=== PATIENT | male | born 1955 | race Caucasian/White ===

== ENCOUNTER 2025-02-07 10:03 | Outpatient (CLI) | payer MEDICARE, SELFPAY ==
--- NOTE | ~2025-02-07 | XR_ITS ---
XR chest 2V 02/07/2025 14:35 Indication: Cough, weakness and congestion Procedure: 2 view chest Comparison: No prior studies for comparison. Findings: There is patchy bilateral airspace disease involving the right upper and left lower lung, c onsistent with pneumonia. The lungs are hyperinflated which is consistent with, but not diagnostic of chronic obstructive pulmonary disease. No pleural effusion or pneumothorax. No acute osseous abnorma lity. Impression: 1: Patchy bilateral airspace disease, compatible with pneumonia. Reviewed, dictated and finalized at location B. Impression: 1: Patchy bilateral airspace disease, compatible with pneumonia.
[2025-02-07 10:23] LABS: Basophils Absolute Auto 0.05 K/mm3 (0.00-0.10); Basophils Percent Auto 0.3 % (0.0-1.0); Eosinophils Absolute Auto 0.11 K/mm3 (0.02-0.50); Eosinophils Percent Auto 0.7 % (1.0-6.0); Hematocrit 35.3 % (37.0-46.0); Hemoglobin 11.5 g/dL (12.4-15.3); Immature Granulocyte Absolute 0.14 K/mm3 (0.00-0.00); Immature Granulocyte Percent A 0.8 % (0.0-0.0); Immature Platelet Fraction Pct 1.4 % (1.0-7.0); Lymphocytes Absolute Auto 0.88 K/mm3 (1.10-4.50); Lymphocytes Percent Auto 5.3 % (18.0-42.0); Mean Corpuscular HGB Conc 32.6 g/dL (32-36); Mean Corpuscular Hemoglobin 31.4 pg (27.0-31.0); Mean Corpuscular Volume 96.4 fL (78.0-102.0); Mean Platelet Volume 9.5 fl (8.7-11.0); Monocytes Absolute Auto 1.07 K/mm3 (0.10-0.90); Monocytes Percent Auto 6.4 % (2.0-11.0); Neutrophils Absolute Auto 14.35 K/mm3 (1.70-7.20); Neutrophils Percent Auto 86.5 % (50.0-70.0); Platelet Count Result 630 K/mm3 (150-420); Red Blood Count 3.66 M/mm3 (4.70-6.10); Red Cell Distribution Width 12.2 % (11.6-14.4); White Blood Count 16.6 K/mm3 (4.8-10.8)
[2025-02-07 11:11] LABS: Alanine Aminotransferase 55 U/L (16-63); Albumin Level 2.8 g/dL (3.4-5.0); Alkaline Phosphatase 91 U/L (46-116); Anion Gap 10 mmol/L (4-12); Aspartate Amino Transferase 38 U/L (15-37); Bilirubin,Total 0.9 mg/dL (0.00-1.00); Blood Urea Nitrogen 16 mg/dL (7-18); Calcium 8.8 mg/dL (8.5-10.1); Carbon Dioxide 28 mmol/L (21-32); Chloride 102 mmol/L (98-108); Cholesterol 161 mg/dL (0-200); Estimated Glomerular Filt Rate > 60; Glucose 114 mg/dL (70-99); HDL Direct 32 mg/dL (40-60); LDL Cholesterol Calculated 112 mg/dL (<130); Osmolality Calculated 292 mOsm/kg (285-295); Potassium 4.4 mmol/L (3.5-5.1); Sodium 140 mmol/L (136-145); Total Protein 7.3 g/dL (6.4-8.2); Triglycerides 83 mg/dL (0-150)
--- OUTSIDE RECORDS SUMMARY | 2025-02-07 11:17 | XMS_ITS | Encounter Summary ---
Author Organization [facility] Address [address] [place] [address] Care Team Providers Care Retail Security Professional Name Role Phone En Ibrahim MD Primary Care Provider [phone] Nick Barrientos MD Unavailable Encounter Details Date Type Department Care Team (Late st Contact Info) Description 04/27/2019 Abstract SFL CONVERSION [address] [place] [address] , Generic Conversion, Social History Tobacco Use Types Packs/Day Years Used Date Smoking Tobacco: Every Day Cigarettes 1 45 Smokeless Tobacco: Never Alcohol Use Standard Drinks/Week Comments Yes 0 (1 standard drink = 0.6 oz pur e alcohol) moderate Sex and Gender Information Value Date Recorded Sex Assigned at Male 01/13/2025 12:37 PM MEMS DEVICE SCIENTIST Legal Sex Male 9:41 AM CDT Gender Identity Not on file Sexual Orientation Not on file Occupation Industry Job Start Date Job End Date retired Not on file Not on file Not on file documented as of this encounter Plan of Treatment Not on file documented as of this encounter Visit Diagnoses Not on filedocumented in this encounter Care Teams Retail Security Professional Relationship Specialty Start Date End Date En Ibrahim MD [address] [place] [address] PCP - General FAMILY PRACTICE 04/03/18 Nick Barrientos MD [address] [place] [address] Vascular/Plant Production Manager INTERNAL MEDICINE 04/03/18 documented as of this encounter
--- OUTSIDE RECORDS SUMMARY | 2025-02-07 11:17 | XMS_ITS | Clinical Summary ---
Author Organization [facility] Address [address] [place] [address] Care Team Providers Care Urban Gardening Specialist Name Role Phone En Ibrahim MD Primary Care Provider [phone] Nick Barrientos MD Unavailable Allergies No known active allergies Medications tamsulosin 0.4 MG Cap Take 0.4 mg by mouth daily. 3 04/12/2018 Active aspirin EC (ASPIRIN) 81 MG EC tablet Take 81 mg by mouth daily. Active atorvastatin 20 MG tablet TAKE 1 TABLET BY MOUTH EVERYDAY AT BEDTIME 5 12/31/2018 Active HYDROCHLOROTHIA ZIDE 12.5 MG capsule TAKE 1 CAPSULE BY MOUTH EVERY DAY IN THE MORNING 90 capsule 11/30/2020 Active Active Problems Problem Noted Date Diagnosed Date Nasolacrimal duct obstruction, acquired, right 0 05/01/2018 Bilateral carotid artery disease 04/24/2018 Smoker 04/24/2018 Hyperlipidemia, unspecified hyperlipidemia type 04/24/2018 Bilateral carotid artery disease Encounters Date Type Department Care Team Description 01/13/2025 12:41 PM MATHEMATICIAN RESEARCH - 01/13/2025 11:59 PM [facility] Hospital Encounter [facility] [address] [facility] [place] [address] En Ibrahim MD Discharge Disposition: Home or Self Care (Routine Discharge) 01/13/2025 Travel from Last 3 Months Family History Medical History Relation Comments Depression Daughter Stroke Daughter COPD Father Diabetes Father Cancer Mother Diabetes Mother Heart Disease Mother Relation Status Comments Daughter Alive Father (Age 76) Maternal Grandfather Maternal Grandmother Mother Alive diabetes,heart d isease Paternal Grandfather Paternal Grandmother Sister 1 Alive CVA Sister 2 (Age 52) mental retarda tion Social History Tobacco Use Types Packs/Day Years Used Date Smoking Tobacco: Every Day Cigarettes 0.5 45 Smokeless Tobacco: Never Tobacco Cessation:Ready to Q uit: No; Counseling Given: No Alcohol Use Standard Drinks/Week Comments Yes 0 (1 standard drink = 0.6 oz pur e alcohol) moderate Sex and Gender Information Value Date Recorded Sex Assigned at Male 01/13/2025 12:37 PM MATHEMATICIAN RESEARCH Legal Sex Male 9:41 AM CDT Gender Identity Not on file Sexual Orientation Not on file Occupation Industry Job Start Date Job End Date retired Not on file Not on file Not on file Last Filed Vital Signs Vital Sign Reading Time Taken Comments Blood Pressure 108/61 05/27/2020 1:21 PM CDT Pulse 69 05/27/2020 1:21 PM CDT Temperature - - Respiratory Rate 18 05/26/2020 12:33 PM CDT Oxygen Saturation 98% 05/27/2020 1:21 PM CDT Inhaled Oxygen Concentration - - Weight 68.6 kg (151 lb 3.2 oz) 05/26/2020 12:33 PM CDT Height 182.9 cm (6') 05/26/2020 12:33 PM CDT Body Mass Index 20.51 05/26/2020 12:33 PM CDT Plan of Treatment Health Maintenance Due Date Last Done Comments Colorectal Cancer Screening Colonoscopy (10 Years) 1953 Pneumococcal Vaccine: 65+ Ye ars (1 of 2 - PCV) 1959 DTaP, Tdap and Td Vaccines ( 1 - Tdap) 1972 Zoster Vaccines (1 of 2) 2003 Annual Medicare Wellness Visit 2018 COVID-19 Vaccine ( - 2023-2 5 season) 2024 Influenza Adult (#1) 2024 RSV Immunization or 60+ Years (1 - 1-dose 75+ series) 2028 Hepatitis C Completed 04/15/2020 Meningococcal B Vaccine Aged Out No l onger eligible based on patient's age to complete this topic Meningococcal Vaccine Aged Out No yury carlos eligible based on patient's age to complete this topic RSV Immunizations Under 20 Months Aged Out No longer eligible based on patient's age to complete this topic Procedures Procedure Name Priority Date/Time Associated Diagnosis Comments CTA NECK Routine 01/13/2025 1:27 PM MATHEMATICIAN RESEARCH Carotid stenosis CT LUNG SCREENING Routine 01/13/2025 1:0 2 PM MATHEMATICIAN RESEARCH Screening for lung cancer Personal history of tobacco use, presenting hazards to health HEPATITIS C ANTIBODY Routine 04/15/2020 12:37 PM CDT Need for hepatitis C screening test from Last 3 Months or Most Recently Relevant to Health Maintenance Results * CTA NECK (01/13/2025 1:27 PM MATHEMATICIAN RESEARCH) Anatomical Region Laterality Modality Neck Computed Tomogra phy 01/14/2025 7:56 AM MATHEMATICIAN RESEARCH Addenda Addendum by Nick Shaffer MD on 01/14/2025 9:56 AM MATHEMATICIAN RESEARCH [address] [place] [address] Axial, sagittal and coronal MIPS were constructed. Referred By: EN IBRAHIM Interpreted By: Nick Shaffer MD, 01/14/2025 9:55 AM Impressions 01/14/2025 8:05 AM MATHEMATICIAN RESEARCH IMPRESSION: 1. 2.3 cm long segment of severe high-grade near occlusive stenosis at the origin the right internal carotid artery measuring greater than 90% due to calcified plaque, increased compared to the prior CTA of 2018. 2. 1 cm long severe focal high-grade near occlusive stenosis at the origin the left internal carotid artery measuring greater than 90% due to calcified plaque, not significantly changed compared to the prior CTA. 3. Moderate stenosis at the origin the right vertebral artery, increased compared to the prior CTA. No measurable left vertebral artery stenosis 4. Moderate to severe degenerative changes of the cervical spine. 5. Pulmonary emphysema and biapical pleural scarring. Referred By: EN IBRAHIM Interpreted By: Nick Shaffer MD, 01/14/2025 7:56 AM Narrative 01/14/2025 8:05 AM MATHEMATICIAN RESEARCH [address] [place] [address] EXAMINATION:CT angiogram of the neck with contrast 01/13/2025 INDICATION:Carotid stenosis TECHNIQUE: Axial CT images of the neck were acquired following the administration of 100 mL Isovue 370 contrast axial sagittal and coronal reformats were constructed. Radiation dose reduction techniques were used. COMPARISON: Carotid ultrasound 10/31/2023, neck CTA 05/02/2018 FINDINGS:Aortic arch and origins of great vessels are unremarkable. The innominate and proximal subclavian arteries are unremarkable. The right common carotid artery is unremarkable. There is a 2.3 cm long segment of severe high-grade near occlusive stenosis at the origin of the right internal carotid artery measuring greater than 90% due to calcified plaque, increased compared to the prior CTA. The left common carotid artery is unremarkable. There is a 1 cm long severe focal high-grade near occlusive the stenosis at the origin of the left internal carotid artery measuring greater than 90% due to calcified plaque, not significantly changed compared to the prior CTA. The vertebral arteries are opacified and codominant. There is moderate to focal stenosis the origin the right vertebral artery. No measurable left vertebral artery stenosis. No dissection flap or evidence of aneurysm within the neck. Moderate to severe multilevel degenerative changes are noted throughout the cervical spine. Thyroid gland is unremarkable. Mild centrilobular emphysema and biapical scarring within the lung apices. There is a submillimeter calcification within the anterior left upper lobe, unchanged. Partially visualized intracranial contents are unremarkable. The orbits and globes are unremarkable. Paranasal sinuses and mastoid air cells are clear. Procedure Note Nick Shaffer MD - 01/14/2025 [facility] [address] [facility] [address] [place] [address] EXAMINATION:CT angiogram of the neck with contrast 01/13/2025 INDICATION:Carotid stenosis TECHNIQUE: Axial CT images of the neck were acquired following theadministration of 100 mL Isovue 370 contrast axial sagittal and coronalreformats were constructed. Radiation dose reduction techniques wereused. COMPARISON: Carotid ultrasound 10/31/2023, neck CTA 05/02/2018 FINDINGS:Aortic arch and origins of great vessels are unremarkable. Theinnominate and proximal subclavian arteries are unremarkable. The right common carotid artery is unremarkable. There is a 2.3 cm longsegment of severe high-grade near occlusive stenosis at the origin of theright internal carotid artery measuring greater than 90% due to calcifiedplaque, increased compared to the prior CTA. The left common carotid artery is unremarkable. There is a 1 cm longsevere focal high-grade near occlusive the stenosis at the origin of theleft internal carotid artery measuring greater than 90% due to calcifiedplaque, not significantly changed compared to the prior CTA. The vertebral arteries are opacified and codominant. There is moderate tofocal stenosis the origin the right vertebral artery. No measurable leftvertebral artery stenosis. No dissection flap or evidence of aneurysmwithin the neck. Moderate to severe multilevel degenerative changes are noted throughoutthe cervical spine. Thyroid gland is unremarkable. Mild centrilobularemphysema and biapical scarring within the lung apices. There is asubmillimeter calcification within the anterior left upper lobe,unchanged. Partially visualized intracranial contents are unremarkable.The orbits and globes are unremarkable. Paranasal sinuses and mastoid aircells are clear. IMPRESSION: 1. 2.3 cm long segment of severe high-grade near occlusive stenosis atthe origin the right internal carotid artery measuring greater than 90%due to calcified plaque, increased compared to the prior CTA of 2018. 2. 1 cm long severe focal high-grade near occlusive stenosis at theorigin the left internal carotid artery measuring greater than 90% due tocalcified plaque, not significantly changed compared to the prior CTA. 3. Moderate stenosis at the origin the right vertebral artery, increasedcompared to the prior CTA. No measurable left vertebral artery stenosis 4. Moderate to severe degenerative changes of the cervical spine. 5. Pulmonary emphysema and biapical pleural scarring. Referred By: EN IBRAHIM Interpreted By: Nick Shaffer MD, 01/14/2025 7:56 AM us En Ibrahim MD CT Edited Result - Final * CT LUNG SCREENING (01/13/2025 1:02 PM MATHEMATICIAN RESEARCH) Anatomical Region Laterality Modality Chest Computed Tomogra phy 01/15/2025 2:28 PM MATHEMATICIAN RESEARCH Narrative 01/15/2025 3:20 PM MATHEMATICIAN RESEARCH [address] [place] [address] EXAM: LUNG SCREENING LOW-DOSE CT THORAX WITHOUT CONTRAST DATE: January 13, 2025 HISTORY: Asymptomatic patient with history of smoking meeting CMS high-risk criteria for lung screening. * 69 years * 30 pack years or greater * Current smoker or have quit smoking within the last 15 years COMPARISON: CT lung screening 10/31/2023 TECHNIQUE: Noncontrast, helical, low-dose CT (LDCT) chest per standard departmental protocol. A dose lowering technique was used for this procedure, which may include, but is not limited to, dose reduction technique, automated exposure control, the use of iterative reconstruction, and ALARA (As Low As Reasonably Achievable) / Image Gently techniques. FINDINGS: Lung Screening Specific (LUNG-RADS): Nodule 1: 3 mm, solid, smooth, parenchymal nodule right lung apex (01/30). Potentially Significant Incidentals (LUNG-RADS category S): None. Pulmonary Incidentals: Biapical scarring. Mild pulmonary emphysema. Calcified granulomas. Other Incidentals: Mild atheromatous calcifications of the thoracic aorta and great vessels. Multivessel coronary artery calcifications. Right lower paratracheal lymph node measuring 10 mm, unchanged from prior (). Calcified hilar lymph nodes. Right adrenal adenoma, measuring 1.5 cm. Left adrenal adenoma, measuring 2.5 cm. Spondylosis. IMPRESSION; 1. LUNG-RADS category 2: Negative. Lung nodule(s) with benign appearance or behavior. 2. LUNG-RADS category S: Negative, no new/unknown potentially significant incidental findings requiring urgent additional evaluation. 3. Other incidental findings as above. RECOMMENDATIONS: Continued routine annual LDCT lung screening. Suggest next exam on or around December 2025. Thank you for choosing the [facility] Lung Screening Program. The attending radiologist has reviewed the image(s) and agrees with the content of this report. Ordered By: EN IBRAHIM Interpreted By: Brooks Eagle MD, 01/15/2025 2:28 PM Procedure Note Lonnie Brady MD - 01/15/[address] [place] [address] EXAM: LUNG SCREENING LOW-DOSE CT THORAX WITHOUT CONTRAST DATE: January 13, 2025 HISTORY: Asymptomatic patient with history of smoking meeting CMShigh-risk criteria for lung screening. * 69 years * 30 pack years or greater * Current smoker or have quit smoking within the last 15 years COMPARISON: CT lung screening 10/31/2023 TECHNIQUE: Noncontrast, helical, low-dose CT (LDCT) chest per standarddepartmental protocol. A dose lowering technique was used for thisprocedure, which may include, but is not limited to, dose reductiontechnique, automated exposure control, the use of iterativereconstruction, and ALARA (As Low As Reasonably Achievable) / Image Gentlytechniques. FINDINGS: Lung Screening Specific (LUNG-RADS): Nodule 1: 3 mm, solid, smooth, parenchymal nodule right lung apex(01/30). Potentially Significant Incidentals (LUNG-RADS category S): None. Pulmonary Incidentals: Biapical scarring. Mild pulmonary emphysema.Calcified granulomas. Other Incidentals: Mild atheromatous calcifications of the thoracic aortaand great vessels. Multivessel coronary artery calcifications. Right lowerparatracheal lymph node measuring 10 mm, unchanged from prior ().Calcified hilar lymph nodes. Right adrenal adenoma, measuring 1.5 cm. Leftadrenal adenoma, measuring 2.5 cm. Spondylosis. IMPRESSION; 1. LUNG-RADS category 2: Negative. Lung nodule(s) with benign appearanceor behavior. 2. LUNG-RADS category S: Negative, no new/unknown potentially significantincidental findings requiring urgent additional evaluation. 3. Other incidental findings as above. RECOMMENDATIONS: Continued routine annual LDCT lung screening. Suggestnext exam on or around December 2025. Thank you for choosing the [facility] ScreeningProgram. The attending radiologist has reviewed the image(s) and agrees with thecontent of this report. Ordered By: EN IBRAHIM Interpreted By: Brooks Eagle MD, 01/15/2025 2:28 PM us En Ibrahim MD CT Final Result * HEPATITIS C ANTIBODY (04/15/2020 12:37 PM CDT) HEPATITIS C AB NON-REACTI VE NON-REACT TELMA 04/16/2020 7:04 PM CDT [facility] Comment: ANTIBODIES TO HCV NOT DETECTED. DOES NOT EXCLUDE THE POSSIBILITY OF EXPOSURE TO HCV. 04/15/2020 12:3 7 PM CDT us En Ibrahim MD LABORATORY Final Result [facility] [address] [place] [address], [place] [phone] [id number] from Last 3 Months or Most Recently Relevant to Health Maintenance Insurance [place] [address] [place] [phone] [facility] Care Teams Urban Gardening Specialist Relationship Specialty Start Date End Date En Ibrahim MD [address] [place] [phone] PCP - General FAMILY PRACTICE 04/03/18 Nick Barrientos MD [address] [place] [phone] Vascular/Lead Nurse INTERNAL MEDICINE 04/03/18
--- OUTSIDE RECORDS SUMMARY | 2025-02-07 11:17 | XMS_ITS | Clinical Summary ---
Author Organization [facility] Address [address] [place] [address] Phone Care Team Providers Care Practice Coordinator Name Role Phone nE Ibrahim MD Primary Care Provider [phone] Allergies No known active allergies Medications pravastatin (PRAVACHOL) 10 MG Tablet Take by mouth. 04/02/2018 Active Dextran 70-Hypromellose 0.1-0.3 % Solution Place in affected eye(s). Active aspirin EC 81 MG Tablet Delayed Response Take by mouth. Active tamsulosin (FLOMAX) 0.4 MG CapsuleIndicati ons:BPH with obstruction/low er urinary tract symptoms,Urinar y urgency TAKE 1 CAPSULE BY MOUTH EVERY DAY 90 Capsule 3 03/01/2021 Active Family History Medical History Relation Name Comments Kidney Stones Brother Kidney Stones Mother Kidney Stones Sister Relation Name Status Comments Brother Mother Sister Social History Tobacco Use Types Packs/Day Years Used Date Smoking Tobacco: Every Day Cigarettes 0.5 45 Smokeless Tobacco: Never Tobacco Cessation:Ready to Q uit: Yes; Counseling Given: Yes Alcohol Use Standard Drinks/Week Comments Yes 35 (1 standard drink = 0.6 oz pu re alcohol) Sexually Active Control Partners Comments Yes Female Sex and Gender Information Value Date Recorded Sex Assigned at Not on file Legal Sex Male 3:03 PM CDT Gender Identity Not on file Sexual Orientation Not on file Last Filed Vital Signs Vital Sign Reading Time Taken Comments Blood Pressure 120/78 12/11/2019 1:11 PM LEAD DENTAL ASSISTANT Pulse 81 12/11/2019 1:11 PM LEAD DENTAL ASSISTANT Temperature 36.5 C (97.7 F) 12/11/2019 1:11 PM LEAD DENTAL ASSISTANT Respiratory Rate 20 12/11/2019 1:11 PM LEAD DENTAL ASSISTANT Oxygen Saturation 97% 12/11/2019 1:11 PM LEAD DENTAL ASSISTANT Inhaled Oxygen Concentration - - Weight 72.4 kg (159 lb 9.6 oz) 12/11/2019 1:11 P M LEAD DENTAL ASSISTANT Height 182.9 cm (6') 12/11/2019 1:11 PM LEAD DENTAL ASSISTANT Body Mass Index 21.65 12/11/2019 1:11 PM LEAD DENTAL ASSISTANT Plan of Treatment Health Maintenance Due Date Last Done Comments Hepatitis C Virus (HCV) Screening 1955 TdaP Immunization 1955 Colonoscopy 1998 Colorectal Cancer Screening 1998 Cologuard 2003 Immunochemical Fecal Occult Blood 2003 Zoster Immunization (1 of 2) 2003 Pneumococcal Immunization (5 0+ years) (2 of 2 - PCV) 04/03/2020 04/03/2019 Influenza Immunization (#1) 2024 SARS-COV-2 Immunization (2023- season) 2024 Respiratory Syncytial Virus (RSV) Immunization (Adult) (1 - 1-dose 75+ series) 2028 Pneumococcal Immunization Combined Discontinued 04/03/2019 PSA Discussion Discontinued 12/11/2019, 05/02/2018 Hepatitis B Immunization Aged Out No longer eligible based on patient's age to complete this topic Meningococcal Immunization (ACWY) Aged Out No longer eligible based on patient's age to complete this topic Rotavirus Immunization Aged Out No lo nger eligible based on patient's age to complete this topic Procedures Procedure Name Priority Date/Time Associated Diagnosis Comments PSA DIAGNOSTIC,TOTAL Routine 12/11/2019 2:09 PM LEAD DENTAL ASSISTANT BPH with obstruction/lower urinary tract symptoms from Last 3 Months or Most Recently Relevant to Health Maintenance Results * PSA DIAGNOSTIC,TOTAL (12/11/2019 2:09 PM LEAD DENTAL ASSISTANT) PSA, TOTAL (PROSTATIC SPECIFIC ANTIGEN) 2.32 <=4.00 ng/mL 12/11/2019 4:42 PM LEAD DENTAL ASSISTANT [facility] Blood specimen (specimen) Venipuncture / Unknown 12/11/2019 2:09 PM LEAD DENTAL ASSISTANT 12/11/2019 3:46 PM LEAD DENTAL ASSISTANT Narrative [facility] - 12/11/2019 4:42 PM LEAD DENTAL ASSISTANT PSA NOTE: The PSA value should be used in conjunction with information available from clinical evaluation and other diagnostic procedures. us Teresa Aguilar MD CHEMISTRY ORDERABLES Final Result [facility] [address] [place] [address] from Last 3 Months or Most Recently Relevant to Health Maintenance Insurance MEDICARE Care Teams Practice Coordinator Relationship Specialty Start Date End Date En Ibrahim MD [address] [place] [address] PCP - General Family Medicine 03/22/18
--- OUTSIDE RECORDS SUMMARY | 2025-02-07 11:17 | XMS_ITS | Clinical Summary ---
Author Organization [facility] Address [address] [place] [address] Care Team Providers Care Materials And Processes Manager Name Role Phone En Ibrahim MD Primary Care Provider [phone] Source Comments [facility],non-owned Affiliates and Associated Physician Practices is amultiple site organization consisting of ambulatory clinics and hospital sitesin [place], [place], [place] and [place]. This disclosure is being madepursuant to the Care Everywhere program and may not contain all information available regarding this patient. Last updated 18.[facility] Allergies No known active allergies Medications * Be aware that medications may not be up to date on this document. Alwaysverify current medications with the patient. Medication Sig Dispensed Refills Start Date End Date Status pravastatin (PRAVACHOL) 10 MG tablet Take 1 tablet by mouth once daily 04/02/2018 Active tamsulosin (FLOMAX) 0.4 MG capsule Take 0.4 mg by mouth once daily 3 04/12/2018 Active Dextran 70-Hypromellose (ARTIFICIAL TEARS) 0.1-0.3 % SOLN 1 drop by Ophthalmic route as needed Active Active Problems Problem Noted Date Diagnosed Date Nasolacrimal duct obstruction, acquired, right 0 05/01/2018 Social History Tobacco Use Types Packs/Day Years Used Date Smoking Tobacco: Never Assessed Sex and Gender Information Value Date Recorded Sex Assigned at Not on file Gender Identity Not on file Sexual Orientation Not on file Plan of Treatment Health Maintenance Due Date Last Done Comments COLOGUARD (AGES 45-75) - COL ON CA SCREENING 1953 COLON MONITORING 1953 COLONOSCOPY - COLON CA SCREENING 1953 CT COLONOGRAPHY - COLON CA SCREENING 1953 Colorectal Cancer Screening 1953 FIT - COLON CA SCREENING 1953 FLEX SIG - COLON CA SCREENING 1955 MEDICARE AWV 12 MONTHS 1953 HEPATITIS C SCREENING 06/30/1971 DTAP/TDAP/TD VACCINES (1 - Tdap) 1972 PNEUMOCOCCAL VACCINE 50+ (1 of 1 - PCV) 2003 ZOSTER VACCINE (1 of 2) 2003 COVID-19 VACCINE (1 - 2023-2 5 season) 2024 INFLUENZA VACCINE (#1) 2024 DEPRESSION SCREENING 11/20/2024 Respiratory Syncytial Virus (RSV) Vaccine Pt: or over 60 yrs (1 - 1-dose 75+ series) 2028 HEPATITIS B VACCINE Aged Out No longe r eligible based on patient's age to complete this topic HIB VACCINE Aged Out No longer eligi ble based on patient's age to complete this topic HPV VACCINE Aged Out No longer eligi ble based on patient's age to complete this topic MENINGOCOCCAL (Group B) VACC INE SHARED DECISION-MAKING Aged Out No longer eligibl e based on patient's age to complete this topic MENINGOCOCCAL GROUPS A/C/Y/W VACCINE Aged Out No longer eligible b ased on patient's age to complete this topic Care Teams Materials And Processes Manager Relationship Specialty Start Date End Date En Ibrahim MD [address] [place] [phone] PCP - General 04/10/18
[2025-02-07 11:22] LABS: Thyroid Stimulating Hormone Reflex 0.65 u/IU/mL (0.36-3.74)
[2025-02-07 12:21] LABS: Iron 12 ug/dL (65-175); Percent Iron Saturation 8 % (12-57)
== END 2025-02-07 10:04 | disposition home or self-care (01) ==
PROVIDERS: PCP Family Medicine; Visit Provider Nurse Practitioner Family
DX: E78.5 Hyperlipidemia, unspecified (principal); R79.89 Other specified abnormal findings of blood chemistry; R91.8 Other nonspecific abnormal finding of lung field
CPT/HCPCS: 36415; 71046; 80053; 80061; 83540; 83550; 84443; 85025; 85055

== ENCOUNTER 2025-02-08 14:46 | Emergency (ER) | payer MEDICARE, SELFPAY ==
[2025-02-08] VITALS (18 sets, daily range): BP systolic 94–171; BP diastolic 59–94; PULSE 88–106; RESP 15–23; TEMP 36.3–36.9; O2SAT 91–100
--- NOTE | ~2025-02-08 | CT_ITS ---
EXAMINATION: CTA brain carotid DATE: 02/08/2025 15:30 INDICATION: Facial weakness. Cerebrovascular accident. TECHNIQUE: Computed tomographic angiography (CTA) of the head was performed with 100 mL Omnipaque-350 intravenous contrast. CTA of the neck was performed with intravenous contrast. Automated exposure co ntrol and iterative reconstruction technique were employed. The dose-length product was 1041.93 mGy-c m. Maximum intensity projection and volume rendered 3D-reconstructions were created by the [employer] on a separate workstation. COMPARISON: Head CT 02/08/2025 FINDINGS: HEAD CTA: There are scattered areas of low attenuation in the cerebral white matter, which is within normal limits for the patient's age. There is no intracranial hemorrhage, acute infarction, or abnorm al intracranial mass lesion. The ventricles are normal in size. The orbits are normal. There is mucos al thickening in the paranasal sinuses. There is fluid in left maxillary sinus. The mastoid air cells are normal. The vertebral arteries are codominant. There is no significant stenosis of basilar arter y or the posterior cerebral arteries. There is total occlusion of cervical right internal carotid art mera with reconstitution of flow in the cavernous segment. Right A1 anterior cerebral artery segment i s small with surrounding collateral arteries. There is no significant stenosis of the middle cerebral arteries. Anterior communicating artery is normal. The posterior communicating arteries are normal. There is no aneurysm. NECK CTA: There are patchy airspace and groundglass opacities in the visualized portions of the lung apices. There are no pathologically enlarged lymph nodes. There is no significant stenosis of the yonas tebral arteries. There is total occlusion of right cervical internal carotid artery. There is plaque in the proximal left internal carotid artery. There is 80% stenosis of the proximal left internal car otid artery relative to normal distal artery lumen diameter (NASCET criteria). There is severe cervic al spondylosis. IMPRESSION: 1. 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 2. 80% stenosis of the proximal left internal carotid artery relative to normal distal artery lumen d iameter (NASCET criteria). 3. Bilateral lung disease, consistent with pulmonary edema versus pneumonia. Reviewed, dictated and finalized at location A. IMPRESSION: 1. 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 2. 80% stenosis of the proximal left internal carotid artery relative to normal distal artery lumen diameter (NASCET criteria). 3. Bilateral lung disease, consistent with pulmonary edema versus pneumonia.
--- NOTE | ~2025-02-08 | CT_ITS ---
EXAMINATION: CT brain wo con DATE: 02/08/2025 15:00 INDICATION: Facial droop, cerebrovascular accident TECHNIQUE: Computed tomography (CT) of the head was performed without intravenous contrast. The mA wa s adjusted according to patient size. Iterative reconstruction technique was employed. Exam dose: 60 5.33 mGy-cm total exam DLP. COMPARISON: None FINDINGS: Mild bilateral vertebral artery and basilar artery and more prominent bilateral carotid sip hon internal carotid artery calcifications. There is nonspecific diminished attenuation of the cerebr al white matter, likely due to chronic small vessel ischemic changes. No intracranial mass lesion or hemorrhage or cerebrovascular accident is evident. CT is not sensitive for detection of hyperacute ischemic infarct. No subdural or epidural hematoma. There is mucoperiosteal thickening and prominent fluid collection within the left maxillary sinus. Th e remaining paranasal sinuses and the mastoid air cells are well-developed and aerated. Prominent rig htward deviation of the nasal septum is noted. No fracture or bone destruction of the cranial vault. IMPRESSION: No acute intracranial finding; no evidence of intracranial hemorrhage Left maxillary sinusitis Dr. oMnte telephoned the report on 02/08/2025 at 1535 hours to emergency room physician Dr. Sin Reviewed, dictated and finalized at Location [facility]. Reviewed, dictated and finalized at location A. IMPRESSION: No acute intracranial finding; no evidence of intracranial hemorrh age Left maxillary sinusitis Dr. Monte telephoned the report on 02/08/2025 at 1535 hours to emergency room eboni Sin
--- OUTSIDE RECORDS SUMMARY | 2025-02-08 14:48 | XMS_ITS | Clinical Summary ---
Author Organization [facility] Address [address] [place] [address] Phone Care Team Providers Care Aesthetician Name Role Phone En Ibrahim MD Primary Care Provider [phone] Allergies No known active allergies Medications pravastatin [...] Comments Blood Pressure 120/78 12/11/2019 1:11 PM INSTRUCTOR KINDERGARTEN Pulse 81 12/11/2019 1:11 PM INSTRUCTOR KINDERGART[employer] Temperature 36.5 C (97.7 F) 12/11/2019 1:11 PM INSTRUCTOR KINDERGARTEN Respiratory Rate 20 12/11/2019 1:11 PM INSTRUCTOR KINDERGARTEN Oxygen Saturation 97% 12/11/2019 1:11 PM INSTRUCTOR KINDERGARTEN Inhaled Oxygen Concentration - - Weight 72.4 kg (159 lb 9.6 oz) 12/11/2019 1:11 P M INSTRUCTOR KINDERGART[employer] Height 182.9 cm (6') 12/11/2019 1:11 PM INSTRUCTOR KINDERGARTEN Body Mass Index 21.65 12/11/2019 1:11 PM INSTRUCTOR KINDERGARTEN Plan of Treatment Health Maintenance Due Date [...] Comments PSA DIAGNOSTIC,TOTAL Routine 12/11/2019 2:09 PM INSTRUCTOR KINDERGARTEN BPH with obstruction/lower urinary tract symptoms from Last 3 Months or Most Recently Relevant to Health Maintenance Results * PSA DIAGNOSTIC,TOTAL (12/11/2019 2:09 PM INSTRUCTOR KINDERGARTEN) PSA, TOTAL (PROSTATIC SPECIFIC ANTIGEN) 2.32 <=4.00 ng/mL 12/11/2019 4:42 PM INSTRUCTOR KINDERGARTEN [facility] Blood specimen (specimen) Venipuncture / Unknown 12/11/2019 2:09 PM INSTRUCTOR KINDERGARTEN 12/11/2019 3:46 PM INSTRUCTOR KINDERGARTEN Narrative [facility] - 12/11/2019 4:42 PM INSTRUCTOR KINDERGARTEN PSA NOTE: The PSA value should be used in conjunction with information available from clinical evaluation and other diagnostic procedures. us Teresa Aguilar MD CHEMISTRY ORDERABLES Final Result [facility] [address] [place] [address] from Last 3 Months or Most Recently Relevant to Health Maintenance Insurance MEDICARE Care Teams Aesthetician Relationship Specialty Start Date End Date En Ibrahim MD [address] [place] [address] PCP - General Family Medicine 03/22/18
--- OUTSIDE RECORDS SUMMARY | 2025-02-08 14:48 | XMS_ITS | Clinical Summary ---
Author Organization [facility] Address [address] [place] [address] Care Team Providers Care Package Line Operator Name Role Phone En Ibrahim MD Primary Care Provider [phone] Source Comments [facility],non-owned Affiliates and Associated Physician Practices is amultiple site organization consisting of ambulatory clinics and hospital sitesin [place], [place], [place] and [place]. This disclosure is being madepursuant to the Care Everywhere program and may not contain all information available regarding this patient. Last updated 18.[facility] Allergies No known active allergies Medications * [...] age to complete this topic Care Teams Package Line Operator Relationship Specialty Start Date End Date En Ibrahim MD [address] [place] [phone] PCP - General 04/10/18
--- OUTSIDE RECORDS SUMMARY | 2025-02-08 14:48 | XMS_ITS | Clinical Summary ---
Author Organization [facility] Address [address] [place] [address] Care Team Providers Care Elementary [employer] Librarian Name Role Phone En Ibrahim MD Primary Care Provider [phone] Nick Barrientos MD Unavailable Allergies No known [...] Department Care Team Description 01/13/2025 12:41 PM MEAT PRESS OPERATOR - 01/13/2025 11:59 PM [facility] Hospital Encounter [facility] [address] [place] [address] En Ibrahim MD Discharge Disposition: Home or [...] Sex Assigned at Male 01/13/2025 12:37 PM MEAT PRESS OPERATOR Legal Sex Male 9:41 AM CDT Gender [...] Comments CTA NECK Routine 01/13/2025 1:27 PM MEAT PRESS OPERATOR Carotid stenosis CT LUNG SCREENING Routine 01/13/2025 1:0 2 PM MEAT PRESS OPERATOR Screening for lung cancer Personal history of tobacco use, presenting hazards to health HEPATITIS C ANTIBODY Routine 04/15/2020 12:37 PM CDT Need for hepatitis C screening test from Last 3 Months or Most Recently Relevant to Health Maintenance Results * CTA NECK (01/13/2025 1:27 PM MEAT PRESS OPERATOR) Anatomical Region Laterality Modality Neck Computed Tomogra phy 01/14/2025 7:56 AM MEAT PRESS OPERATOR Addenda Addendum by Nick Shaffer MD on 01/14/2025 9:56 AM MEAT PRESS OPERATOR [address] [place] [address] Axial, sagittal and coronal MIPS were constructed. Referred By: EN IBRAHIM Interpreted By: Nick Shaffer MD, 01/14/2025 9:55 AM Impressions 01/14/2025 8:05 AM MEAT PRESS OPERATOR IMPRESSION: 1. 2.3 cm long segment of [...] 01/14/2025 7:56 AM Narrative 01/14/2025 8:05 AM MEAT PRESS OPERATOR [address] [place] [address] EXAMINATION:CT angiogram of the neck with contrast [...] Procedure Note Nick Shaffer MD - 01/14/2025 [facility] [address] [facility] [place] [address] EXAMINATION:CT angiogram of the neck with contrast [...] * CT LUNG SCREENING (01/13/2025 1:02 PM MEAT PRESS OPERATOR) Anatomical Region Laterality Modality Chest Computed Tomogra phy 01/15/2025 2:28 PM MEAT PRESS OPERATOR Narrative 01/15/2025 3:20 PM MEAT PRESS OPERATOR [address] [place] [address] EXAM: LUNG SCREENING LOW-DOSE CT THORAX WITHOUT [...] December 2025. Thank you for choosing the [facility] Lung Screening Program. The attending radiologist has reviewed the image(s) and agrees with the content of this report. Ordered By: EN IBRAHIM Interpreted By: Brooks Eagle MD, 01/15/2025 2:28 PM Procedure Note Lonnie Brady MD - 01/15/[address] [place] [address] EXAM: LUNG SCREENING LOW-DOSE CT THORAX WITHOUT [...] December 2025. Thank you for choosing the [facility] Lung ScreeningProgram. The attending radiologist has reviewed the image(s) and agrees with thecontent of this report. Ordered By: EN IBRAHIM Interpreted By: Brooks Eagle MD, 01/15/2025 2:28 PM us En Ibrahim MD CT Final Result * HEPATITIS C ANTIBODY (04/15/2020 12:37 PM CDT) HEPATITIS C AB NON-REACTI VE NON-REACT TELMA 04/16/2020 7:04 PM CDT [facility] Comment: ANTIBODIES TO HCV NOT DETECTED. DOES NOT EXCLUDE THE POSSIBILITY OF EXPOSURE TO HCV. 04/15/2020 12:3 7 PM CDT us En Ibrahim MD LABORATORY Final Result [facility] [address] [place] [address], [place] [phone] from Last 3 Months or Most Recently Relevant to Health Maintenance Insurance MEDICARE [facility] Care Teams Elementary School Librarian Relationship Specialty Start Date End Date En Ibrahim MD [address] [place] [phone] PCP - General FAMILY PRACTICE 04/03/18 Nick Barrientos MD [address] [place] [phone] Vascular/Youth Accommodation Support Worker INTERNAL MEDICINE 04/03/18
--- OUTSIDE RECORDS SUMMARY | 2025-02-08 14:48 | XMS_ITS | Encounter Summary ---
Author Organization [facility] Address [address] [place] [address] Care Team Providers Care Clinical Nurse Specialist Name Role Phone En Ibrahim MD Primary Care Provider [phone] Nick Barrientos MD Unavailable Encounter Details Date Type Department Care Team (Late st Contact Info) Description 04/27/2019 Abstract [facility] CONVERSION [address] [place] [address] , Generic Conversion, Social History Tobacco Use Types Packs/Day Years Used Date Smoking Tobacco: Every Day Cigarettes 1 45 Smokeless Tobacco: Never Alcohol Use Standard Drinks/Week Comments Yes 0 (1 standard drink = 0.6 oz pur e alcohol) moderate Sex and Gender Information Value Date Recorded Sex Assigned at Male 01/13/2025 12:37 PM MANAGER PHP Legal Sex Male 9:41 AM CDT Gender Identity Not on file Sexual Orientation Not on file Occupation Industry Job Start Date Job End Date retired Not on file Not on file Not on file documented as of this encounter Plan of Treatment Not on file documented as of this encounter Visit Diagnoses Not on filedocumented in this encounter Care Teams Clinical Nurse Specialist Relationship Specialty Start Date End Date En Ibrahim MD [address] [place] [address] PCP - General FAMILY PRACTICE 04/03/18 Nick Barrientos MD [address] [place] [address] Vascular/Metal Finisher INTERNAL MEDICINE 04/03/18 documented as of this encounter
--- NOTE | 2025-02-08 14:53 | ECG_ITS ---
Test Date: 2025-02-08 15:10:26 Measurements Intervals [place]romas Rate: 101 P: 77 IN: 149 QRS: 67 QRSD: 93 T: 28 QT: 309 QTc: 402 Interpretive Statements SINUS TACHYCARDIA POSSIBLE LEFT ATRIAL ENLARGEMENT [-0.1mV P-WAVE IN V1/V2] NONSPECIFIC ST & T-WAVE ABNORMALITY ABNORMAL RHYTHM ECG No previous ECG available for comparison Electronically Signed On 02-10-2025 16:30:14 CDT by Robert Khan M.D.
[2025-02-08 15:09] LABS: Basophils Absolute Auto 0.04 K/mm3 (0.00-0.10); Basophils Percent Auto 0.2 % (0.0-1.0); Eosinophils Absolute Auto 0.01 K/mm3 (0.02-0.50); Eosinophils Percent Auto 0.1 % (1.0-6.0); Hematocrit 33.9 % (37.0-46.0); Immature Granulocyte Absolute 0.16 K/mm3 (0.00-0.00); Immature Granulocyte Percent A 0.9 % (0.0-0.0); Immature Platelet Fraction Pct 1.7 % (1.0-7.0); Lymphocytes Absolute Auto 0.54 K/mm3 (1.10-4.50); Lymphocytes Percent Auto 3.1 % (18.0-42.0); Mean Corpuscular HGB Conc 32.4 g/dL (32-36); Mean Corpuscular Hemoglobin 31.2 pg (27.0-31.0); Mean Platelet Volume 9.7 fl (8.7-11.0); Monocytes Absolute Auto 0.56 K/mm3 (0.10-0.90); Monocytes Percent Auto 3.2 % (2.0-11.0); Neutrophils Absolute Auto 16.01 K/mm3 (1.70-7.20); Neutrophils Percent Auto 92.5 % (50.0-70.0); Platelet Count Result 740 K/mm3 (150-420); Red Blood Count 3.53 M/mm3 (4.70-6.10); Red Cell Distribution Width 12.4 % (11.6-14.4); White Blood Count 17.3 K/mm3 (4.8-10.8)
[2025-02-08 15:14] LABS: Glucose Point of Care 177 mg/dl (65-105)
[2025-02-08 15:20] LABS: Partial Thromboplastin Time 26.6 Sec (23.9-30.70); Prothrombin Time 10.9 Seconds (9.50-12.1)
[2025-02-08 15:24] LABS: Alanine Aminotransferase 59 U/L (16-63); Albumin Level 2.9 g/dL (3.4-5.0); Alkaline Phosphatase 80 U/L (46-116); Anion Gap 11 mmol/L (4-12); Aspartate Amino Transferase 45 U/L (15-37); Bilirubin,Total 0.4 mg/dL (0.00-1.00); Blood Urea Nitrogen 21 mg/dL (7-18); Calcium 9.7 mg/dL (8.5-10.1); Carbon Dioxide 27 mmol/L (21-32); Chloride 102 mmol/L (98-108); Estimated CRCL calculation 52 ml/min; Estimated Glomerular Filt Rate > 60; Glucose 128 mg/dL (70-99); Osmolality Calculated 295 mOsm/kg (285-295); Potassium 4.1 mmol/L (3.5-5.1); Sodium 140 mmol/L (136-145); Total Protein 7.9 g/dL (6.4-8.2); Troponin I 12.3 ng/L (0.00-60.4)
--- NOTE | 2025-02-08 15:28 | ED.WEAKNESS ---
HPI - Weakness General Chief complaint: Suspected CVA Stated complaint: stroke symptoms Source: patient Mode of arrival: ambulatory Limitations: no limitations History of Present Illness HPI Narrative: this is a 68-year-old male with history of carotid artery disease and smoking history presents with some onset of facial droop with dysarthria that started approximately 2:30 p.m. arrived to our emergency department at 2:40 a.m. p.m., patient was assessed and his symptoms involved into a left arm drift and weakness with no leg weakness. The patient has a history of pneumonia that was diagnosed yesterday and was started on antibiotics. Patient has no fever chills his blood glucose level was 177 on finger stick. There is no fever chills no shortness of breath no chest pain. MD Complaint: focal weakness Onset (ago): minute(s) Duration: constant Location: left hand Severity: moderate Quality: numbness Related Data Home Medications ?Medication ?Instructions ?Recorded ?Confirmed ?Last Taken ?Type Oil of Oregano w/ black seed oil 6,000 mg .Route DAILY 02/07/25 02/08/25 02/08/25 History calcium 300 mg-D3 25 mcg-magnesium 1 tablet PO DAILY 02/07/25 02/08/25 02/08/25 History 66 mg-K2 37.5 mcg-herbal tablet (Alive Calcium-Vitamin D3-K2) eylvkgth-hy-kznub 300 mcg-K 60 1 tablet PO DAILY 02/07/25 02/08/25 02/08/25 History mcg-lycop 600 mcg-lutein 300 mcg tablet (Centrum Silver Ultra Men's) tamsulosin 0.4 mg capsule 0.4 mg PO DAILY 02/07/25 02/08/25 02/08/25 History Allergies Allergy/AdvReac Type Severity Reaction Status Date / Time No Known Allergies Allergy Verified 02/08/25 15:08 Review of Systems Review of Systems: All systems reviewed & are unremarkable except as noted in HPI and below [facility] Past Medical History Medical History Iron deficiency anemia Carotid artery narrowing Carotid doppler performed 12/2024 @ [facility] Surgical History Surgical History Mandibular fracture Family History Family History Father COPD (chronic obstructive pulmonary disease) Mother Cancer Social History Social History Smoking packs per day: 1 Smoking cigarettes per day: 20.0 Years smoked: 55 Smoking pack-years: 55.00 Smoking status: Current every day smoker Tobacco type: cigarettes Second hand tobacco smoke exposure: Yes Alcohol intake: current Drinks per week: 5 Substance use type: marijuana Do You Feel Safe in your Home?: Yes Lack of Transportation: No Lack of Food: Never True Current Housing: I Have Housing Concerned About Future Housing: No Difficulty Paying Gas/Electric Bills: No Difficulty Paying for Meds: No Currently Unemployed: No Education: Trade/Vocational Certificate Difficulty w/ Childcare or Family Care: No Living arrangements: alone Occupation/Education: retired Gender identity (if verbalized by the patient): Male Sexual Orientation (if Verbalized by the Patient): Straight or Heterosexual Spiritual care concerns: No Agree to blood products: Yes Exam Const: General: healthy appearing, no acute distress and ill appearing Nutritional Appearance: well nourished Orientation/consciousness: patient oriented x3 Limitations: physical limitations HENMT: Other: Left facial droop with dysarthria Eyes: Conjunctivae: conjunctivae normal Pupils: Equal, round and reactive pupils present EOM: EOMs intact bilaterally Neck: Neck: normal visual inspection, no lymphadenopathy and no meningeal signs Chest: Chest palpation & inspection: normal inspection of the chest Resp: Effort & Inspection: normal respiratory effort Auscultation: clear to auscultation bilaterally Cardio: Rate: tachycardic Rhythm: regular rhythm GI: GI Palp: Yes Soft to palpation Auscultation: normal bowel sounds : General: Yes bladder normal to palpation Back/Spine/Pelvis: Back: no CVA tenderness Skin: General skin exam: normal color Rashes: no rashes Neuro: Speech: Abnormal speech present Other: left arm drift with decreased motor strength in his left arm. Extrem: General: no pedal edema Course Course Emergency Course: NIH stroke scale assessment received 6 for a left facial droop, with dysarthria, and with left arm weakness with a drift and decreased sensation in the left arm. CT scan of the brain performed and reviewed CTA brain and cervical neck performed and reviewed. [place] [address] with an H&H of 11 and 33 with platelet count of 740 troponins were negative patient had EKG which shows sinus tachy at 1:[address] or T changes. Exclusion criteria reviewed and patient is able to take a tPA, tPA has been started. Spoke to neurologist at [facility] which accepted the patient for transfer. Vital Signs Vital signs: Vital Signs Respiratory Rate 18 02/08/25 14:46 Pulse Oximetry 95 02/08/25 14:46 Temperature 36.9 C 02/08/25 16:05 Pulse Rate 97 02/08/25 16:35 Respiratory Rate 18 02/08/25 16:35 Blood Pressure 141/65 H 02/08/25 16:35 Pulse Oximetry 100 02/08/25 16:35 Oxygen Delivery Nasal Cannula 02/08/25 16:35 Oxygen Flow Rate 2 02/08/25 16:35 MDM - Weakness Lab Data 02/08/25 15:03 02/08/25 15:03 Labs: Lab Results 02/08/25 02/08/25 02/08/25 Range/Units 15:03 15:04 15:10 WBC 17.3 H (4.8-10.8) K/mm3 RBC 3.53 L (4.70-6.10) M/mm3 Hgb 11.0 L (12.4-15.3) g/dL Hct 33.9 L (37.0-46.0) % MCV 96.0 (78.0-102.0) fL MCH 31.2 H (27.0-31.0) pg MCHC 32.4 (32-36) g/dL RDW 12.4 (11.6-14.4) % Plt Count 740 H (150-420) K/mm3 MPV 9.7 (8.7-11.0) fl Immature Gran % (Auto) 0.9 H (0.0-0.0) % Neut % (Auto) 92.5 H (50.0-70.0) % Lymph % (Auto) 3.1 L (18.0-42.0) % Rawlins % (Auto) 3.2 (2.0-11.0) % Eos % (Auto) 0.1 L (1.0-6.0) % Baso % (Auto) 0.2 (0.0-1.0) % Lymph # (Auto) 0.54 L (1.10-4.50) K/mm3 Rawlins # (Auto) 0.56 (0.10-0.90) K/mm3 Eos # (Auto) 0.01 L (0.02-0.50) K/mm3 Baso # (Auto) 0.04 (0.00-0.10) K/mm3 Abs Immat Gran (auto) 0.16 H (0.00-0.00) K/mm3 Absolute Neuts (auto) 16.01 H (1.70-7.20) K/mm3 Absolute Nucleated RBC 0.00 (0.00-0.00) K/mm3 Nucleated RBC % 0.0 (0-0.0) % % Immature Plt Fraction 1.7 (1.0-7.0) % PT 10.9 (9.50-12.1) Seconds INR 1.0 APTT 26.6 (23.9-30.70) Sec Sodium 140 (136-145) mmol/L Potassium 4.1 (3.5-5.1) mmol/L Chloride 102 (98-108) mmol/L Carbon Dioxide 27 (21-32) mmol/L Anion Gap 11 (4-12) mmol/L BUN 21 H (7-18) mg/dL Creatinine 1.04 (0.70-1.30) mg/dL Estim Creat Clear Calc 52 ml/min Estimated GFR > 60 (59 - ) Glucose 128 H (70-99) mg/dL POC Capillary Glucose (65-105) mg/dl Calculated Osmolality 295 (285-295) mOsm/kg Calcium 9.7 (8.5-10.1) mg/dL Total Bilirubin 0.4 (0.00-1.00) mg/dL AST 45 H (15-37) U/L ALT 59 (16-63) U/L Alkaline Phosphatase 80 (46-116) U/L Troponin I 12.3 (0.00-60.4) ng/L Total Protein 7.9 (6.4-8.2) g/dL Albumin 2.9 L (3.4-5.0) g/dL Urine Color Yellow (Yellow) Urine Appearance Clear (Clear) Urine pH 6.0 (5.0-8.0) Ur Specific Gracey 1.015 (1.010-1.020) Urine Protein Trace H (Negative) Urine Glucose (UA) Negative (Negative) Urine Ketones Trace H (Negative) Ur Blood (Man) Negative (Negative) Urine Nitrate Negative (Negative) Urine Bilirubin Negative (Negative) Urine Urobilinogen 0.2 (0.2-1.0) mg/dL Leukocyte Esterase Rfl Negative (Negative) EVAN/UL Urine RBC 6-10 H (0-2) /hpf Calcium Oxalate Crystal Present H (None) /hpf Amorphous Sediment Moderate H (None) Urine Mucus Heavy H /lpf Urine Opiates Screen Negative (Negative) Urine Methadone Screen Negative (Negative) Ur Barbiturates Screen Negative (Negative) Ur Phencyclidine Scrn Negative (Negative) Ur Amphetamine Screen Negative (Negative) U Benzodiazepines Scrn Negative (Negative) Urine Cocaine Screen Positive A (Negative) U Cannabinoids Screen Positive A (Negative) 02/08/25 Range/Units 15:11 WBC (4.8-10.8) K/mm3 RBC (4.70-6.10) M/mm3 Hgb (12.4-15.3) g/dL Hct (37.0-46.0) % MCV (78.0-102.0) fL MCH (27.0-31.0) pg MCHC (32-36) g/dL RDW (11.6-14.4) % Plt Count (150-420) K/mm3 MPV (8.7-11.0) fl Immature Gran % (Auto) (0.0-0.0) % Neut % (Auto) (50.0-70.0) % Lymph % (Auto) (18.0-42.0) % Rawlins % (Auto) (2.0-11.0) % Eos % (Auto) (1.0-6.0) % Baso % (Auto) (0.0-1.0) % Lymph # (Auto) (1.10-4.50) K/mm3 Rawlins # (Auto) (0.10-0.90) K/mm3 Eos # (Auto) (0.02-0.50) K/mm3 Baso # (Auto) (0.00-0.10) K/mm3 Abs Immat Gran (auto) (0.00-0.00) K/mm3 Absolute Neuts (auto) (1.70-7.20) K/mm3 Absolute Nucleated RBC (0.00-0.00) K/mm3 Nucleated RBC % (0-0.0) % % Immature Plt Fraction (1.0-7.0) % PT (9.50-12.1) Seconds INR APTT (23.9-30.70) Sec Sodium (136-145) mmol/L Potassium (3.5-5.1) mmol/L Chloride (98-108) mmol/L Carbon Dioxide (21-32) mmol/L Anion Gap (4-12) mmol/L BUN (7-18) mg/dL Creatinine (0.70-1.30) mg/dL Estim Creat Clear Calc ml/min Estimated GFR (59 - ) Glucose (70-99) mg/dL POC Capillary Glucose 177 H (65-105) mg/dl Calculated Osmolality (285-295) mOsm/kg Calcium (8.5-10.1) mg/dL Total Bilirubin (0.00-1.00) mg/dL AST (15-37) U/L ALT (16-63) U/L Alkaline Phosphatase (46-116) U/L Troponin I (0.00-60.4) ng/L Total Protein (6.4-8.2) g/dL Albumin (3.4-5.0) g/dL Urine Color (Yellow) Urine Appearance (Clear) Urine pH (5.0-8.0) Ur Specific Gracey (1.010-1.020) Urine Protein (Negative) Urine Glucose (UA) (Negative) Urine Ketones (Negative) Ur Blood (Man) (Negative) Urine Nitrate (Negative) Urine Bilirubin (Negative) Urine Urobilinogen (0.2-1.0) mg/dL Leukocyte Esterase Rfl (Negative) EVAN/UL Urine RBC (0-2) /hpf Calcium Oxalate Crystal (None) /hpf Amorphous Sediment (None) Urine Mucus /lpf Urine Opiates Screen (Negative) Urine Methadone Screen (Negative) Ur Barbiturates Screen (Negative) Ur Phencyclidine Scrn (Negative) Ur Amphetamine Screen (Negative) U Benzodiazepines Scrn (Negative) Urine Cocaine Screen (Negative) U Cannabinoids Screen (Negative) Critical Care Time Critical Care Time Critical Care Time: No Discharge Plan Discharge Clinical Impression: Stroke Qualifiers: CVA mechanism: unspecified Qualified Code(s): I63.9 - Cerebral infarction, unspecified Patient Disposition: Acute Care Hospital Condition: Stable Patient Language: Kinyarwanda Prescriptions: No Action tamsulosin 0.4 mg capsule 0.4 mg PO DAILY Centrum Silver Ultra Men's [id number] mcg tablet 1 tablet PO DAILY Oil of Oregano w/ black seed oil capsule 6,000 mg .Route DAILY Rx Instructions: Patient takes 2 caps, PO daily Alive Calcium-Vitamin D3-K2 300 mg-25 mcg- 66 mg-37.5 mcg tablet 1 tablet PO DAILY Patient Comments: 10,000IU D3 + 200mg K2 azithromycin 250 mg tablet See Rx Instructions PO DAILY Qty: 6 0RF Rx Instructions: take 500 mg today by mouth - two tablets (day 1), then 250 mg (one tablet) by mouth for 4 days (days 2-5) orally daily; prednisone 20 mg tablet 40 mg PO DAILY 5 Days Qty: 10 0RF ferrous sulfate 325 mg (65 mg iron) tablet 325 mg PO DAILY 90 Days Qty: 90 1RF aspirin [Adult Low Dose Aspirin] 81 mg tablet,delayed release (DR/EC) 81 mg PO DAILY Qty: 30 0RF amoxicillin-pot clavulanate 875-125 mg tablet 1 tablet PO Q12H 5 Days Qty: 10 0RF Follow-up/Referrals: Bernabe Allen DO [Primary Care Provider] - Time of Disposition: 16:07
[2025-02-08] MEDS: SODIUM CHLORIDE 0.9% IV 1,000 ML 999 ML IV CONT (15:31)
[2025-02-08 15:33] LABS: Add Urine Microscopic? YES; Appearance Urine Clear (Clear); Bilirubin Urine Negative (Negative); Blood Urine Negative (Negative); Color Urine Yellow (Yellow); Glucose Urine UA Negative (Negative); Ketones Urine Trace (Negative); Leukocyte Esterase Ur Negative LEU/UL (Negative); Nitrate Urine Negative (Negative); Protein Urine Trace (Negative); Specific Grav Ur 1.015 (1.010-1.020); Urobilinogen Urine 0.2 mg/dL (0.2-1.0)
--- OUTSIDE RECORDS SUMMARY | 2025-02-08 15:34 | XMS_ITS | Clinical Summary ---
Author Organization [facility] Address [address] [place] [address] Care Team Providers Care System Technologist Name Role Phone En Ibrahim MD Primary Care Provider [phone] Source Comments [facility],non-owned Affiliates and Associated Physician Practices is amultiple site organization consisting of ambulatory clinics and hospital sitesin [place], [place], [place] and [place]. This disclosure is being madepursuant to the Care Everywhere program and may not contain all information available regarding this patient. Last updated 18.[facility] Allergies No known active allergies Medications * [...] age to complete this topic Care Teams System Technologist Relationship Specialty Start Date End Date En Ibrahim MD [address] [place] [phone] PCP - General 04/10/18
--- OUTSIDE RECORDS SUMMARY | 2025-02-08 15:34 | XMS_ITS | Encounter Summary ---
Author Organization [facility] Address [address] [place] [address] Care Team Providers Care Printer Small Print Shop Name Role Phone En Ibrahim MD Primary Care Provider [phone] Nick Barrientos MD Unavailable Encounter Details Date Type Department Care Team (Late st Contact Info) Description 04/27/2019 Abstract SFL CONVERSION [address] [place] [address] , Generic Conversion, Social History Tobacco Use Types Packs/Day Years Used Date Smoking Tobacco: Every Day Cigarettes 1 45 Smokeless Tobacco: Never Alcohol Use Standard Drinks/Week Comments Yes 0 (1 standard drink = 0.6 oz pur e alcohol) moderate Sex and Gender Information Value Date Recorded Sex Assigned at Male 01/13/2025 12:37 PM GLYCERIN OPERATOR Legal Sex Male 9:41 AM CDT Gender Identity Not on file Sexual Orientation Not on file Occupation Industry Job Start Date Job End Date retired Not on file Not on file Not on file documented as of this encounter Plan of Treatment Not on file documented as of this encounter Visit Diagnoses Not on filedocumented in this encounter Care Teams Printer Small Print Shop Relationship Specialty Start Date End Date En Ibrahim MD [address] [place] [address] PCP - General FAMILY PRACTICE 04/03/18 Nick Barrientos MD [address] [place] [address] Vascular/Marketing Technology Specialist INTERNAL MEDICINE 04/03/18 documented as of this encounter
--- OUTSIDE RECORDS SUMMARY | 2025-02-08 15:34 | XMS_ITS | Clinical Summary ---
Author Organization [facility] Address [address] [place] [address] Care Team Providers Care Platform Stapler Name Role Phone En Ibrahim MD Primary Care Provider [phone] Nick Barrientos MD Unavailable Allergies No known [...] Department Care Team Description 01/13/2025 12:41 PM SPECIAL EDUCATION PARAPROFESSIONAL - 01/13/2025 11:59 PM [facility] Hospital Encounter [facility] [address] [place] [address] En Ibrahim MD Discharge Disposition: Home or [...] Sex Assigned at Male 01/13/2025 12:37 PM SPECIAL EDUCATION PARAPROFESSIONAL Legal Sex Male 9:41 AM CDT Gender [...] Comments CTA NECK Routine 01/13/2025 1:27 PM SPECIAL EDUCATION PARAPROFESSIONAL Carotid stenosis CT LUNG SCREENING Routine 01/13/2025 1:0 2 PM SPECIAL EDUCATION PARAPROFESSIONAL Screening for lung cancer Personal history of tobacco use, presenting hazards to health HEPATITIS C ANTIBODY Routine 04/15/2020 12:37 PM CDT Need for hepatitis C screening test from Last 3 Months or Most Recently Relevant to Health Maintenance Results * CTA NECK (01/13/2025 1:27 PM SPECIAL EDUCATION PARAPROFESSIONAL) Anatomical Region Laterality Modality Neck Computed Tomogra phy 01/14/2025 7:56 AM SPECIAL EDUCATION PARAPROFESSIONAL Addenda Addendum by Nick Shaffer MD on 01/14/2025 9:56 AM SPECIAL EDUCATION PARAPROFESSIONAL [address] [place] [address] Axial, sagittal and coronal MIPS were constructed. Referred By: EN IBRAHIM Interpreted By: Nick Shaffer MD, 01/14/2025 9:55 AM Impressions 01/14/2025 8:05 AM SPECIAL EDUCATION PARAPROFESSIONAL IMPRESSION: 1. 2.3 cm long segment of [...] 01/14/2025 7:56 AM Narrative 01/14/2025 8:05 AM SPECIAL EDUCATION PARAPROFESSIONAL [address] [place] [address] EXAMINATION:CT angiogram of the neck with contrast [...] Procedure Note Nick Shaffer MD - 01/14/2025 [facility] [address] [facility] [place] [address] EXAMINATION:CT angiogram of the neck with contrast [...] * CT LUNG SCREENING (01/13/2025 1:02 PM SPECIAL EDUCATION PARAPROFESSIONAL) Anatomical Region Laterality Modality Chest Computed Tomogra phy 01/15/2025 2:28 PM SPECIAL EDUCATION PARAPROFESSIONAL Narrative 01/15/2025 3:20 PM SPECIAL EDUCATION PARAPROFESSIONAL [address] [place] [address] EXAM: LUNG SCREENING LOW-DOSE CT THORAX WITHOUT [...] December 2025. Thank you for choosing the [facility] Lung Screening Program. The attending radiologist has reviewed the image(s) and agrees with the content of this report. Ordered By: EN IBRAHIM Interpreted By: Brooks Eagle MD, 01/15/2025 2:28 PM Procedure Note Lonnie Brady MD - 01/15/[address] [place] [address] EXAM: LUNG SCREENING LOW-DOSE CT THORAX WITHOUT [...] December 2025. Thank you for choosing the [facility]. The attending radiologist has reviewed the image(s) and agrees with thecontent of this report. Ordered By: EN IBRAHIM Interpreted By: Brooks Eagle MD, 01/15/2025 2:28 PM us En Ibrahim MD CT Final Result * HEPATITIS C ANTIBODY (04/15/2020 12:37 PM CDT) HEPATITIS C AB NON-REACTI VE NON-REACT TELMA 04/16/2020 7:04 PM CDT [facility] Comment: ANTIBODIES TO HCV NOT DETECTED. DOES NOT EXCLUDE THE POSSIBILITY OF EXPOSURE TO HCV. 04/15/2020 12:3 7 PM CDT us En Ibrahim MD LABORATORY Final Result [facility] [address] [place] [address], [place] [phone] [id number] from Last 3 Months or Most Recently Relevant to Health Maintenance Insurance MEDICARE [facility] Care Teams Platform Stapler Relationship Specialty Start Date End Date En Ibrahim MD [address] [place] [phone] PCP - General FAMILY PRACTICE 04/03/18 Nick Barrientos MD [address] [place] [address] [phone] Vascular/Qc Chemist INTERNAL MEDICINE 04/03/18
--- OUTSIDE RECORDS SUMMARY | 2025-02-08 15:34 | XMS_ITS | Clinical Summary ---
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 Pulse 81 12/11/2019 1:11 PM PRINTED CIRCUIT BOARD ASSEMBLY REPAIRER Temperature 36.5 C (97.7 F) 12/11/2019 1:11 PM PRINTED CIRCUIT BOARD ASSEMBLY REPAIRER Respiratory Rate 20 12/11/2019 1:11 PM PRINTED CIRCUIT BOARD ASSEMBLY REPAIRER Oxygen Saturation 97% 12/11/2019 1:11 PM PRINTED CIRCUIT BOARD ASSEMBLY REPAIRER Inhaled Oxygen Concentration - - Weight 72.4 kg (159 lb 9.6 oz) 12/11/2019 1:11 P M PR[employer]ED [employer] BOARD ASSEMBLY REPAIRER Height 182.9 cm (6') 12/11/2019 1:11 PM PRINTED [employer] BOARD ASSEMBLY REPAIRER Body Mass Index 21.65 12/11/2019 1:11 PM PRINTED [employer] BOARD ASSEMBLY REPAIRER Plan of Treatment Health Maintenance Due Date [...] Comments PSA DIAGNOSTIC,TOTAL Routine 12/11/2019 2:09 PM PRINTED [employer] BOARD ASSEMBLY REPAIRER BPH with obstruction/lower urinary tract symptoms from Last 3 Months or Most Recently Relevant to Health Maintenance Results * PSA DIAGNOSTIC,TOTAL (12/11/2019 2:09 PM PRINTED CIRCUIT BOARD ASSEMBLY REPAIRER) PSA, TOTAL (PROSTATIC SPECIFIC ANTIGEN) 2.32 <=4.00 ng/mL 12/11/2019 4:42 PM PRINTED CIRCUIT BOARD ASSEMBLY REPAIRER [facility] Blood specimen (specimen) Venipuncture / Unknown 12/11/2019 2:09 PM PRINTED CIRCUIT BOARD ASSEMBLY REPAIRER 12/11/2019 3:46 PM PRINTED CIRCUIT BOARD ASSEMBLY REPAIRER Narrative [facility] - 12/11/2019 4:42 PM PRINTED [employer] BOARD ASSEMBLY REPAIRER PSA NOTE: The PSA value should be used in conjunction with information available from clinical evaluation and other diagnostic procedures. us Teresa Aguilar MD CHEMISTRY ORDERABLES Final Result [facility] [address] [place] [address] from Last 3 Months or Most Recently Relevant to Health Maintenance Insurance MEDICARE Care Teams Um Rn Relationship Specialty Start Date End Date En Ibrahim MD [address] [address] PCP - General Family Medicine 03/22/18
[2025-02-08 15:38] LABS: Amphetamine Screen Urine Negative (Negative); Barbiturate Screen Urine Negative (Negative); Benzodiazepines Screen Urine Negative (Negative); Cannabinoid Screen Urine Positive (Negative); Cocaine Screen Urine Positive (Negative); Methadone Screen Urine Negative (Negative); Opiate Screen Urine Negative (Negative); Phencyclidine Screen Urine Negative (Negative)
[2025-02-08 15:39] LABS: Calcium Oxalate Crystals Urine Present /hpf
[2025-02-08 15:40] LABS: Amorphous Sediment Urine Moderate; Mucus Urine Heavy /lpf
[2025-02-08] MEDS: TENECTEPLASE 50 MG/10 ML VIAL 15.9 MG IV PUSH (16:03)
--- NOTE | 2025-02-08 16:15 | PC.NURSE ---
nasal cannula applied 2 liters
== END 2025-02-08 16:35 | disposition short-term general hospital (02) ==
PROVIDERS: Emergency Provider Emergency Medicine; PCP Family Medicine
DX: I63.9 Cerebral infarction, unspecified (principal); I25.10 Atherosclerotic heart disease of native coronary artery without angina pectoris; F17.210 Nicotine dependence, cigarettes, uncomplicated; Z79.899 Other long term (current) drug therapy
CPT/HCPCS: 36415; 70450; 70496; 70498; 80053; 80307; 81001; 82948; 84484; 85025; 85055; 85610; 85730; 93005; 96361; 96374; 99285; J3101; J7030; Q9967

== ENCOUNTER 2025-02-28 10:11 | Outpatient (CLI) | payer MEDICARE, SELFPAY ==
[2025-02-28 10:24] LABS: Basophils Absolute Auto 0.06 K/mm3 (0.00-0.10); Basophils Percent Auto 0.9 % (0.0-1.0); Eosinophils Absolute Auto 0.57 K/mm3 (0.02-0.50); Eosinophils Percent Auto 8.8 % (1.0-6.0); Hemoglobin 12.5 g/dL (12.4-15.3); Immature Granulocyte Absolute 0.01 K/mm3 (0.00-0.00); Immature Granulocyte Percent A 0.2 % (0.0-0.0); Lymphocytes Absolute Auto 1.84 K/mm3 (1.10-4.50); Lymphocytes Percent Auto 28.4 % (18.0-42.0); Mean Corpuscular HGB Conc 32.1 g/dL (32-36); Mean Corpuscular Hemoglobin 30.9 pg (27.0-31.0); Mean Corpuscular Volume 96.5 fL (78.0-102.0); Mean Platelet Volume 8.6 fl (8.7-11.0); Monocytes Absolute Auto 0.64 K/mm3 (0.10-0.90); Monocytes Percent Auto 9.9 % (2.0-11.0); Neutrophils Absolute Auto 3.37 K/mm3 (1.70-7.20); Neutrophils Percent Auto 51.8 % (50.0-70.0); Platelet Count Result 297 K/mm3 (150-420); Red Blood Count 4.04 M/mm3 (4.70-6.10); Red Cell Distribution Width 12.7 % (11.6-14.4); White Blood Count 6.5 K/mm3 (4.8-10.8)
--- OUTSIDE RECORDS SUMMARY | 2025-02-28 10:46 | XMS_ITS | Clinical Summary ---
Author Organization [facility] Address [address] [place] [address] Care Team Providers Care Ride Attendant Name Role Phone AdamshaneJaclyn katehans McgrawAngel Primary Care Provider Allergies No known active allergies Medications aspirin 325 mg tablet Take 1 tablet (325 mg total) by mouth daily 5 02/13/20 26 Active atorvastatin (LIPITOR) 80 mg tabletIndicatio ns:Secondary Stroke Prevention Take 1 tablet (80 mg total) by mouth daily 5 02/13/20 26 Active nicotine (NICODERM CQ) 7 mgIndications:N icotine Dependence Place 1 patch on the skin daily for 24 hours 5 03/14/20 25 Active Additional Information Patient not taking.Reported on 02/27/2025 tamsulosin (FLOMAX) 0.4 mg extended release capsule Take 1 capsule (0.4 mg total) by mouth daily with dinner 5 Active amoxicillin-cla vulanate (AUGMENTIN) 875-125 mg per tablet TAKE 1 TABLET BY MOUTH EVERY 12 HOURS FOR 5 DAYS 5 Active azithromycin (ZITHROMAX) 250 mg tablet TAKE 2 TABLETS BY MOUTH TODAY, THEN TAKE 1 TABLET DAILY FOR 4 DAYS DIRECTED 5 Active dexAMETHasone (DECADRON) 1 mg tablet 1 (ONE) TABLET BY MOUTH ONE TIME DOSE, TAKE AT 11:00PM 5 Active ferrous sulfate 325 mg (65 mg of elemental iron) tablet TAKE 1 TABLET BY MOUTH EVERY DAY FOR 90 DAYS 5 Active hydroCHLOROthia zide (MICROZIDE) 12.5 mg capsule Take 1 capsule (12.5 mg total) by mouth every morning 1 Active pravastatin (PRAVACHOL) 10 mg tablet Take by mouth 8 Active predniSONE (DELTASONE) 20 mg tablet TAKE 2 TABLETS BY MOUTH DAILY FOR 5 DAYS 5 Active Active Problems Problem Noted Date Diagnosed Date Acute ischemic right MCA stroke 02/08/2025 Nasolacrimal duct obstruction, acquired, right 0 05/01/2018 Bilateral carotid artery disease 04/24/2018 Hyperlipidemia 04/24/2018 Smoker 04/24/2018 Encounters Date Type Department Care Team Description 02/27/2025 12:30 PM CDT Office Visit [facility] Neurosurgery [address] [place] [address] [place] [id number] Dylon Lowery MD Internal carotid artery stenosis, left 02/27/2025 Telephone [facility] Neurosurgery [address] [facility] [address]th [place] [address] [place] [id number] Dylon Lowery MD 02/12/2025 Telephone [facility] Scheduling [address] [place] [address] Megha Dela Cruz 02/10/2025 1:20 PM CDT - 02/10/2025 11:59 PM CDT Hospital Encounter [facility] Radiology [address] [place] [address] Discharge Disposition: Discharge to home or self care 02/10/2025 8:25 AM CDT Ancillary Procedure [facility] Vascular Lab IP [address] [facility] [address] [place] [address] 02/08/2025 5:17 PM CDT - 02/11/2025 5:58 PM CDT Hospital Encounter [facility] [address] [place] [address] Jagdeep Roque MD Internal carotid artery stenosis, left (Primary Dx); Acute ischemic right MCA stroke (HCC) Discharge Disposition: Discharge to an IP Rehab facility from Last 3 Months Immunizations Immunization Administration Dates Next Due Pneumococcal Polysaccharide PPV23 04/03/2019 Tdap 10/14/2020 ZOSTER Recombinant 10/14/2020 Social History Tobacco Use Types Packs/Day Years Used Date Smoking Tobacco: Every Day Cigarettes Tobacco Cessation:Ready to Q uit: Not Asked; Counseling Given: Not Answered PHQ-2 Answer Date Recorded PHQ-2 Total Score (If total score is 3 or more points, staff should administer the PHQ-9) 0 02/11/2025 Personal Safety Answer Date Recorded Have you ever been in or are you currently in a harmful physical or emotional relationship or is someone making you feel afraid or unsafe? Denies 02/08/2025 Sex and Gender Information Value Date Recorded Sex Assigned at Not on file Legal Sex Male 3:21 PM CDT Gender Identity Not on file Sexual Orientation Not on file Obstetrics History Last Filed Vital Signs Vital Sign Reading Time Taken Comments Blood Pressure 112/62 02/27/2025 12:25 PM CDT Pulse 76 02/27/2025 12:25 PM CDT Temperature 36.6 C (97.9 F) 02/11/2025 5:45 PM CDT Respiratory Rate 20 02/11/2025 10:00 AM CDT Oxygen Saturation 97% 02/11/2025 5:45 PM CDT Inhaled Oxygen Concentration - - Weight 63 kg (138 lb 12.8 oz) 02/27/2025 12:25 P M CDT Height 170.2 cm (5' 7 ) 02/27/2025 12:25 PM CDT Body Mass Index 21.74 02/27/2025 12:25 PM CDT Plan of Treatment Health Maintenance Due Date Last Done Comments Colon Cancer Screening-Colonoscopy 1955 Hepatitis C Screening 1955 Hepatitis B Screening 1971 Well Visit 65+ 2018 Pneumococcal vaccine 65+ (2 of 2 - PCV) 04/03/2020 0 04/03/2019 Zoster Vaccine (2 of 2) 12/09/2020 10/14/2020 Influenza Vaccine (Season Ended) 2025 Depression Screening 02/08/2026 02/08/2025 Fall Risk Assessment 02/11/2026 02/11/2025 DTaP/Tdap/Td Vaccine (2 - Td or Tdap) 10/14/2030 Abdominal Aortic Aneurysm (AAA) Screen Completed Procedures Procedure Name Priority Date/Time Associated Diagnosis Comments NEURO CT OUTSIDE REFERENCE Routine 02/11/2025 11:[address] OUTSIDE REFERENCE Routine 02/11/2025 10:59 AM CDT EGFR Routine 02/10/2025 7:32 PM CDT BASIC METABOLIC PANEL Routine 02/10/2025 7:32 PM CDT CBC WITHOUT DIFFERENTIAL Routine 02/10/2025 7:32 PM CDT TRANSTHORACIC ECHO (TTE) COMPLETE W DOPPLER/CF W CONTRAST W BUBBLE ED Urgent/IP Urgent 02/10/2025 5:32 PM CDT FL MODIFIED BARIUM SWALLOW W VIDEO IP Routine 02/10/2025 1:29 PM CDT US CAROTIDS DUPLEX BILATERAL Pending Discharge 02/10/2025 12:17 PM CDT EGFR Routine 02/09/2025 7:38 PM CDT BASIC METABOLIC PANEL Routine 02/09/2025 7:38 PM CDT CBC WITHOUT DIFFERENTIAL Routine 02/09/2025 7:[address] HEAD WO CONTRAST Timed 02/09/2025 5 :16 PM CDT TROPONIN I HIGH-SENSITIVITY SERIES (BASELINE, 2HR, 4HR, 6HR) Routine 02/08/2025 11:23 PM CDT URINALYSIS AND REFLEX TO MICROSCOPIC AND CULTURE STAT 02/08/2025 10:19 PM CDT COCAINE METABOLITE, URINE, CONFIRMATION Routine 02/08/2025 10:15 PM CDT DRUGS OF ABUSE SCREEN, URINE WITH REFLEX CONFIRMATION Routine 02/08/2025 10:15 PM CDT XR CHEST 1 VIEW ED Urgent/IP Urgent 02/08/2025 7:29 PM CDT EGFR Routine 02/08/2025 6:34 PM CDT BASIC METABOLIC PANEL Routine 02/08/2025 6:34 PM CDT CBC WITHOUT DIFFERENTIAL Routine 02/08/2025 6:34 PM CDT LIPID PANEL Routine 02/08/2025 6:34 PM CDT HEMOGLOBIN A1C Routine 02/08/2025 6:34 PM CDT TROPONIN I HIGH-SENSITIVITY STAT 02/08/2025 6:34 PM CDT from Last 3 Months Results * Neuro CT Outside Reference (02/11/2025 11:00 AM CDT) Impressions [facility] - 02/11/2025 11:00 AM CDT These images are for Reference purposes only and have not been reviewed by [facility] Radiology. There will be no report generated by a [facility] Radiologist. Narrative [facility] - 02/11/2025 11:00 AM CDT EXAMINATION: Images For Reference Purposes Only us Sp Rendon MD IMG CT PROCEDURES Final R esult [facility] * Neuro CT Outside Reference (02/11/2025 10:59 AM CDT) Impressions [facility] - 02/11/2025 10:59 AM CDT These images are for Reference purposes only and have not been reviewed by [facility]. There will be no report generated by a [facility] Radiologist. Narrative [facility] - 02/11/2025 10:59 AM CDT EXAMINATION: Images For Reference Purposes Only us Sp Rendon MD IMG CT PROCEDURES Final R esult Performing Organization Address City/[facility]/ZIP Co de Phone Number [facility] * eGFR (02/10/2025 7:32 PM CDT) eGFR >90 >=60 mL/min/1. 73 m2 Comment: Interpretive Data Reference Interval Normal >/= 90 mL/min/1.73m2 Mildly decreased* 60 - 89 mL/min/1.73m2 Mildly to moderately decreased 45 - 59 mL/min/1.73m2 Moderately to severely decreased 30 - 44 mL/min/1.73m2 Severely decreased 15 - 29 mL/min/1.73m2 Kidney Failure < 15 mL/min/1.73m2 *Relative to young adult level Estimated glomerular filtration rate is determined by the 2020 CKD-EPI equation recommended by the National Kidney [employer] (A Unifying Approach to GFR Estimation: Recommendations of the NKF-ASK Task Force on Reassessing the Inclusion of Race in Diagnosing Kidney Disease, JASN 2020). The CKD-EPI equation should not be used for patients with unstable renal function and has not been validated in children and those over 70. Current interpretive data was last reviewed 2021. Blood 02/10/2025 7:32 PM CDT 02/10/2025 8:33 PM CDT us Jagdeep Roque MD LAB BLOOD ORDERABLES Final Result Performing Organization Address City/[facility]/ZIP Co de Phone Number [facility] [address] [facility] Department [place] [address] * (ABNORMAL) CBC without differential (02/10/2025 7:32 PM CDT) WBC 10.9(H) 3.8 - 9.9 K/cumm Hgb 11.5(L) 13.0 - 17.5 g/dL [facility] Hct 34.7(L) 38.9 - 50.3 % [facility] Plt 235 150 - 400 K/cumm [facility] MPV 11.3 9.1 - 12.3 fL [facility] RBC 3.71(L) 4.30 - 5.80 M/cumm [facility] MCV 93.5 81.3 - 96.4 fL [facility] MCH 31.0 27.1 - 33.3 pg [facility] MCHC 33.1 32.3 - 35.7 g/dL [facility] RDW CV 12.3 11.1 - 14.9 % [facility] RDW SD 42.5 35.7 - 48.1 fL [facility] NRBC abs 0.00 0.00 - 0.01 K/cumm [facility] Blood 02/10/2025 7:32 PM CDT 02/10/2025 8:33 PM CDT us Jagdeep Roque MD LAB BLOOD ORDERABLES Final Result [facility] [address] [facility] Department [place] [address] * (ABNORMAL) Basic metabolic panel (02/10/2025 7:32 PM CDT) Sodium 142 135 - 145 mmol/L Potassium, pl 3.5 3.3 - 4.9 mmol/L [facility] Chloride 106 97 - 110 mmol/L [facility] CO2 27 22 - 32 mmol/L [facility] Anion gap 9 2 - 15 mmol/L [facility] BUN 7 6 - 25 mg/dL [facility] Creatinine 0.71(L) 0.80 - 1.30 mg/dL [facility] Glucose 219(H) 70 - 199 mg/dL [facility] Comment: Interpretive Data Fasting glucose >/= 126 mg/dl is diagnostic for diabetes. Fasting is defined as no caloric intake for at least 8 hours. Fasting glucose between 100 mg/dl to 125 mg/dl is diagnostic of prediabetes. In a patient with classic symptoms of hyperglycemia or hyperglycemic crisis, a random glucose >/= 200 mg/dl is diagnostic for diabetes. In the absence of unequivocal hyperglycemia, results should be confirmed by repeat testing. The classification and Diagnosis of Diabetes Diabetes Care 2021; 46: S19-S40. Current interpretive data was last revised 2022. Calcium 8.4(L) 8.5 - 10.3 mg/dL [facility] Blood 02/10/2025 7:32 PM CDT 02/10/2025 8:33 PM CDT us Jagdeep Roque MD LAB BLOOD ORDERABLES Final Result [facility] [address] [facility] Department [place] [address] * TRANSTHORACIC ECHO (TTE) COMPLETE W DOPPLER/CF W CONTRAST W BUBBLE (02/10/2025 5:32 PM CDT) Anatomical Region Laterality Modality Ultrasound 02/10/2025 4:39 PM CDT Narrative 02/10/2025 5:54 PM CDT [facility] [place] [place] [address] Transthoracic Echocardiographic Report Patient Name: CHARLES FERRIS : 1955 (69y 7m) Gender: M Study Date: 02/10/2025 04:39:30 PM Ht(Inch): 67 Wt(Lb): 151.9 BSA: 1.8 Receiving Tank Operator: Bob Morin RDCS Location: [id number] Order Provider: JAGDEEP ROQUE Heart Rate: 72 BMI: 23.79 BP: 139 / 83 Ref Provider: JAGDEEP ROQUE PROCEDURES: Echocardiographic Report: Transthoracic complete echo with strain imaging and contrast, 2D, spectral and tissue Doppler, color flow Doppler, M-mode. Additional Procedures: Agitated saline bubble study. Contrast: Contrast Enhancement was Employed: After initial imaging due to sub- optimal quality related to co-morbidity defined by patient's body habitus and due to suboptimal image quality with inadequate visualization of at least 2 of 16 LV wall segments in any view after initial imaging. Perflutren contrast was administered using the volume necessary to obtain adequate images. 1.1 ml Optison Administered, (1.9 ml wasted) & NS Bubble Study. INDICATIONS: stroke follow-up - CONCLUSIONS: 1. Normal left ventricular size with mild concentric LV remodeling. Normal left ventricular systolic function, LVEF 68 %. Normal diastolic function. Normal global longitudinal strain. 2. Normal right ventricular size and systolic function. Normal RV strain. 3. The Estimated RVSP is : 25.0 mmHg. 4. Normal aorta, LA, RA and IVC. 5. Mild TR and FL. Trace MR. Est. PASP ~ 25 mm Hg. 6. No pericardial effusion. 7. No thrombus or vegetations seen. No PFO detected by color Doppler. Bubble study negative for intracardiac shunt without and with Valsalva. COMPARISONS: No previous study available for comparison. ATTESTATION: I have personally reviewed and interpreted this study without fellow or resident. DISCLAIMER: The study images and the final report will be retained in the patient chart by the Echo Laboratory for the legally required time period. This chart constitutes the legal record of any testing performed. FINDINGS: Left Ventricle: Normal left ventricular size based on volume index. Concentric LV remodeling. Normal left ventricular systolic function. The Ejection Fraction (Escobar's) is measured at 68 %. Normal diastolic function. The average global longitudinal strain is normal. The LV global strain is: -21.1 %. Right Ventricle: Normal right ventricular size. Normal right ventricular systolic function. The right ventricular strain is more negative than -17%. Left Atrium: The left atrium is normal in size. Right Atrium: The right atrium is normal in size. Atrial Septum: Agitated saline bubble study is negative for intracardiac shunt at rest and post-Valsalva. Mitral Valve: Normal mitral valve structure. Trace mitral regurgitation. No stenosis present. Aortic Valve: Normal trileaflet aortic valve. No aortic regurgitation. No aortic valve stenosis. The mean transaortic gradient is 3 mmHg. The aortic valve area by the continuity equation (using VTI) is 3.68 cm2. Aortic valve dimensionless index is 1.14. Tricuspid Valve: Normal tricuspid valve structure. Mild tricuspid regurgitation. The Estimated RVSP is : 25.0 mmHg. No tricuspid valve stenosis. Pulmonic Valve: Normal pulmonic valve structure. Mild pulmonic regurgitation. No pulmonic valve stenosis present. Pericardium: Normal pericardium without pericardial effusion. Aorta: Normal aortic root size. IVC: IVC is normal in size. The IVC was <2.1 cm and collapsibility >50%. (est. RA pressure 0-5 mmHg). Rhythm: Normal Sinus rhythm was seen during the study. MEASUREMENTS: 2D/MM Value Range Doppler Value Range LVIDd 2D 4.01 cm [ 4.20 - 5.80 ] AV Peak Jewel 1.1 m/s [ 1.0 - 1.7 ] LVIDs 2D 2.31 cm [ 2.50 - 4.00 ] AV Peak PG 4.84 mmHg IVSd 2D 1.29 cm [ 0.60 - 1.00 ] AV Mean PG 3 mmHg LVPWd 2D 1.08 cm [ 0.60 - 1.00 ] AV VTI 24.1 cm LV Thickness Ratio 1.2 LVOT Peak Jewel 1.1 m/s [ 0.7 - 1.1 ] LV FS 2D 42.51 % [ 25.00 - 43.00 ] LVOT Peak PG 4.84 mmHg LV Mass 2D 165.08 g LVOT Mean PG 3 mmHg LV Mass Index 2D 91.71 g/m2 LVOT VTI 27.4 cm RWT 0.54 LVOT Diam 2.03 cm EDV Mod BP 102.52 ml [ 62.00 - 150.00 ] SARA VTI 3.68 cm2 LV EDV Index 56.96 ml/m2 LVOT/AV VTI 1.14 - Dimensionless index (DVI) ESV Mod BP 33.06 ml [ 21.00 - 61.00 ] MV E Peak Jewel 0.9 m/s [ 0.6 - 1.3 ] EF Mod BP 68 % [ 52 - 72 ] MV A Peak Jewel 0.4 m/s [ 1.0 - 1.2 ] LV GLS -21.1 % [ -25.0 - -18.0 ] MV E/A 2.3 ratio [ 0.8 - 1.5 ] LA Length 4C 4.23 cm MV Decel Time 219.54 msec [ 104.00 - 258.00 ] LA Length 2C 5.40 cm Med E` Jewel 8.4 cm/sec [ 8.0 - 25.0 ] LA Volume BP 30.95 ml Lat E` Jewel 10.5 cm/sec [ 10.0 - 25.0 ] LA Volume Index 17.19 ml/m2 [ 16.00 - 34.00 ] Average E/E` 9.52 RV Base Dimen 2D 3.5 cm [ 2.5 - 4.2 ] RV S` 15.85 cm/sec TAPSE 1.94 cm [ 1.71 - 5.00 ] TR Peak Jewel 2.3 m/s [ 1.0 - 2.8 ] RA Volume 22.32 ml TR Peak PG 21.2 mmHg RA Volume Index 12.40 ml/m2 PV Peak Jewel 0.9 m/s [ 0.4 - 0.8 ] AoR Diam 2D 3.18 cm [ 3.10 - 3.70 ] PV Peak PG 3.24 mmHg Ao Root Index 1.77 cm/m2 [ 1.00 - 2.00 ] Asc Ao Diam 2D 3.10 cm Asc Ao Index 1.72 cm/m2 Electronically Signed By: Adam Sanchez MD 02/10/2025 5:53:44 PM CDT Procedure Note Adam Sanchez MD - 02/10/2025 [facility] [place] [address] Transthoracic Echocardiographic Report Patient Name: CHARLES FERRIS : 1955 (69y 7m) Gender: M Study Date: 02/10/2025 04:39:30 PM Ht(Inch): 67 Wt(Lb): 151.9 BSA: 1.8 Receiving Tank Operator: Bob Morin [facility] Location: [id number] Order Provider:JAGDEEP ROQUE Heart Rate: 72 BMI: 23.79 BP: 139 / 83 Ref Provider: JAGDEEP ROQUE PROCEDURES: Echocardiographic Report: Transthoracic complete echo with strain imagingand contrast, 2D, spectral and tissue Doppler, color flow Doppler, M-mode. Additional Procedures: Agitated saline bubble study. Contrast: Contrast Enhancement was Employed: After initial imaging due tosub- optimal quality related to co-morbidity defined by patient's body habitus and dueto suboptimal image quality with inadequate visualization of at least 2 of 16 LV wallsegments in any view after initial imaging. Perflutren contrast was administered using thevolume necessary to obtain adequate images. 1.1 ml Optison Administered, (1.9 mlwasted) & NS Bubble Study. INDICATIONS: stroke follow-up - CONCLUSIONS: 1. Normal left ventricular size with mild concentric LV remodeling. Normalleft ventricular systolic function, LVEF 68 %. Normal diastolic function.Normal global longitudinal strain. 2. Normal right ventricular size and systolic function. Normal RVstrain. 3. The Estimated RVSP is : 25.0 mmHg. 4. Normal aorta, LA, RA and IVC. 5. Mild TR and FL. Trace MR. Est. PASP ~ 25 mm Hg. 6. No pericardial effusion. 7. No thrombus or vegetations seen. No PFO detected by color Doppler.Bubble study negative for intracardiac shunt without and with Valsalva. COMPARISONS: No previous study available for comparison. ATTESTATION: I have personally reviewed and interpreted this study without fellow orresident. DISCLAIMER: The study images and the final report will be retained in the patientchart by the Echo Laboratory for the legally required time period. This chart constitutesthe legal record of any testing performed. FINDINGS: Left Ventricle: Normal left ventricular size based on volume index.Concentric LV remodeling. Normal left ventricular systolic function. The EjectionFraction (Escobar's) is measured at 68 %. Normal diastolic function. The average globallongitudinal strain is normal. The LV global strain is: -21.1 %. Right Ventricle: Normal right ventricular size. Normal right ventricularsystolic function. The right ventricular strain is more negative than -17%. Left Atrium: The left atrium is normal in size. Right Atrium: The right atrium is normal in size. Atrial Septum: Agitated saline bubble study is negative for intracardiacshunt at rest and post-Valsalva. Mitral Valve: Normal mitral valve structure. Trace mitral regurgitation.No stenosis present. Aortic Valve: Normal trileaflet aortic valve. No aortic regurgitation. Noaortic valve stenosis. The mean transaortic gradient is 3 mmHg. The aortic valve areaby the continuity equation (using VTI) is 3.68 cm2. Aortic valve dimensionlessindex is 1.14. Tricuspid Valve: Normal tricuspid valve structure. Mild tricuspidregurgitation. The Estimated RVSP is : 25.0 mmHg. No tricuspid valve stenosis. Pulmonic Valve: Normal pulmonic valve structure. Mild pulmonicregurgitation. No pulmonic valve stenosis present. Pericardium: Normal pericardium without pericardial effusion. Aorta: Normal aortic root size. IVC: IVC is normal in size. The IVC was <2.1 cm and collapsibility >50%.(est. RA pressure 0-5 mmHg). Rhythm: Normal Sinus rhythm was seen during the study. MEASUREMENTS: 2D/MM Value Range DopplerValue Range LVIDd 2D 4.01 cm [ 4.20 - 5.80 ] AV Peak Vel1.1 m/s [ 1.0 - 1.7 ] LVIDs 2D 2.31 cm [ 2.50 - 4.00 ] AV Peak PG4.84 mmHg IVSd 2D 1.29 cm [ 0.60 - 1.00 ] AV Mean PG3 mmHg LVPWd 2D 1.08 cm [ 0.60 - 1.00 ] AV VTI24.1 cm LV Thickness Ratio 1.2 LVOT Peak Vel1.1 m/s [ 0.7 - 1.1 ] LV FS 2D 42.51 % [ 25.00 - 43.00 ] LVOT Peak PG4.84 mmHg LV Mass 2D 165.08 g LVOT Mean PG3 mmHg LV Mass Index 2D 91.71 g/m2 LVOT VTI27.4 cm RWT 0.54 LVOT Diam2.03 cm EDV Mod BP 102.52 ml [ 62.00 - 150.00 ] SARA VTI3.68 cm2 LV EDV Index 56.96 ml/m2 LVOT/AV VTI1.14 - Dimensionless index (DVI) ESV Mod BP 33.06 ml [ 21.00 - 61.00 ] MV E Peak Vel0.9 m/s [ 0.6 - 1.3 ] EF Mod BP 68 % [ 52 - 72 ] MV A Peak Vel0.4 m/s [ 1.0 - 1.2 ] LV GLS -21.1 % [ -25.0 - -18.0 ] MV E/A2.3 ratio [ 0.8 - 1.5 ] LA Length 4C 4.23 cm MV Decel Nwss668.54 msec [ 104.00 - 258.00 ] LA Length 2C 5.40 cm Med E` Vel8.4 cm/sec [ 8.0 - 25.0 ] LA Volume BP 30.95 ml Lat E` Vel10.5 cm/sec [ 10.0 - 25.0 ] LA Volume Index 17.19 ml/m2 [ 16.00 - 34.00 ] Average E/E`9.52 RV Base Dimen 2D 3.5 cm [ 2.5 - 4.2 ] RV S`15.85 cm/sec TAPSE 1.94 cm [ 1.71 - 5.00 ] TR Peak Vel2.3 m/s [ 1.0 - 2.8 ] RA Volume 22.32 ml TR Peak PG21.2 mmHg RA Volume Index 12.40 ml/m2 PV Peak Vel0.9 m/s [ 0.4 - 0.8 ] AoR Diam 2D 3.18 cm [ 3.10 - 3.70 ] PV Peak PG3.24 mmHg Ao Root Index 1.77 cm/m2 [ 1.00 - 2.00 ] Asc Ao Diam 2D3.10 cm Asc Ao Index1.72 cm/m2 Electronically Signed By: Adam Sanchez MD 02/10/2025 5:53:44 PM CDT us Jagdeep Roque MD CV ECHO PROCEDURES Final R esult * FL Modified Barium Swallow W Video (02/10/2025 1:29 PM CDT) Anatomical Region Laterality Modality Head and Neck N/A Computed Radiogr aphy 02/10/2025 2:27 PM CDT Impressions 02/10/2025 2:30 PM CDT The swallowing mechanism is abnormal; see above comments. Please refer to the Speech Pathology procedure note for safe swallow recommendations as well as additional information regarding the oral-pharyngeal swallow function, plan of care, and recommended follow up. Dictated by: Camilo Frey M.D. The radiology attending physician has personally reviewed this study, and had reviewed and/or edited this written report and agrees with it. Electronically signed by: Taryn Thompson M.D. Narrative 02/10/2025 2:30 PM CDT EXAMINATION: MODIFIED BARIUM SWALLOW HISTORY: Dysphagia. TECHNIQUE: This procedure was completed in conjunction with a Speech Language Pathologist. The patient was given barium of multiple different consistencies to swallow. Video fluoroscopy was employed during the exam. FINDINGS: Oral-pharyngeal swallow function is mildly impaired. Penetration: Yes There is penetration of thin liquids, nectar thick liquids. Penetration is not sensed. The penetrated material is cleared. Aspiration: Yes There is aspiration of thin liquid. Aspiration is not sensed. The aspirated material is not cleared. Residue:Yes There is oral-pharyngeal residue of thin liquids, purees, solids. Residue is not sensed. The residual material is cleared. Other comments: None Procedure Note Taryn Thompson MD - 02/10/2025 EXAMINATION: MODIFIED BARIUM SWALLOW HISTORY: Dysphagia. TECHNIQUE: This procedure was completed in conjunction with a Speech Language Pathologist. The patient was given barium of multiple different consistencies to swallow. Video fluoroscopy was employed during the exam. FINDINGS: Oral-pharyngeal swallow function is mildly impaired. Penetration: Yes There is penetration of thin liquids, nectar thick liquids. Penetration is not sensed. The penetrated material is cleared. Aspiration: Yes There is aspiration of thin liquid. Aspiration is not sensed. The aspirated material is not cleared. Residue:Yes There is oral-pharyngeal residue of thin liquids, purees, solids. Residue is not sensed. The residual material is cleared. Other comments: None IMPRESSION: The swallowing mechanism is abnormal; see above comments. Please refer to the Speech Pathology procedure note for safe swallow recommendations as well as additional information regarding the oral-pharyngeal swallow function, plan of care, and recommended follow up. Dictated by: Camilo Frey M.D. The radiology attending physician has personally reviewed this study, and had reviewed and/or edited this written report and agrees with it. Electronically signed by: Taryn Thompson M.D. Jagdeep Roque MD IMG FLUOROSCOPY PROCEDURES Final Result * US Carotids Duplex Bilateral (02/10/2025 12:17 PM CDT) Anatomical Region Laterality Modality Vascular Bilateral Ultrasound 02/10/2025 10:2 5 AM CDT Narrative 02/11/2025 1:15 PM CDT [facility] - Department of Vascular Surgery, Vascular Laboratory [address] [place] [address] Carotid Duplex Ultrasound Report Patient Name: CHARLES FERRIS : 1955 (69y 7m) Study Date: 02/10/2025 10:25:17 AM Gender: M Tech: Location: [id number] Ref Provider: JAGDEEP ROQUE Quality: Adequate Order Provider: JAGDEEP ROQUE PROCEDURES: Carotid Report: Carotid duplex examination of the extracranial arteries was performed using 2D, color and spectral Doppler. INDICATIONS: stroke; assessment for symptomatic carotid stenosis - MEASUREMENTS: Right Value Units Left Value Units RT Prox CCA PSV 46 cm/sec LT Prox CCA PSV 68 cm/sec RT Prox CCA EDV 7 cm/sec LT Prox CCA EDV 17 cm/sec RT Distal CCA PSV 44 cm/sec LT Distal CCA PSV 65 cm/sec RT Distal CCA EDV 7 cm/sec LT Distal CCA EDV 20 cm/sec RT Prox ICA PSV 0 cm/sec LT Prox ICA PSV 747 cm/sec RT Prox ICA EDV 0 cm/sec LT Prox ICA EDV 342 cm/sec RT Mid ICA PSV 0 cm/sec LT Mid ICA PSV 111 cm/sec RT Mid ICA EDV 0 cm/sec LT Mid ICA EDV 45 cm/sec RT Distal ICA PSV 0 cm/sec LT Distal ICA PSV 66 cm/sec RT Distal ICA EDV 0 cm/sec LT Distal ICA EDV 33 cm/sec RT ECA Prx PSV 221 cm/sec LT ECA Prx PSV 94 cm/sec RT VERT PSV 122 cm/sec LT ICA/CCA 11.50 ratio LT VERT PSV 94 cm/sec FINDINGS: Performing Receiving Tank Operator: Latia Mehta RVT, RDMS. Rt Common Carotid Artery: The plaque in the right CCA appears to be heterogeneous and smooth. Rt Internal Carotid Artery: No evidence of color filling and absent Doppler signals within the right internal carotid artery. Significant atherosclerotic disease present on 2D imaging. Rt External Carotid Artery: Patent right external carotid artery with evidence of atherosclerotic disease present. Elevated velocities noted. Rt Vertebral Artery: The right vertebral artery is patent with antegrade flow. Lt Common Carotid Artery: The plaque in the left CCA appears to be heterogeneous and smooth. Lt Internal Carotid Artery: The plaque in the left internal carotid artery appears to be heterogeneous, calcified and irregular (at the proximal ICA). Significant atherosclerotic changes of the left internal carotid artery with elevated peak systolic velocity and end diastolic velocity, as above. >70% stenosis. Lt External Carotid Artery: Patent left external carotid artery with evidence of atherosclerotic disease present. Lt Vertebral Artery: The left vertebral artery is patent with antegrade flow. Provider Notification: Results called on the above date to Shazia Lyons MD @12:08pm. CONCLUSIONS: 1. The right internal carotid artery disease is consistent with a severe obstruction or complete occlusion. 2. The left internal carotid artery disease is consistent with a more than 70% stenosis. 3. No evidence of hemodynamically significant stenosis in the common carotid artery bilaterally. 4. Normal, antegrade flow is noted in bilateral vertebral arteries. HISTORY: Acute ischemic right MCA stroke. PREVIOUS STUDIES: No previous studies for comparison. 01-13-2025 CTA, bilateral ICA >90%. DISCLAIMER: The study images and the final report will be retained in the patient chart by the Vascular Laboratory for the legally required time period. This chart constitutes the legal record of any testing performed. ATTESTATION: I have reviewed and interpreted the pertinent images and measurements of this study. I attest to the conclusions in the final report that is provided above. Electronically Signed By: Jimenez Ramsey MD [facility] [phone] 02/11/2025 12:05:46 PM CDT Procedure Note Jimenez Ramsey MD - 02/11/2025 [facility] - Department of Vascular Surgery,Vascular Laboratory [address] [place] [address] Carotid Duplex Ultrasound Report Patient Name: CHARLES FERRIS : 1955 (69y 7m) Study Date: 02/10/2025 10:25:17 AM Gender: M Tech: Location: [id number] Ref Provider: JAGDEEP ROQUE Quality: Adequate Order Provider: JAGDEEP ROQUE PROCEDURES: Carotid Report: Carotid duplex examination of the extracranial arterieswas performed using 2D, color and spectral Doppler. INDICATIONS: stroke; assessment for symptomatic carotid stenosis - MEASUREMENTS: Right Value Units Left Value Units RT Prox CCA PSV 46 cm/sec LT Prox CCA PSV 68 cm/sec RT Prox CCA EDV 7 cm/sec LT Prox CCA EDV 17 cm/sec RT Distal CCA PSV 44 cm/sec LT Distal CCA PSV 65 cm/sec RT Distal CCA EDV 7 cm/sec LT Distal CCA EDV 20 cm/sec RT Prox ICA PSV 0 cm/sec LT Prox ICA PSV 747 cm/sec RT Prox ICA EDV 0 cm/sec LT Prox ICA EDV 342 cm/sec RT Mid ICA PSV 0 cm/sec LT Mid ICA PSV 111 cm/sec RT Mid ICA EDV 0 cm/sec LT Mid ICA EDV 45 cm/sec RT Distal ICA PSV 0 cm/sec LT Distal ICA PSV 66 cm/sec RT Distal ICA EDV 0 cm/sec LT Distal ICA EDV 33 cm/sec RT ECA Prx PSV 221 cm/sec LT ECA Prx PSV 94 cm/sec RT VERT PSV 122 cm/sec LT ICA/CCA 11.50 ratio LT VERT PSV 94 cm/sec FINDINGS: Performing Receiving Tank Operator: Latia Mehta RVT, AUBREY. Rt Common Carotid Artery: The plaque in the right CCA appears to beheterogeneous and smooth. Rt Internal Carotid Artery: No evidence of color filling and absentDoppler signals within the right internal carotid artery. Significant atheroscleroticdisease present on 2D imaging. Rt External Carotid Artery: Patent right external carotid artery withevidence of atherosclerotic disease present. Elevated velocities noted. Rt Vertebral Artery: The right vertebral artery is patent with antegradeflow. Lt Common Carotid Artery: The plaque in the left CCA appears to beheterogeneous and smooth. Lt Internal Carotid Artery: The plaque in the left internal carotid arteryappears to be heterogeneous, calcified and irregular (at the proximal ICA). Significantatherosclerotic changes of the left internal carotid artery with elevated peak systolicvelocity and end diastolic velocity, as above. >70% stenosis. Lt External Carotid Artery: Patent left external carotid artery withevidence of atherosclerotic disease present. Lt Vertebral Artery: The left vertebral artery is patent with antegradeflow. Provider Notification: Results called on the above date to Shazia Lyons MD@12:08pm. CONCLUSIONS: 1. The right internal carotid artery disease is consistent with a severeobstruction or complete occlusion. 2. The left internal carotid artery disease is consistent with a more than70% stenosis. 3. No evidence of hemodynamically significant stenosis in the commoncarotid artery bilaterally. 4. Normal, antegrade flow is noted in bilateral vertebral arteries. HISTORY: Acute ischemic right MCA stroke. PREVIOUS STUDIES: No previous studies for comparison. 01-13-2025 CTA, bilateral ICA >90%. DISCLAIMER: The study images and the final report will be retained in the patientchart by the Vascular Laboratory for the legally required time period. This chartconstitutes the legal record of any testing performed. ATTESTATION: I have reviewed and interpreted the pertinent images and measurements ofthis study. I attest to the conclusions in the final report that is provided above. Electronically Signed By: Jimenez Ramsey MD [facility] [phone] 02/11/2025 12:05:46 PM CDT us Jagdeep Roque MD IM US PROCEDURES Final Re sult * eGFR (02/09/2025 7:38 PM CDT) eGFR >90 >=60 mL/min/1. 73 m2 Comment: Interpretive Data Reference Interval Normal >/= 90 mL/min/1.73m2 Mildly decreased* 60 - 89 mL/min/1.73m2 Mildly to moderately decreased 45 - 59 mL/min/1.73m2 Moderately to severely decreased 30 - 44 mL/min/1.73m2 Severely decreased 15 - 29 mL/min/1.73m2 Kidney Failure < 15 mL/min/1.73m2 *Relative to young adult level Estimated glomerular filtration rate is determined by the 2020 CKD-EPI equation recommended by the National Kidney Foundation (A Unifying Approach to GFR Estimation: Recommendations of the NKF-ASK Task Force on Reassessing the Inclusion of Race in Diagnosing Kidney Disease, JASN 2020). The CKD-EPI equation should not be used for patients with unstable renal function and has not been validated in children and those over 70. Current interpretive data was last reviewed 2021. Blood 02/09/2025 7:38 PM CDT 02/09/2025 8:04 PM CDT us Jagdeep Roque MD LAB BLOOD ORDERABLES Final Result [facility] Department [place] [address] * (ABNORMAL) CBC without differential (02/09/2025 7:38 PM CDT) WBC 8.8 3.8 - 9.9 K/cumm Hgb 9.0(L) 13.0 - 17.5 g/dL [facility] Hct 27.7(L) 38.9 - 50.3 % [facility] Plt 121(L) 150 - 400 K/cumm [facility] MPV 12.0 9.1 - 12.3 fL [facility] RBC 2.94(L) 4.30 - 5.80 M/cumm [facility] MCV 94.2 81.3 - 96.4 fL [facility] MCH 30.6 27.1 - 33.3 pg [facility] MCHC 32.5 32.3 - 35.7 g/dL [facility] RDW CV 12.4 11.1 - 14.9 % [facility] RDW SD 42.5 35.7 - 48.1 fL [facility] NRBC abs 0.00 0.00 - 0.01 K/cumm [facility] Blood 02/09/2025 7:38 PM CDT 02/09/2025 8:05 PM CDT Jagdeep Roque MD LAB BLOOD ORDERABLES Final Result Performing Organization Address City/[facility]/ZIP Co de Phone Number [facility] Department [place] [address] * (ABNORMAL) Basic metabolic panel (02/09/2025 7:38 PM CDT) [facility] Sodium 143 135 - 145 mmol/L Potassium, pl 3.8 3.3 - 4.9 mmol/L [facility] Chloride 108 97 - 110 mmol/L [facility] CO2 25 22 - 32 mmol/L [facility] Anion gap 10 2 - 15 mmol/L [facility] BUN 10 6 - 25 mg/dL [facility] Creatinine 0.67(L) 0.80 - 1.30 mg/dL [facility] Glucose 203(H) 70 - 199 mg/dL [facility] Comment: Interpretive Data Fasting glucose >/= 126 mg/dl is diagnostic for diabetes. Fasting is defined as no caloric intake for at least 8 hours. Fasting glucose between 100 mg/dl to 125 mg/dl is diagnostic of prediabetes. In a patient with classic symptoms of hyperglycemia or hyperglycemic crisis, a random glucose >/= 200 mg/dl is diagnostic for diabetes. In the absence of unequivocal hyperglycemia, results should be confirmed by repeat testing. The classification and Diagnosis of Diabetes Diabetes Care 2021; 46: S19-S40. Current interpretive data was last revised 2022. Calcium 8.2(L) 8.5 - 10.3 mg/dL [facility] Blood 02/09/2025 7:38 PM CDT 02/09/2025 8:04 PM CDT Jagdeep Roque MD LAB BLOOD ORDERABLES Final Result Performing Organization Address City/[facility]/ZIP Co de Phone Number [facility] Department [place] [address] * CT Head WO Contrast (02/09/2025 5:16 PM CDT) Anatomical Region Laterality Modality Head and Neck N/A Computed Tomogra phy 02/09/2025 6:34 PM CDT Impressions 02/09/2025 6:37 PM CDT 1. Areas of hypoattenuation the right MCA territory may reflect evolving sequela of recent right MCA infarct, correlate with recent outside imaging if available to assess interval change. No acute intracranial hemorrhage. 2. Mucosal thickening with layering fluid and mottled gas in the left maxillary sinus can be seen in the setting of acute sinusitis. Dictated by: Grace Bridges MD The radiology attending physician has personally reviewed this study, and had reviewed and/or edited this written report and agrees with it. Electronically signed by: Sue Pacheco MD Narrative 02/09/2025 6:37 PM CDT EXAMINATION: CT head without contrast HISTORY: Right MCA occlusion status post TNK on 02/08/25 TECHNIQUE: CT of the head was performed with images acquired from skull base to vertex without intravenous contrast. COMPARISON: None Available. FINDINGS: There is no acute intracranial hemorrhage. Areas of subtle asymmetric hypoattenuation in the right frontal and parietal lobes likely reflect evolving sequela of recent right MCA infarct (series 4 images 30-35). Ventricles are of normal size and morphology. No mass effect or midline shift is present. The visualized portions of the orbits are normal. The visualized portions of the mastoids are normal. Moderate mucosal thickening with layering fluid and mottled gas in the left maxillary sinus be seen in the setting of acute sinusitis. No acute fractures are identified. Procedure Note Sue Pacheco MD PhD - 02/09/2025 EXAMINATION: CT head without contrast HISTORY: Right MCA occlusion status post TNK on 02/08/25 TECHNIQUE: CT of the head was performed with images acquired from skull base to vertex without intravenous contrast. COMPARISON: None Available. FINDINGS: There is no acute intracranial hemorrhage. Areas of subtle asymmetric hypoattenuation in the right frontal and parietal lobes likely reflect evolving sequela of recent right MCA infarct (series 4 images 30-35). Ventricles are of normal size and morphology. No mass effect or midline shift is present. The visualized portions of the orbits are normal. The visualized portions of the mastoids are normal. Moderate mucosal thickening with layering fluid and mottled gas in the left maxillary sinus be seen in the setting of acute sinusitis. No acute fractures are identified. IMPRESSION: 1. Areas of hypoattenuation the right MCA territory may reflect evolving sequela of recent right MCA infarct, correlate with recent outside imaging if available to assess interval change. No acute intracranial hemorrhage. 2. Mucosal thickening with layering fluid and mottled gas in the left maxillary sinus can be seen in the setting of acute sinusitis. Dictated by: Grace Bridges MD The radiology attending physician has personally reviewed this study, and had reviewed and/or edited this written report and agrees with it. Electronically signed by: Sue Pacheco MD Jagdeep Roque MD IMG CT PROCEDURES Final Re sult * Troponin I high-sensitivity series (baseline, 2hr, 4hr, 6hr) (02/08/2025 11:23 PM CDT) Trop I hs 8 <=35 ng/L Comment: Interpretive Data For further hscTnI resources including the diagnostic algorithm and an aid in interpretation, copy and paste this link: [email or web address]://bjhlab.testcatalog.org/show/[email or web address] Current Interpretive Data last revised 2020. Blood 02/08/2025 11:2 3 PM CDT 02/09/2025 12:45 AM CDT Jagdeep Roque MD LAB BLOOD ORDERABLES Final Result [facility] Department [place] [address] * (ABNORMAL) Urinalysis reflex to microscopic and culture Urine (02/08/2025 10:19 PM CDT) Color, ur Straw Yellow Clarity, ur Clear Clear [facility] Specific gravity, ur 1.037(H) 1.003 - 1.030 [facility] pH, urine 7.0 [facility] Comment: Interpretive Data U rine pH is affected by diet, medications, systemic acid-base disturbances, and renal tubular function. pH may affect urinary stone formation. For example, urine pH below 6.0 may help reduce the tendency for calcium phosphate stones and pH greater than 6.0 may reduce the tendency for uric acid stone formation. Source: [facility] Current Interpretive Data was last revised on 2017 Protein, ur ql Negative Negative [facility] Glucose, ur ql Negative Negative [facility] Ketones, ur Negative Negative [facility] Bilirubin, ur Negative Negative [facility] Blood, ur Negative Negative [facility] Urobilinogen, ur <2.0 <2.0 mg/dL [facility] Nitrite, ur Negative Negative [facility] Leukocyte esterase, ur Negative Negative [facility] UA reflex comment Reflex conditions for microscopic UA and culture not met. [facility] Urine 02/08/2025 10:1 9 PM CDT 02/08/2025 10:50 PM CDT us Jagdeep Roque MD LAB MICROBIOLOGY - GENERAL ORDERABLES Final Result [facility] Department [place] [address] * (ABNORMAL) Drugs of Abuse Screen, Urine with Reflex Confirmation (02/08/2025 10:15 PM CDT) Amphetamine, ur Not Detected CutOff 500ng/mL Comment: Interpretive Data - Amphetamines: Samples containing greater than 500 ng/mL d-methamphetamine or other cross-reacting amphetamine compounds are reported as positive. Amphetamine immunoassays are subject to significant false positive rates due to cross-reactivity of non-amphetamine drugs. Confirmatory testing required for definitive results. Current Interpretive Data was last reviewed 2023. Barbiturates, ur Not Detected CutOff 200ng/mL [facility] Comment: Interpretive Data - Barbiturates: Samples containing greater than 200 ng/mL secobarbital or other cross-reacting barbiturate compounds are reported as positive. False positive and false negative results are possible. Confirmatory testing required for definitive results. Current Interpretive Data was last reviewed 2023. Benzodiazepines, ur Not Detected CutOff 100ng/mL [facility] Comment: Interpretive Data - Benzodiazepines: Samples containing greater than 100 ng/mL nordiazepam or other cross-reacting compounds are reported as positive. False positive and false negative results are possible. Confirmatory testing required for definitive results. Current Interpretive Data was last reviewed 2023. Cannabinoids, ur Screen Positive, presumptive (A) CutOff 50 ng/mL [facility] Comment: Interpretive Data - Cannabinoids: Samples containing greater than 50 ng/mL delta-9 THC -COOH or other cross- reacting compounds are reported as positive. False positive and false negative results are possible. Confirmatory testing required for definitive results. Current Interpretive Data was last reviewed 2023. Cocaine, ur Screen Positive, presumptive (A) CutOff 150ng/mL [facility] Comment: Interpretive Data - Cocaine: Samples containing greater than 150 ng/mL benzoylecgonine or other cross- reacting compounds are reported as positive. False positive and false negative results are possible. Confirmatory testing required for definitive results. Current Interpretive Data was last reviewed 2023. Fentanyl, Ur Not Detected CutOff 5 ng/mL [facility] Comment: Interpretive Data - Fentanyl: Samples containing greater than 5 ng/mL norfentanyl, fentanyl, or other cross-reacting fentanyl compounds are reported as positive. False positive and false negative results are possible. Confirmatory testing required for definitive results. Current Interpretive Data was last reviewed 2024. Methadone, ur Not Detected CutOff 300ng/mL [facility] Comment: Interpretive Data - Methadone: Samples containing greater than 300 ng/mL d,l-methadone or other cross-reacting compounds are reported as positive. False positive and false negative results are possible. Confirmatory testing required for definitive results. Current Interpretive Data was last reviewed 2023. Opiates, ur Not Detected CutOff 300ng/mL [facility] Comment: Interpretive Data - Opiates: Samples containing greater than 300 ng/mL morphine or other cross-reacting compounds are reported as positive. False positive and false negative results are possible. Confirmatory testing required for definitive results. Current Interpretive Data was last reviewed 2023. Oxycodone, ur Not Detected CutOff 100ng/mL [facility] Comment: Interpretive Data - Oxycodone: Samples containing greater than 100 ng/mL oxycodone or other cross-reacting compounds are reported as positive. False positive and false negative results are possible. Confirmatory testing required for definitive results. Current Interpretive Data was last reviewed 2023. Phencyclidine, ur Not Detected CutOff 25 ng/mL [facility] Comment: Interpretive Data - Phencyclidine: Samples containing greater than 25 ng/mL phencyclidine or other cross-reacting compounds are reported as positive. False positive and false negative results are possible. Confirmatory testing required for definitive results. Current Interpretive Data was last reviewed 2023. Urine Creatinine 67 mg/dL [facility] Comment: Interpretive Data Urine Creatinine: < 10 mg/dL is extremely dilute = or > 10 but < 20 mg/dL is dilute = or > 20 mg/dL is normal Current Interpretive Data was last revised on 2018. Urine 02/08/2025 10:1 5 PM CDT 02/08/2025 11:31 PM CDT Narrative [facility] - 02/09/2025 12:03 AM CDT Drug of Abuse screening is performed by immunoassay for medical purposes only. This is not to be used for Pain Management purposes. If Detected, confirmation testing will be performed for Amphetamines, Cocaine, Fentanyl, Methadone, Opiates, Oxycodone or Phencyclidine. Jagdeep Roque MD LAB URINE ORDERABLES Final Result [facility] Department [place] [address] * (ABNORMAL) Cocaine Confirmation, Urine (02/08/2025 10:15 PM CDT) Cocaine Metabolite (BEG) Conf, Ur Confirmed Positive(A) CutOff 100ng/mL Comment: Interpretive Data This test detects the presence or absence of drug compounds using LC Tandem mass spectrometry. While this test is highly specific, false positive and false negative results may occur in very rare circumstances. Contact the laboratory for consultation, if needed. Performance characteristics were determined by the [facility] in a manner consistent with CLIA requirement and has not been cleared or approved by the U.S. Food and Drug Administration. Current interpretive data was last revised on 2021. Urine 02/08/2025 10:1 5 PM CDT 02/08/2025 11:35 PM CDT us Jagdeep Roque MD LAB URINE ORDERABLES Final Result [facility] Department [place] [address] * XR Chest 1 View (02/08/2025 7:29 PM CDT) Anatomical Region Laterality Modality Body, Chest N/A Computed Radiogr aphy 02/09/2025 7:01 AM CDT Impressions 02/09/2025 7:01 AM CDT There are no prior radiographs or chest CT exams available for comparison. A linear lucency in the periphery of the right upper lung has appearance favorable for a skinfold. Superimposed on this are patchy airspace opacities in bilateral upper lobes, right greater than left, which are worrisome for pneumonia. Another focal opacity in the left lower lobe is also concerning for another focus of pneumonia or aspiration. There is no pleural effusion or pneumothorax. The heart size is normal. Electronically signed by: Elaina Hopkins M.D. Narrative 02/09/2025 7:01 AM CDT EXAMINATION: 1 view chest radiograph Procedure Note Elaina Hopkins MD - 02/09/2025 EXAMINATION: 1 view chest radiograph IMPRESSION: There are no prior radiographs or chest CT exams available for comparison. A linear lucency in the periphery of the right upper lung has appearance favorable for a skinfold. Superimposed on this are patchy airspace opacities in bilateral upper lobes, right greater than left, which are worrisome for pneumonia. Another focal opacity in the left lower lobe is also concerning for another focus of pneumonia or aspiration. There is no pleural effusion or pneumothorax. The heart size is normal. Electronically signed by: Elaina Hopkins M.D. us Jagdeep Roque MD IMG XR PROCEDURES Final Re sult * Troponin I high-sensitivity (02/08/2025 6:34 PM CDT) Trop I hs 5 <=35 ng/L Comment: Interpretive Data For further hscTnI resources including the diagnostic algorithm and an aid in interpretation, copy and paste this link: [email or web address].[email or web address]/[email or web address] Current Interpretive Data last revised 2020. Blood 02/08/2025 6:34 PM CDT 02/08/2025 7:37 PM CDT us Jagdeep Roque MD LAB BLOOD ORDERABLES Final Result [facility] Department [place] [address] * eGFR (02/08/2025 6:34 PM CDT) eGFR >90 >=60 mL/min/1. 73 m2 Comment: Interpretive Data Reference Interval Normal >/= 90 mL/min/1.73m2 Mildly decreased* 60 - 89 mL/min/1.73m2 Mildly to moderately decreased 45 - 59 mL/min/1.73m2 Moderately to severely decreased 30 - 44 mL/min/1.73m2 Severely decreased 15 - 29 mL/min/1.73m2 Kidney Failure < 15 mL/min/1.73m2 *Relative to young adult level Estimated glomerular filtration rate is determined by the 2020 CKD-EPI equation recommended by the National Kidney Foundation (A Unifying Approach to GFR Estimation: Recommendations of the NKF-ASK Task Force on Reassessing the Inclusion of Race in Diagnosing Kidney Disease, JASN 2020). The CKD-EPI equation should not be used for patients with unstable renal function and has not been validated in children and those over 70. Current interpretive data was last reviewed 2021. Blood 02/08/2025 6:34 PM CDT 02/08/2025 7:37 PM CDT Jagdeep Roque MD LAB BLOOD ORDERABLES Final Result [facility] Department [place] [address] * (ABNORMAL) CBC without differential (02/08/2025 6:34 PM CDT) [facility] WBC 11.1(H) 3.8 - 9.9 K/cumm Hgb 11.8(L) 13.0 - 17.5 g/dL [facility] Hct 35.2(L) 38.9 - 50.3 % [facility] Plt 180 150 - 400 K/cumm [facility] MPV 11.2 9.1 - 12.3 fL [facility] RBC 3.78(L) 4.30 - 5.80 M/cumm [facility] MCV 93.1 81.3 - 96.4 fL [facility] MCH 31.2 27.1 - 33.3 pg [facility] MCHC 33.5 32.3 - 35.7 g/dL [facility] RDW CV 12.3 11.1 - 14.9 % [facility] RDW SD 42.7 35.7 - 48.1 fL [facility] NRBC abs 0.00 0.00 - 0.01 K/cumm [facility] Blood 02/08/2025 6:34 PM CDT 02/08/2025 7:37 PM CDT us Jagdeep Roque MD LAB BLOOD ORDERABLES Final Result [facility] Department [place] [address] * Hemoglobin A1c (02/08/2025 6:34 PM CDT) Pathologist [facility] Hgb A1C 5.5 4.0 - 5.6 % Estimated Average Glucose 111 mg/dL [facility] Comment: The ADA recommends reporting an estimated Average Glucose (eAG) with all Hemoglobin A1c results using the equation derived from a study of 507 normal and diabetic adults. Minority populations were underrepresented and children were not included. (Diabetes Care 2020; 43(S1): S66-S76). The eAG is not equivalent to a fasting glucose. Blood 02/08/2025 6:34 PM CDT 02/08/2025 7:37 PM CDT us Jagdeep Roque MD LAB BLOOD ORDERABLES Final Result [facility] Department [place] [address] * (ABNORMAL) Lipid panel (02/08/2025 6:34 PM CDT) Cholesterol 147 30 - 199 mg/dL Comment: Interpretive Data Ages < or = 19 years Acceptable: <170 mg/dL Borderline high: 170-199 mg/dL High: >or= 200 mg/dL Ages > or = 20 years Desirable: <200 mg/dL Borderline high: 200-239 mg/dL High: >or= 240 mg/dL Literature References: 1. Expert Panel on Integrated Guidelines for Cardiovascular Health and Risk Reduction in Children and Adolescents. Pediatrics 2011;128:S213 2. NCEP Expert Panel. Circulation 2004;110:227 Current Interpretive Data was last revised on 2018. Triglycerides 89 <=149 mg/dL [facility] Comment: Interpretive Data Ages < or = 9 years Acceptable: <75 mg/dL Borderline high: 75-99 mg/dL High: >or= 100 mg/dL Ages 10 to 20 years Acceptable: <90 mg/dL Borderline high: 90-129 mg/dL High: >or= 130 mg/dL Ages > or = 20 years Desirable: <150 mg/dL Borderline high: 150-199 mg/dL High: 200-499 mg/dL Very high: >or= 499 mg/dL Literature References: 1. Expert Panel on Integrated Guidelines for Cardiovascular Health and Risk Reduction in Children and Adolescents. Pediatrics 2011;128:S213 2. NCEP Expert Panel. Circulation 2004;110:227 Current Interpretive Data was last revised on 2018. HDL 28(L) >=40 mg/dL [facility] Comment: Interpretive Data Ages < or = 19 years Acceptable: >45 mg/dL Borderline low: 40-45 mg/dL Low: <40 mg/dL Ages > or = 20 years Desirable: >or= 60 mg/dL Low: <40 mg/dL Literature References: 1. Expert Panel on Integrated Guidelines for Cardiovascular Health and Risk Reduction in Children and Adolescents. Pediatrics 2011;128:S213 2. NCEP Expert Panel. Circulation 2004;110:227 Current Interpretive Data was last revised on 2018. LDL, calculated 102 <=129 mg/dL [facility] Comment: Interpretive Data Ages < or = 19 years Acceptable: <110 mg/dL Borderline high: 110-129 mg/dL High: >or= 130 mg/dL Ages > or = 20 years Optimal: <100 mg/dL Near optimal: 100-129 mg/dL Borderline high: 130-159 mg/dL High: >160 mg/dL Calculated using the Claus LDL-C estimating equation. This equation was implemented on 2024. Prior to this date LDL-C was estimated using the Friedewald equation. Literature References: 1. Expert Panel on Integrated Guidelines for Cardiovascular Health and Risk Reduction in Children and Adolescents. Pediatrics 2011;128:S213 2. NCEP Expert Panel. Circulation 2004;110:227 3. Claus Cervantes et al. SHIRA Cardiol. 2020 March 20;5(5):540-548. doi: 10.1001/jamacardio.2020.0013 Current Interpretive Data was last revised on 2024. Non-HDL Cholesterol 119 mg/dL [facility] Comment: Interpretive Data Ages < or = 19 years Acceptable: <120 mg/dL Borderline high: 120-144 mg/dL High: >145 mg/dL Ages > or = 20 years When triglycerides are >200 mg/dL, Non-HDL cholesterol is a secondary target of therapy with treatment goals that are 30 mg/dL greater than the LDL cholesterol target. Literature References: 1. Expert Panel on Integrated Guidelines for Cardiovascular Health and Risk Reduction in Children and Adolescents. Pediatrics 2011;128:S213 2. NCEP Expert Panel. Circulation 2004;110:227 Current Interpretive Data was last revised on 2018. Chol/HDL ratio 5 [facility] Blood 02/08/2025 6:34 PM CDT 02/08/2025 7:37 PM CDT Jagdeep Roque MD LAB BLOOD ORDERABLES Final Result [facility] Department [place] [address] * (ABNORMAL) Basic metabolic panel (02/08/2025 6:34 PM CDT) [facility] Sodium 139 135 - 145 mmol/L Potassium, pl 4.2 3.3 - 4.9 mmol/L [facility] Chloride 104 97 - 110 mmol/L [facility] CO2 23 22 - 32 mmol/L [facility] Anion gap 12 2 - 15 mmol/L [facility] BUN 17 6 - 25 mg/dL [facility] Creatinine 0.69(L) 0.80 - 1.30 mg/dL [facility] Glucose 132 70 - 199 mg/dL [facility] Comment: Interpretive Data Fasting glucose >/= 126 mg/dl is diagnostic for diabetes. Fasting is defined as no caloric intake for at least 8 hours. Fasting glucose between 100 mg/dl to 125 mg/dl is diagnostic of prediabetes. In a patient with classic symptoms of hyperglycemia or hyperglycemic crisis, a random glucose >/= 200 mg/dl is diagnostic for diabetes. In the absence of unequivocal hyperglycemia, results should be confirmed by repeat testing. The classification and Diagnosis of Diabetes Diabetes Care 202; 46: S19-S40. Current interpretive data was last revised 2022. Calcium 9.0 8.5 - 10.3 mg/dL [facility] Blood 02/08/2025 6:34 PM CDT 02/08/2025 7:37 PM CDT Jagdeep Roque MD LAB BLOOD ORDERABLES Final Result Performing Organization Address [facility]/ZIP Co de Phone Number [facility] Department [place] [address] from Last 3 Months Insurance MEDICARE MEDICARE Advance Directives For more information, please contact: [phone] * Full Code (Latest Code Status on File) Date Activated Date Inactivated Comments 02/08/2025 5:35 PM 02/11/2025 10:04 PM Care Teams Ride Attendant Relationship Specialty Start Date End Date Bernabe Allen DO [address] [place] [address] PCP - General Family Medicine 02/07/25
--- OUTSIDE RECORDS SUMMARY | 2025-02-28 10:46 | XMS_ITS | Clinical Summary ---
Author Organization [facility] Address [address] [place] [address] Phone Care Team Providers Care Pattern Attendant Name Role Phone En Ibrahim MD Primary Care Provider [phone] Allergies No known active allergies Medications pravastatin [...] Comments Blood Pressure 120/78 12/11/2019 1:11 PM CUSTOMER SOLUTIONS SPECIALIST Pulse 81 12/11/2019 1:11 PM CUSTOMER SOLUTIONS SPECIALIST Temperature 36.5 C (97.7 F) 12/11/2019 1:11 PM CUSTOMER SOLUTIONS SPECIALIST Respiratory Rate 20 12/11/2019 1:11 PM CUSTOMER SOLUTIONS SPECIALIST Oxygen Saturation 97% 12/11/2019 1:11 PM CUSTOMER SOLUTIONS SPECIALIST Inhaled Oxygen Concentration - - Weight 72.4 kg (159 lb 9.6 oz) 12/11/2019 1:11 P M CUSTOMER SOLUTIONS SPECIALIST Height 182.9 cm (6') 12/11/2019 1:11 PM CUSTOMER SOLUTIONS SPECIALIST Body Mass Index 21.65 12/11/2019 1:11 PM CUSTOMER SOLUTIONS SPECIALIST Plan of Treatment Health Maintenance Due Date [...] Comments PSA DIAGNOSTIC,TOTAL Routine 12/11/2019 2:09 PM CUSTOMER SOLUTIONS SPECIALIST BPH with obstruction/lower urinary tract symptoms from Last 3 Months or Most Recently Relevant to Health Maintenance Results * PSA DIAGNOSTIC,TOTAL (12/11/2019 2:09 PM CUSTOMER SOLUTIONS SPECIALIST) PSA, TOTAL (PROSTATIC SPECIFIC ANTIGEN) 2.32 <=4.00 ng/mL 12/11/2019 4:42 PM CUSTOMER SOLUTIONS SPECIALIST [facility] Blood specimen (specimen) Venipuncture / Unknown 12/11/2019 2:09 PM CUSTOMER SOLUTIONS SPECIALIST 12/11/2019 3:46 PM CUSTOMER SOLUTIONS SPECIALIST Narrative [facility] - 12/11/2019 4:42 PM CUSTOMER SOLUTIONS SPECIALIST PSA NOTE: The PSA value should be used in conjunction with information available from clinical evaluation and other diagnostic procedures. us Teresa Aguilar MD CHEMISTRY ORDERABLES Final Result [facility] [address] [place] [address] from Last 3 Months or Most Recently Relevant to Health Maintenance Insurance MEDICARE Care Teams Pattern Attendant Relationship Specialty Start Date End Date En Ibrahim MD [address] [place] [address] PCP - General Family Medicine 03/22/18
--- OUTSIDE RECORDS SUMMARY | 2025-02-28 10:46 | XMS_ITS | Clinical Summary ---
Author Organization [facility] Address [address] [place] [address] Care Team Providers Care Gold Reclaimer Name Role Phone En Ibrahim MD Primary Care Provider [phone] Source Comments [facility],non-owned Affiliates and Associated Physician Practices is amultiple site organization consisting of ambulatory clinics and hospital sitesin [place], [place], [place] and [place]. This disclosure is being madepursuant to the Care Everywhere program and may not contain all information available regarding this patient. Last updated 18.[facility] Allergies No known active allergies Medications * [...] VACCINE (1 - 2023-2 5 season) 2024 DEPRESSION SCREENING 11/20/2024 INFLUENZA VACCINE (Season Ended) 2025 Respiratory Syncytial Virus (RSV) Vaccine Pt: or [...] age to complete this topic Care Teams Gold Reclaimer Relationship Specialty Start Date End Date En Ibrahim MD [address] [place] [id number] PCP - General 04/10/18
--- OUTSIDE RECORDS SUMMARY | 2025-02-28 10:46 | XMS_ITS | Encounter Summary ---
Author Organization [facility] Address [address] [place] [id number] Care Team Providers Care Excavating Contractor Name Role Phone En Ibrahim MD Primary Care Provider [phone] Nick Barrientos MD Unavailable Encounter Details Date Type Department Care Team (Late st Contact Info) Description 04/27/2019 Abstract [facility] CONVERSION [address] [place] [address] , Generic Conversion, Social History Tobacco Use Types Packs/Day Years Used Date Smoking Tobacco: Every Day Cigarettes 1 45 Smokeless Tobacco: Never Alcohol Use Standard Drinks/Week Comments Yes 0 (1 standard drink = 0.6 oz pur e alcohol) moderate Sex and Gender Information Value Date Recorded Sex Assigned at Male 01/13/2025 12:37 PM TRAFFIC RATE COMPUTER Legal Sex Male 9:41 AM CDT Gender Identity Not on file Sexual Orientation Not on file Occupation Industry Job Start Date Job End Date retired Not on file Not on file Not on file documented as of this encounter Plan of Treatment Not on file documented as of this encounter Visit Diagnoses Not on filedocumented in this encounter Care Teams Excavating Contractor Relationship Specialty Start Date End Date En Ibrahim MD [address] [place] [address] PCP - General FAMILY PRACTICE 04/03/18 Nick Barrientos MD [address] [place] [address] Vascular/Golf Course Patroller INTERNAL MEDICINE 04/03/18 documented as of this encounter
--- OUTSIDE RECORDS SUMMARY | 2025-02-28 10:46 | XMS_ITS | Encounter Summary ---
Author Organization [facility] Address [address] [place] [address] Phone Care Team Providers Care Vacuum Metalizing Supervisor Name Role Phone Bernabe Allen Primary Care Provider Encounter Details Date Type Department Care Team (Late st Contact Info) Description 02/27/2025 Telephone [facility] Neurosurgery [address] [place] [address] [place] [address] Dylon Lowery MD [address] [place] [address] Social History Tobacco Use Types Packs/Day Years Used Date Smoking Tobacco: Every Day Cigarettes PHQ-2 Answer Date Recorded PHQ-2 Total Score [...] on file Sexual Orientation Not on file documented as of this encounter Miscellaneous Notes * Telephone Encounter - Sin Briceño BS - 02/27/2025 1:10 PM CDT Per OV with AV patient to decide between surgery vs stent, patient will contact office once he decides. documented in this encounter Plan of Treatment Not on file documented as of this encounter Visit Diagnoses Not on filedocumented in this encounter Care Teams Vacuum Metalizing Supervisor Relationship Specialty Start Date End Date Bernabe Allen DO [address] [place] [address] PCP - General Family Medicine 02/07/25 documented as of this encounter
--- OUTSIDE RECORDS SUMMARY | 2025-02-28 10:46 | XMS_ITS | Referral Summary ---
Author Organization [facility] Address [address] [place] [address] Care Team Providers Care Tower Helper Name Role Phone Bernabe Allen Primary Care Provider Encounters Date Type Department Care Team Description 02/27/2025 Telephone [facility] Neurosurgery [address] [facility] Advanced Medicine 6th [place] [address] [place] [address] Dylon Lowery MD 02/27/2025 12:30 PM CDT Office Visit [facility] Neurosurgery [address] [facility] 6[address] [place] [address] [place] [address] Dylon Lowery MD Internal carotid artery stenosis, left 02/12/2025 Telephone [facility] Scheduling [address] [place] [address] Megha Dela Cruz 02/08/2025 5:17 PM CDT - 02/11/2025 5:58 PM CDT Hospital Encounter [facility] [address] [place] [address] Jagdeep Roque MD Internal carotid artery stenosis, left (Primary Dx); Acute ischemic right MCA stroke (HCC) Discharge Disposition: Discharge to an IP Rehab facility 02/10/2025 8:25 AM CDT Ancillary Procedure [facility] Vascular Lab IP [address] [facility] [address] [place] [address] 02/10/2025 1:20 PM CDT - 02/10/2025 11:59 PM CDT Hospital Encounter [facility] Radiology 1 [facility] [place] [address] Discharge Disposition: Discharge to home or self care from Last 3 Months Allergies No known active allergies Medications aspirin 325 mg tablet Take 1 tablet (325 mg total) by mouth daily 5 02/13/20 Active atorvastatin (LIPITOR) 80 mg tabletIndicatio ns:Secondary Stroke Prevention Take 1 tablet (80 mg total) by mouth daily 5 02/13/20 Active nicotine (NICODERM CQ) 7 mgIndications:N icotine Dependence Place 1 patch on the skin daily for 24 hours 5 03/14/20 Active Additional Information Patient not taking.Reported on [...] artery disease 04/24/2018 Hyperlipidemia 04/24/2018 Smoker 04/24/2018 Immunizations Immunization Administration Dates Next Due Pneumococcal [...] 02/27/2025 12:25 PM CDT Plan of Treatment Not on file Procedures Procedure Name Priority Date/Time Associated Diagnosis [...] only and have not been reviewed by [facility] Radiology. There will be no report generated by a [facility] Radiologist. Narrative RAD_PACS_[facility] - 02/11/2025 11:00 AM CDT EXAMINATION: Images For Reference Purposes Only Sp Rendon MD IM CT PROCEDURES [facility] Performing Organization Address [facility] Co de Phone Number RAD_PACS_[facility] * Neuro CT Outside Reference (02/11/2025 10:59 AM CDT) Impressions RAD_PACS_[facility] - 02/11/2025 10:59 AM CDT These images are for Reference purposes only and have not been reviewed by [facility] Radiology. There will be no report generated by a [facility] Radiologist. Narrative RAD_PACS_[facility] - 02/11/2025 10:59 AM CDT EXAMINATION: Images For Reference Purposes Only Sp Rendon MD IMG CT PROCEDURES Final R esult RAD_PACS_[facility] * eGFR (02/10/2025 7:32 PM CDT) [...] of Race in Diagnosing Kidney Disease, JASN 202). The CKD-EPI equation should not be used for patients with unstable renal function and has not been validated in children and those over 70. Current interpretive data was last reviewed 2021. Blood 02/10/2025 7:32 PM CDT 02/10/2025 8:33 PM CDT us Jagdeep Roque MD LAB BLOOD ORDERABLES Final Result Performing Organization Address City/State/[facility] Co de Phone Number [facility] Department [place] [address] * (ABNORMAL) CBC without differential (02/10/2025 7:32 PM CDT) WBC 10.9(H) 3.8 - 9.9 K/cumm Hgb 11.5(L) 13.0 - 17.5 g/dL [facility] Hct 34.7(L) 38.9 - 50.3 % [facility] Plt 235 150 - 400 K/cumm [facility] MPV 11.3 9.1 - 12.3 fL [facility] RBC 3.71(L) 4.30 - 5.80 M/cumm [facility] MCV 93.5 81.3 - 96.4 fL [facility] MCH 31.0 27.1 - 33.3 pg [facility] MCHC 33.1 32.3 - 35.7 g/dL [facility] RDW CV 12.3 11.1 - 14.9 % [facility] RDW SD 42.5 35.7 - 48.1 fL [facility] NRBC abs 0.00 0.00 - 0.01 K/cumm [facility] Blood 02/10/2025 7:32 PM CDT 02/10/2025 8:33 PM CDT Jagdeep Roque MD LAB BLOOD ORDERABLES Final Result Performing Organization Address City/[facility]/ZIP Co de Phone Number [facility] Department [place] [address] * (ABNORMAL) Basic metabolic panel (02/10/2025 7:32 PM CDT) [facility] Sodium 142 135 - 145 mmol/L Potassium, pl 3.5 3.3 - 4.9 mmol/L [facility] Chloride 106 97 - 110 mmol/L [facility] CO2 27 22 - 32 mmol/L [facility] Anion gap 9 2 - 15 mmol/L [facility] BUN 7 6 - 25 mg/dL [facility] Creatinine 0.71(L) 0.80 - 1.30 mg/dL [facility] Glucose 219(H) 70 - 199 mg/dL [facility] Comment: Interpretive Data Fasting glucose >/= 126 [...] 2022. Calcium 8.4(L) 8.5 - 10.3 mg/dL [facility] Blood 02/10/2025 7:32 PM CDT 02/10/2025 8:33 PM CDT Jagdeep Roque MD LAB BLOOD ORDERABLES Final Result Performing Organization Address [facility]/ZIP Co de Phone Number [facility] Department [place] [address] * TRANSTHORACIC ECHO (TTE) COMPLETE W DOPPLER/CF W CONTRAST W BUBBLE (02/10/2025 5:32 PM CDT) Anatomical Region Laterality Modality Ultrasound 02/10/2025 4:39 PM CDT Narrative 02/10/2025 5:54 PM CDT [facility] [place] [address] Transthoracic Echocardiographic Report Patient Name: CHARLES FERRIS : 1955 (69y 7m) Gender: M Study Date: 02/10/2025 04:39:30 PM Ht(Inch): 67 Wt(Lb): 151.9 BSA: 1.8 Loom Stop Checker: Bob Morin RDCS Location: [id number] Order Provider: JAGDEEP ROQUE Heart Rate: 72 [...] RA and IVC. 5. Mild TR and MA. Trace MR. Est. PASP ~ 25 mm [...] Procedure Note Adam Sanchez MD - 02/10/2025 [facility] [address] [place] [address] Transthoracic Echocardiographic Report Patient Name: CHARLES FERRIS : 1955 (69y 7m) Gender: M Study Date: 02/10/2025 04:39:30 PM Ht(Inch): 67 Wt(Lb): 151.9 BSA: 1.8 Loom Stop Checker: Bob Morin RDCS Location: [id number] Order Provider:JAGDEEP ROQUE Heart Rate: 72 BMI: [...] RA and IVC. 5. Mild TR and MA. Trace MR. Est. PASP ~ 25 mm [...] LA Length 4C 4.23 cm MV Decel Vnse005.54 msec [ 104.00 - 258.00 ] LA [...] it. Electronically signed by: Taryn Thompson M.D. us Jagdeep Roque MD IMG FLUOROSCOPY PROCEDURES Final Result * US Carotids Duplex Bilateral (02/10/2025 12:17 PM CDT) Anatomical Region Laterality Modality Vascular Bilateral Ultrasound 02/10/2025 10:2 5 AM CDT Narrative 02/11/2025 1:15 PM CDT [facility] - Department of Vascular Surgery, Vascular Laboratory [address] [place] [address] Carotid Duplex Ultrasound Report Patient Name: CHARLES FERRIS : 1955 (69y 7m) Study Date: 02/10/2025 10:25:17 AM Gender: M Tech: Location: [id number] Ref Provider: JAGDEEP ROQUE Quality: Adequate Order [...] LT VERT PSV 94 cm/sec FINDINGS: Performing Loom Stop Checker: Latia Mehta RVT, AUBREY. Rt Common Carotid [...] PREVIOUS STUDIES: No previous studies for comparison. 2-24-2025 CTA, bilateral ICA >90%. DISCLAIMER: The study [...] above. Electronically Signed By: Jimenez Ramsey MD [facility] [phone] 02/11/2025 12:05:46 PM CDT Procedure Note Jimenez Ramsey MD - 02/11/2025 [facility] - Department of Vascular Surgery,Vascular Laboratory [address] [place] [address] Carotid Duplex Ultrasound Report Patient Name: CHARLES FERRIS : 1955 (69y 7m) Study Date: 02/10/2025 10:25:17 AM Gender: M Tech: Location: [id number] Ref Provider: JAGDEEP ROQUE Quality: Adequate Order [...] LT VERT PSV 94 cm/sec FINDINGS: Performing Loom Stop Checker: Latia Mehta RVT, AUBREY. Rt Common Carotid [...] above. Electronically Signed By: Jimenez Ramsey MD [facility] [phone] 02/11/2025 12:05:46 PM CDT us Jagdeep Roque MD IMG US PROCEDURES Final Re sult * eGFR [...] BLOOD ORDERABLES Final Result Performing Organization Address City/[facility]/ZIP Co de Phone Number [facility] Department [place] [employer] [place] [address] * (ABNORMAL) CBC without differential (02/09/2025 7:38 PM CDT) Pathologist [facility] WBC 8.8 3.8 - 9.9 K/cumm Hgb 9.0(L) 13.0 - 17.5 g/dL [facility] Hct 27.7(L) 38.9 - 50.3 % [facility] Plt 121(L) 150 - 400 K/cumm [facility] MPV 12.0 9.1 - 12.3 fL [facility] RBC 2.94(L) 4.30 - 5.80 M/cumm [facility] MCV 94.2 81.3 - 96.4 fL [facility] MCH 30.6 27.1 - 33.3 pg [facility] MCHC 32.5 32.3 - 35.7 g/dL [facility] RDW CV 12.4 11.1 - 14.9 % [facility] RDW SD 42.5 35.7 - 48.1 fL [facility] NRBC abs 0.00 0.00 - 0.01 K/cumm [facility] Blood 02/09/2025 7:38 PM CDT 02/09/2025 8:05 PM CDT Jagdeep Roque MD LAB BLOOD ORDERABLES Final Result Performing Organization Address City/[facility]/ZIP Co de Phone Number [facility] Department [place] [address] * (ABNORMAL) Basic metabolic panel (02/09/2025 7:38 PM CDT) Sodium 143 135 - 145 mmol/L Potassium, pl 3.8 3.3 - 4.9 mmol/L [facility] Chloride 108 97 - 110 mmol/L [facility] CO2 25 22 - 32 mmol/L [facility] Anion gap 10 2 - 15 mmol/L [facility] BUN 10 6 - 25 mg/dL [facility] Creatinine 0.67(L) 0.80 - 1.30 mg/dL [facility] Glucose 203(H) 70 - 199 mg/dL [facility] Comment: Interpretive Data Fasting glucose >/= 126 [...] 2022. Calcium 8.2(L) 8.5 - 10.3 mg/dL [facility] Blood 02/09/2025 7:38 PM CDT 02/09/2025 8:04 PM CDT us Jagdeep Roque MD LAB BLOOD ORDERABLES Final Result [facility] Department [place] [address] * CT Head WO Contrast (02/09/2025 5:16 [...] it. Electronically signed by: Sue Pacheco MD us Jagdeep Roque MD IMG CT PROCEDURES Final [...] 3 PM CDT 02/09/2025 12:45 AM CDT us Jagdeep Roque MD LAB BLOOD ORDERABLES Final Result [facility] Department [place] [address] * (ABNORMAL) Urinalysis reflex to microscopic and culture Urine (02/08/2025 10:19 PM CDT) Pathologist [facility] Color, ur Straw Yellow Clarity, ur Clear Clear [facility] Specific gravity, ur 1.037(H) 1.003 - 1.030 [facility] pH, urine 7.0 [facility] Comment: Interpretive Data U rine pH is affected by diet, medications, systemic acid-base disturbances, and renal tubular function. pH may affect urinary stone formation. For example, urine pH below 6.0 may help reduce the tendency for calcium phosphate stones and pH greater than 6.0 may reduce the tendency for uric acid stone formation. Source: [employer] Current Interpretive Data was last revised on 2017 Protein, ur ql Negative Negative [facility] Glucose, ur ql Negative Negative [facility] Ketones, ur Negative Negative [facility] Bilirubin, ur Negative Negative [facility] Blood, ur Negative Negative [facility] Urobilinogen, ur <2.0 <2.0 mg/dL [facility] Nitrite, ur Negative Negative [facility] Leukocyte esterase, ur Negative Negative [facility] UA reflex comment Reflex conditions for microscopic UA and culture not met. [facility] Urine 02/08/2025 10:1 9 PM CDT 02/08/2025 10:50 PM CDT us Jagdeep Roque MD LAB MICROBIOLOGY - GENERAL ORDERABLES Final Result [facility] Department [place] [address] * (ABNORMAL) Drugs of Abuse Screen, Urine [...] 2023. Barbiturates, ur Not Detected CutOff 200ng/mL [facility] Comment: Interpretive Data - Barbiturates: Samples containing greater than 200 ng/mL secobarbital or other cross-reacting barbiturate compounds are reported as positive. False positive and false negative results are possible. Confirmatory testing required for definitive results. Current Interpretive Data was last reviewed 2023. Benzodiazepines, ur Not Detected CutOff 100ng/mL [facility] Comment: Interpretive Data - Benzodiazepines: Samples containing greater than 100 ng/mL nordiazepam or other cross-reacting compounds are reported as positive. False positive and false negative results are possible. Confirmatory testing required for definitive results. Current Interpretive Data was last reviewed 2023. Cannabinoids, ur Screen Positive, presumptive (A) CutOff 50 ng/mL [facility] Comment: Interpretive Data - Cannabinoids: Samples containing greater than 50 ng/mL delta-9 THC -COOH or other cross- reacting compounds are reported as positive. False positive and false negative results are possible. Confirmatory testing required for definitive results. Current Interpretive Data was last reviewed 2023. Cocaine, ur Screen Positive, presumptive (A) CutOff 150ng/mL [facility] Comment: Interpretive Data - Cocaine: Samples containing greater than 150 ng/mL benzoylecgonine or other cross- reacting compounds are reported as positive. False positive and false negative results are possible. Confirmatory testing required for definitive results. Current Interpretive Data was last reviewed 2023. Fentanyl, Ur Not Detected CutOff 5 ng/mL [facility] Comment: Interpretive Data - Fentanyl: Samples containing greater than 5 ng/mL norfentanyl, fentanyl, or other cross-reacting fentanyl compounds are reported as positive. False positive and false negative results are possible. Confirmatory testing required for definitive results. Current Interpretive Data was last reviewed 2024. Methadone, ur Not Detected CutOff 300ng/mL [facility] Comment: Interpretive Data - Methadone: Samples containing greater than 300 ng/mL d,l-methadone or other cross-reacting compounds are reported as positive. False positive and false negative results are possible. Confirmatory testing required for definitive results. Current Interpretive Data was last reviewed 2023. Opiates, ur Not Detected CutOff 300ng/mL [facility] Comment: Interpretive Data - Opiates: Samples containing greater than 300 ng/mL morphine or other cross-reacting compounds are reported as positive. False positive and false negative results are possible. Confirmatory testing required for definitive results. Current Interpretive Data was last reviewed 2023. Oxycodone, ur Not Detected CutOff 100ng/mL [facility] Comment: Interpretive Data - Oxycodone: Samples containing greater than 100 ng/mL oxycodone or other cross-reacting compounds are reported as positive. False positive and false negative results are possible. Confirmatory testing required for definitive results. Current Interpretive Data was last reviewed 2023. Phencyclidine, ur Not Detected CutOff 25 ng/mL [facility] Comment: Interpretive Data - Phencyclidine: Samples containing greater than 25 ng/mL phencyclidine or other cross-reacting compounds are reported as positive. False positive and false negative results are possible. Confirmatory testing required for definitive results. Current Interpretive Data was last reviewed 2023. Urine Creatinine 67 mg/dL [facility] Comment: Interpretive Data Urine Creatinine: < 10 mg/dL is extremely dilute = or > 10 but < 20 mg/dL is dilute = or > 20 mg/dL is normal Current Interpretive Data was last revised on 2018. Urine 02/08/2025 10:1 5 PM CDT 02/08/2025 11:31 PM CDT Narrative [facility] - 02/09/2025 12:03 AM CDT Drug of Abuse screening is performed by immunoassay for medical purposes only. This is not to be used for Pain Management purposes. If Detected, confirmation testing will be performed for Amphetamines, Cocaine, Fentanyl, Methadone, Opiates, Oxycodone or Phencyclidine. us Jagdeep Roque MD LAB URINE ORDERABLES Final Result Performing Organization Address [facility] Co de Phone Number [facility] Department [place] [address] * (ABNORMAL) Cocaine Confirmation, Urine (02/08/2025 10:15 [...] needed. Performance characteristics were determined by the [facility] in a manner consistent with CLIA requirement and has not been cleared or approved by the U.S. Food and Drug Administration. Current interpretive data was last revised on 2021. Urine 02/08/2025 10:1 5 PM CDT 02/08/2025 11:35 PM CDT us Jagdeep Roqeu MD LAB URINE ORDERABLES Final Result Performing Organization Address [facility] Co de Phone Number [facility] Department [place] [address] * XR Chest 1 View (02/08/2025 7:29 [...] BLOOD ORDERABLES Final Result Performing Organization Address City/[facility]/ZIP Co de Phone Number [facility] Department [place] [address] * eGFR (02/08/2025 6:34 PM CDT) Pathologist [facility] eGFR >90 >=60 mL/min/1. 73 m2 Comment: [...] BLOOD ORDERABLES Final Result Performing Organization Address City/[facility]/ZIP Co de Phone Number [facility] Department [place] [address] * (ABNORMAL) CBC without differential (02/08/2025 6:34 PM CDT) [facility] WBC 11.1(H) 3.8 - 9.9 K/cumm Hgb 11.8(L) 13.0 - 17.5 g/dL [facility] Hct 35.2(L) 38.9 - 50.3 % [facility] Plt 180 150 - 400 K/cumm [facility] MPV 11.2 9.1 - 12.3 fL [facility] RBC 3.78(L) 4.30 - 5.80 M/cumm [facility] MCV 93.1 81.3 - 96.4 fL [facility] MCH 31.2 27.1 - 33.3 pg [facility] MCHC 33.5 32.3 - 35.7 g/dL [facility] RDW CV 12.3 11.1 - 14.9 % [facility] RDW SD 42.7 35.7 - 48.1 fL [facility] NRBC abs 0.00 0.00 - 0.01 K/cumm [facility] Blood 02/08/2025 6:34 PM CDT 02/08/2025 7:37 PM CDT Jagdeep Roque MD LAB BLOOD ORDERABLES Final Result Performing Organization Address City/[facility] Co de Phone Number [facility] [place] [address] * Hemoglobin A1c (02/08/2025 6:34 PM CDT) [facility] Hgb A1C 5.5 4.0 - 5.6 % Estimated Average Glucose 111 mg/dL [facility] Comment: The ADA recommends reporting an estimated [...] BLOOD ORDERABLES Final Result Performing Organization Address City/[facility]/ZIP Co de Phone Number [facility] Department [place] [address] * (ABNORMAL) Lipid panel (02/08/2025 6:34 PM [...] revised on 2018. Triglycerides 89 <=149 mg/dL [facility] Comment: Interpretive Data Ages < or [...] revised on 2018. HDL 28(L) >=40 mg/dL [facility] Comment: Interpretive Data Ages < or [...] on 2018. LDL, calculated 102 <=129 mg/dL [facility] Comment: Interpretive Data Ages < or [...] NCEP Expert Panel. Circulation 2004;110:227 3. Claus M et al. SHIRA Cardiol. 2020 March 20;5(5):540-548. doi: 10.1001/jamacardio.2020.0013 Current Interpretive Data was last revised on 2024. Non-HDL Cholesterol 119 mg/dL [facility] [place] Comment: Interpretive Data Ages < or = [...] last revised on 2018. Chol/HDL ratio 5 [facility] [place] Blood 02/08/2025 6:34 PM CDT 02/08/2025 7:37 PM CDT us Jagdeep Roque MD LAB BLOOD ORDERABLES Final Result [facility] [place] [facility] Department [place] [address] * (ABNORMAL) Basic metabolic panel (02/08/2025 6:34 PM CDT) Sodium 139 135 - 145 mmol/L Potassium, pl 4.2 3.3 - 4.9 mmol/L [facility] Chloride 104 97 - 110 mmol/L [facility] CO2 23 22 - 32 mmol/L [facility] Anion gap 12 2 - 15 mmol/L [facility] BUN 17 6 - 25 mg/dL [facility] Creatinine 0.69(L) 0.80 - 1.30 mg/dL [facility] Glucose 132 70 - 199 mg/dL [facility] Comment: Interpretive Data Fasting glucose >/= 126 [...] 2022. Calcium 9.0 8.5 - 10.3 mg/dL [facility] Blood 02/08/2025 6:34 PM CDT 02/08/2025 7:37 PM CDT us Jagdeep Roque MD LAB BLOOD ORDERABLES Final Result [facility] [place] [address] from Last 3 Months Insurance MEDICARE MEDICARE Advance Directives For more information, please contact: [phone] * Full Code (Latest Code Status on File) Date Activated Date Inactivated Comments 02/08/2025 5:35 PM 02/11/2025 10:04 PM Care Teams Tower Helper Relationship Specialty Start Date End Date Bernabe Allen DO [address] [place], [place] [id number] PCP - General Family Medicine 02/07/25
--- OUTSIDE RECORDS SUMMARY | 2025-02-28 10:46 | XMS_ITS | Clinical Summary ---
Author Organization [facility] Address [address] [place] [address] Care Team Providers Care Coin Dealer Name Role Phone nE Ibrahim MD Primary Care Provider [phone] Nick Barrientos MD Unavailable Allergies No known [...] Department Care Team Description 01/13/2025 12:41 PM CRIME INVESTIGATOR SPECIAL AGENT - 01/13/2025 11:59 PM [facility] Hospital Encounter [facility] [address] [place] [address] En Ibrahim MD Discharge Disposition: Home or [...] Sex Assigned at Male 01/13/2025 12:37 PM CRIME INVESTIGATOR SPECIAL AGENT Legal Sex Male 9:41 AM CDT Gender [...] Vaccine ( - 2023-2 5 season) 2024 RSV Immunization or 60+ Years (1 [...] Comments CTA NECK Routine 01/13/2025 1:27 PM CRIME INVESTIGATOR SPECIAL AGENT Carotid stenosis CT LUNG SCREENING Routine 01/13/2025 1:0 2 PM CRIME INVESTIGATOR SPECIAL AGENT Screening for lung cancer Personal history of tobacco use, presenting hazards to health HEPATITIS C ANTIBODY Routine 04/15/2020 12:37 PM CDT Need for hepatitis C screening test from Last 3 Months or Most Recently Relevant to Health Maintenance Results * CTA NECK (01/13/2025 1:27 PM CRIME INVESTIGATOR SPECIAL AGENT) Anatomical Region Laterality Modality Neck Computed Tomogra phy 01/14/2025 7:56 AM CRIME INVESTIGATOR SPECIAL AGENT Addenda Addendum by Nick Shaffer MD on 01/14/2025 9:56 AM CRIME INVESTIGATOR SPECIAL AGENT [address] [place] [facility] Axial, sagittal and coronal MIPS were constructed. Referred By: EN IBRAHIM Interpreted By: Nick Shaffer MD, 01/14/2025 9:55 AM Impressions 01/14/2025 8:05 AM CRIME INVESTIGATOR SPECIAL AGENT IMPRESSION: 1. 2.3 cm long segment of [...] 01/14/2025 7:56 AM Narrative 01/14/2025 8:05 AM CRIME INVESTIGATOR SPECIAL AGENT [address] [place] [address] EXAMINATION:CT angiogram of the neck with contrast [...] Procedure Note Nick Shaffer MD - 01/14/[address] [place] [address] EXAMINATION:CT angiogram of the neck with contrast [...] * CT LUNG SCREENING (01/13/2025 1:02 PM CRIME INVESTIGATOR SPECIAL AGENT) Anatomical Region Laterality Modality Chest Computed Tomogra phy 01/15/2025 2:28 PM CRIME INVESTIGATOR SPECIAL AGENT Narrative 01/15/2025 3:20 PM CRIME INVESTIGATOR SPECIAL AGENT [place] [id number] [facility] [place] [address] EXAM: LUNG SCREENING LOW-DOSE CT THORAX WITHOUT [...] December 2025. Thank you for choosing the [facility] Lung Screening Program. The attending radiologist has reviewed the image(s) and agrees with the content of this report. Ordered By: EN IBRAHIM Interpreted By: Brooks Eagle MD, 01/15/2025 2:28 PM Procedure Note Lonnie Brady MD - 01/15/[address] [place] [address] [facility] [place] [address] EXAM: LUNG SCREENING LOW-DOSE CT THORAX WITHOUT [...] December 2025. Thank you for choosing the [facility] ScreeningProgram. The attending radiologist has reviewed the image(s) and agrees with thecontent of this report. Ordered By: EN IBRAHIM Interpreted By: Brooks Eagle MD, 01/15/2025 2:28 PM us En Ibrahim MD CT Final Result * HEPATITIS C ANTIBODY (04/15/2020 12:37 PM CDT) HEPATITIS C AB NON-REACTI VE NON-REACT TELMA 04/16/2020 7:[address] [facility] Comment: ANTIBODIES TO HCV NOT DETECTED. DOES NOT EXCLUDE THE POSSIBILITY OF EXPOSURE TO HCV. 04/15/2020 12:3 7 PM CDT En Ibrahim MD LABORATORY Final Result [facility] [address] [place] [address], [id number] from Last 3 Months or Most Recently Relevant to Health Maintenance Insurance MEDICARE [facility] Care Teams Coin Dealer Relationship Specialty Start Date End Date En Ibrahim MD [address] [place] [phone] PCP - General FAMILY PRACTICE 04/03/18 Nick Barrientos MD [address] [place] [phone] Vascular/Attorney Lawyer INTERNAL MEDICINE 04/03/18
--- OUTSIDE RECORDS SUMMARY | 2025-02-28 10:46 | XMS_ITS | Encounter Summary ---
Author Organization [facility] Address [address] [place] [address] Phone Care Team Providers Care Dumper Bailer Operator Name Role Phone ShiloBernabe kate Angel Primary Care Provider Reason for Visit * Consultation (Routine) - Closed Specialty Diagnoses / Procedures Referred By Clint t Referred To Contact Neurosurgery Diagnoses Internal carotid artery stenosis, left Stephen, Bobby Llamas MD [address] [place] [address] Phone: tel: fax: [facility] (All Locations) Referral ID Status Reason Start Date Expiration Date V isits Requested Visits Authorized [id number] Closed Specialty Services Required 02/11/2025 03/13/2026 1 1 Encounter Details Date Type Department Care Team (Late st Contact Info) Description 02/27/2025 12:30 PM CDT Office Visit [facility] Neurosurgery [address] 6th [place] [address] [place] [address] Dylon Lowery MD [address] [place] [address] Internal carotid artery stenosis, left Social History Tobacco Use Types Packs/Day Years [...] on file documented as of this encounter Last Filed Vital Signs Vital Sign Reading Time Taken Comments Blood Pressure 112/62 02/27/2025 12:25 PM CDT Pulse 76 02/27/2025 12:25 PM CDT Temperature - - Respiratory Rate - - Oxygen Saturation - - Inhaled Oxygen Concentration - - Weight 63 kg (138 lb 12.8 oz) 02/27/2025 12:25 P M CDT Height 170.2 cm (5' 7 ) 02/27/2025 12:25 PM CDT Body Mass Index 21.74 02/27/2025 12:25 PM CDT documented in this encounter Progress Notes * Dylon Lowery MD - 02/27/2025 12:30 PM CDT Images from the original note were not included. Department of Neurological Surgery Dylon Loweyr M.D., F.A.A.N.S. [facility] Department of Neurological Surgery [address] [place] [address] NEW CLINIC VISIT Patient Name: CHARLES FERRIS Medical Record Number (MRN): [id number] Date of (): 1955 Encounter Date: 02/27/2025 PRIMARY CARE PROVIDER: Bernabe Allen DO REFERRING PROVIDER: Bobby Stephen MD CHIEF COMPLAINT Carotid stenosis HISTORY OF THE PRESENT ILLNESS Charles Ferris is a 69 y.o. male who is referred to me for evaluation of carotid stenosis. He was recently admitted to [facility] after presenting with a right MCA stroke. Workup demonstrated complete occlusion of the right internal carotid artery on CT angiogram and Doppler ultrasound. It also demonstrated severe stenosis of the left proximal cervical ICA. After a workup, he was discharged home. He was referred to us for evaluation and management of his left carotid stenosis. He states that his left-sided weakness has nearly resolved. He continues to have numbness in his left arm, forearm and hand. He feels that it is quite insensate. He also has significant left-sided lower facial weakness and dysarthria. He is on aspirin 325 mg and atorvastatin 80 mg. Patient Active Problem List Diagnosis Acute ischemic right MCA stroke (HCC) Bilateral carotid artery disease Hyperlipidemia Nasolacrimal duct obstruction, acquired, right Smoker No past medical history on file. History reviewed. No pertinent surgical history. Current Outpatient Medications on File Prior to Visit Medication Sig Dispense Refill amoxicillin-clavulanate (AUGMENTIN) 875-125 mg per tablet TAKE 1 TABLET BY MOUTH EVERY 12 HOURS FOR5 DAYS aspirin 325 mg tablet Take 1 tablet (325 mg total) by mouth daily atorvastatin (LIPITOR) 80 mg tablet Take 1 tablet (80 mg total) by mouth daily azithromycin (ZITHROMAX) 250 mg tablet TAKE 2 TABLETS BY MOUTH TODAY, THEN TAKE 1 TABLET DAILY FOR 4 DAYS DIRECTED dexAMETHasone (DECADRON) 1 mg tablet 1 (ONE) TABLET BY MOUTH ONE TIME DOSE, TAKE AT 11:00PM ferrous sulfate 325 mg (65 mg of elemental iron) tablet TAKE 1 TABLET BY MOUTH EVERY DAY FOR 90 DAYS hydroCHLOROthiazide (MICROZIDE) 12.5 mg capsule Take 1 capsule (12.5 mg total) by mouth every morning pravastatin (PRAVACHOL) 10 mg tablet Take by mouth predniSONE (DELTASONE) 20 mg tablet TAKE 2 TABLETS BY MOUTH DAILY FOR 5 DAYS tamsulosin (FLOMAX) 0.4 mg extended release capsule Take 1 capsule (0.4 mg total) by mouth daily with dinner nicotine (NICODERM CQ) [address] 1 patch on the skin daily for 24 hours (Patient not taking: Reported on 02/27/2025) No current facility-administered medications on file prior to visit. No Known Allergies Social History Tobacco Use Smoking status: Every Day Types: Cigarettes Smokeless tobacco: None Substance and Sexual Activity Drug use: None Sexual activity: None Alcohol Use: Not on file No family history on file. REVIEW OF SYSTEMS Please see scanned intake questionnaire. PHYSICAL EXAM: VITAL SIGNS Vitals: 02/27/25 1225 BP: 112/62 Pulse: 76 Weight: 63 kg (138 lb 12.8 oz) Height: 170.2 cm (5' 7 ) NEUROLOGICAL EXAM: The patient is awake, alert, oriented to person, place and time. Speech is clear and fluent. Pupils equal, round, reactive to light. Extraocular movements are intact. Left lower facial weakness. Tongue is midline. Motor: 5/5 RUE, RLE, LLE, trace giveaway weakness of LUE, Mild L drift. Endorses decreased sensation to LT throughout LUE. Gait steady REVIEW OF IMAGING: I have reviewed myself the following studies: Head CT 02/09/25. This shows hypodensity in the right MCA territory, prior primarily in the frontal and parietal lobes, indicative of recent infarct. CT angiogram of the neck and head performed on 02/08/2025. Occluded CHANTELLE beyond bifurcation. Severeproximal left ICA stenosis, low bifurcation. Bilateral Pcomm's present, likely small Acomm present as well. Calcified plaque at origin of right VA with mild stenosis. ASSESSMENT AND PLAN: Charles Ferris is a 69 y.o. male with recent right MCA infarct, occluded right cervical ICA and severe stenosis of the left cervical ICA. I had a detailed discussion with the patient and his son about his carotid stenosis. We discussed that for completely occluded carotid arteries, we typically do not attempt revascularization of the risk of periprocedural stroke is quite high. We typically manage this with antiplatelet agent such asaspirin and optimization of stroke risk factors. In his situation, he has severe stenosis of the proximal left cervical ICA. This likely contributesto some degree of hypoperfusion of the right side as it appears to be dependent on collaterals thatcurrently likely fills primarily from the posterior circulation via posterior communicating artery.Given the severity of the stenosis, he is at a risk for hypoperfusion of his left and right hemispheres over time and also has risk of progression an embolic strokes on the left side. Due to all these factors, I think left-sided carotid revascularization is reasonable. We discussed that in general CEA is associated with less periprocedural stroke risk, but higher risk of MD. MARNI typically has a higher risk of perioperative stroke risk but lesser risk of cardiac complications. In patient's situation, this risk of periprocedural stroke is likely equal since the right carotid artery is occluded and collateral flow to left hemispheric during cross clamping may not be strong and may need a shunt. We discussed that with MARNI, there is a need for dual antiplatelet therapy for at least 3 months, ideally for 6 months after a carotid stent, and the high-risk of longer-term in stent stenosis. There is also risk of access site complications and renal dysfunction. With regard to CEA, we also discussed the other surgical risks which include but are not limited toneck hematoma, infection nerve injuries in the neck including CN X, XI, XII, marginal mandibular among others. The patient and his son expressed understanding of the discussion, and the risks of each procedure and the potential benefits. They will discuss further and let us know how they wish to proceed Dylon Lowery MD, FAANS Cerebrovascular/Endovascular & Skull Base Tumor Sealer SanderTrim Attacher of Neurological Surgery, Radiology and Neurology [facility], [facility] Office: [phone] documented in this encounter Plan of Treatment Not on file documented as of this encounter Visit Diagnoses Diagnosis Internal carotid artery stenosis, left documented in this encounter Historical Medications * This list may reflect changes made after this encounter. predniSONE (DELTASONE) 20 mg tablet TAKE 2 TABLETS BY MOUTH DAILY FOR 5 DAYS 02/07/2025 pravastatin (PRAVACHOL) 10 mg tablet Take by mouth 04/02/2018 hydroCHLOROthiazi de (MICROZIDE) 12.5 mg capsule Take 1 capsule (12.5 mg total) by mouth every morning 11/30/2020 ferrous sulfate 325 mg (65 mg of elemental iron) tablet TAKE 1 TABLET BY MOUTH EVERY DAY FOR 90 DAYS 02/07/2025 dexAMETHasone (DECADRON) 1 mg tablet 1 (ONE) TABLET BY MOUTH ONE TIME DOSE, TAKE AT 11:00PM 01/16/2025 azithromycin (ZITHROMAX) 250 mg tablet TAKE 2 TABLETS BY MOUTH TODAY, THEN TAKE 1 TABLET DAILY FOR 4 DAYS DIRECTED 02/07/2025 amoxicillin-clavu lanate (AUGMENTIN) 875-125 mg per tablet TAKE 1 TABLET BY MOUTH EVERY 12 HOURS FOR 5 DAYS 02/07/2025 added in this encounter Orders Outpatient Referral Count Last Ordered Date Fir st Ordered Date AMB REFERRAL TO NEUROSURGERY 1 02/27/2025 documented in this encounter Care Teams Dumper Bailer Operator Relationship Specialty Start Date End Date Bernabe Allen DO [address] [place] [address] PCP - General Family Medicine 02/07/25 documented as of this encounter
[2025-02-28 11:20] LABS: Alanine Aminotransferase 41 U/L (16-63); Albumin Level 3.5 g/dL (3.4-5.0); Alkaline Phosphatase 81 U/L (46-116); Anion Gap 6 mmol/L (4-12); Aspartate Amino Transferase 30 U/L (15-37); Bilirubin,Total 0.5 mg/dL (0.00-1.00); Blood Urea Nitrogen 18 mg/dL (7-18); Carbon Dioxide 30 mmol/L (21-32); Chloride 105 mmol/L (98-108); Estimated Glomerular Filt Rate > 60; Ferritin 290 ng/mL (26-388); Osmolality Calculated 293 mOsm/kg (285-295); Potassium 4.8 mmol/L (3.5-5.1); Sodium 141 mmol/L (136-145); Total Protein 7.3 g/dL (6.4-8.2)
[2025-02-28 11:32] LABS: Glucose 101 mg/dL (70-99)
[2025-03-02 06:03] LABS: Hepatitis B Surface Antigen NON-REACTIVE (NON-REACTIVE)
[2025-03-02 06:33] LABS: Hepatitis A Antibody IgM NON-REACTIVE (NON-REACTIVE); Hepatitis B Core Antibody NON-REACTIVE (NON-REACTIVE); Hepatitis C Virus Antibody NON-REACTIVE (NON-REACTIVE)
== END 2025-02-28 10:12 | disposition home or self-care (01) ==
LOC: CHSLAB 10:12
PROVIDERS: PCP Family Medicine; Visit Provider Family Medicine
DX: I10 Essential (primary) hypertension (principal); R74.01 Elevation of levels of liver transaminase levels; D50.9 Iron deficiency anemia, unspecified
CPT/HCPCS: 36415; 80053; 80074; 82728; 85025

== ENCOUNTER 2025-03-22 11:51 | Outpatient (CLI) | payer MEDICARE, SELFPAY ==
[2025-03-22 12:36] LABS: Cholesterol 184 mg/dL (0-200); HDL Direct 77 mg/dL (40-60); LDL Cholesterol Calculated 100 mg/dL (<130); Triglycerides 33 mg/dL (0-150)
[2025-03-22 12:37] LABS: Iron 57 ug/dL (65-175); Percent Iron Saturation 1425 % (12-57)
--- OUTSIDE RECORDS SUMMARY | 2025-03-22 16:31 | XMS_ITS | Clinical Summary ---
Author Organization [facility] Address [address] [place] [address] Care Team Providers Care Contestant Coordinator Name Role Phone En Ibrahim MD Primary Care Provider [phone] Source Comments [facility],non-owned Affiliates and Associated Physician Practices is amultiple site organization consisting of ambulatory clinics and hospital sitesin [place], [place], [place] and [place]. This disclosure is being madepursuant to the Care Everywhere program and may not contain all information available regarding this patient. Last updated 18.[facility] Allergies No known active allergies Medications * Be aware that medications may not be up to date on this document. Alwaysverify current medications with the patient. pravastatin (PRAVACHOL) 10 MG tablet Take 1 tablet by mouth once daily 8 Active tamsulosin (FLOMAX) 0.4 MG capsule Take 0.4 mg by mouth once daily 3 8 Active Dextran 70-Hypromellose (ARTIFICIAL TEARS) 0.1-0.3 % SOLN 1 drop by Ophthalmic route as needed Active Active Problems Problem Noted Date Diagnosed Date Nasolacrimal duct obstruction, acquired, right 0 05/01/2018 Social History Tobacco Use Types Packs/Day Years Used Date Smoking Tobacco: Never Assessed Sex and Gender Information Value Date Recorded Sex Assigned at Not on file Legal Sex Male 2:34 PM CDT Gender Identity Not on file [...] FLEX SIG - COLON CA SCREENING 1955 HEPATITIS C SCREENING 06/30/1971 DTAP/TDAP/TD VACCINES [...] on patient's age to complete this topic Insurance Member Subscriber Plan / Payer (Ef fective for All Dates) Name:Nick Ferris Relation to Subscriber:Self Name:NICK FERRIS Payer ID:Not on file Group ID:Not on file Type:Medicaid [place] Address: [address] [id number] MEDICARE Care Teams Contestant Coordinator Relationship Specialty Start Date End Date En Ibrahim MD [address] [place] [address] PCP - General 04/10/18
--- OUTSIDE RECORDS SUMMARY | 2025-03-22 16:31 | XMS_ITS | Encounter Summary ---
Author Organization [facility] Address [address] [place] [address] Care Team Providers Care Screen Examiner Name Role Phone En Ibrahim MD Primary Care Provider [phone] Nick Barrientos MD Unavailable Encounter Details Date Type Department Care Team (Late st Contact Info) Description 04/27/2019 Abstract [facility]FL CONVERSION [address] [place] [address] , Generic Conversion, Social History Tobacco Use Types Packs/Day Years Used Date Smoking Tobacco: Every Day Cigarettes 1 45 Smokeless Tobacco: Never Alcohol Use Standard Drinks/Week Comments Yes 0 (1 standard drink = 0.6 oz pur e alcohol) moderate Sex and Gender Information Value Date Recorded Sex Assigned at Male 01/13/2025 12:37 PM LICENSING WORKER Legal Sex Male 9:41 AM CDT Gender Identity Not on file Sexual Orientation Not on file Occupation Industry Job Start Date Job End Date retired Not on file Not on file Not on file documented as of this encounter Plan of Treatment Not on file documented as of this encounter Visit Diagnoses Not on filedocumented in this encounter Care Teams Screen Examiner Relationship Specialty Start Date End Date En Ibrahim MD [address] [place] [address] PCP - General FAMILY PRACTICE 04/03/18 Nick Barrientos MD [address] [place] [address] Vascular/Commercial Truck Driver INTERNAL MEDICINE 04/03/18 documented as of this encounter
--- OUTSIDE RECORDS SUMMARY | 2025-03-22 16:31 | XMS_ITS | Clinical Summary ---
Author Organization [facility] Address [address] [place] [address] Phone Care Team Providers Care Basket Hand Braider Name Role Phone En Ibrahim MD Primary Care Provider [phone] Allergies No known active allergies Medications pravastatin [...] Comments Blood Pressure 120/78 12/11/2019 1:11 PM COMMUNICATIONS MARKETING INTERN Pulse 81 12/11/2019 1:11 PM COMMUNICATIONS MARKETING INTERN Temperature 36.5 C (97.7 F) 12/11/2019 1:11 PM COMMUNICATIONS MARKETING INTERN Respiratory Rate 20 12/11/2019 1:11 PM COMMUNICATIONS MARKETING INTERN Oxygen Saturation 97% 12/11/2019 1:11 PM COMMUNICATIONS MARKETING INTERN Inhaled Oxygen Concentration - - Weight 72.4 kg (159 lb 9.6 oz) 12/11/2019 1:11 P M COMMUNICATIONS MARKETING INTERN Height 182.9 cm (6') 12/11/2019 1:11 PM COMMUNICATIONS MARKETING INTERN Body Mass Index 21.65 12/11/2019 1:11 PM COMMUNICATIONS MARKETING INTERN Plan of Treatment Health Maintenance Due Date [...] Comments PSA DIAGNOSTIC,TOTAL Routine 12/11/2019 2:09 PM COMMUNICATIONS MARKETING INTERN BPH with obstruction/lower urinary tract symptoms from Last 3 Months or Most Recently Relevant to Health Maintenance Results * PSA DIAGNOSTIC,TOTAL (12/11/2019 2:09 PM COMMUNICATIONS MARKETING INTERN) PSA, TOTAL (PROSTATIC SPECIFIC ANTIGEN) 2.32 <=4.00 ng/mL 12/11/2019 4:42 PM COMMUNICATIONS MARKETING INTERN [facility] Blood specimen (specimen) Venipuncture / Unknown 12/11/2019 2:09 PM COMMUNICATIONS MARKETING INTERN 12/11/2019 3:46 PM COMMUNICATIONS MARKETING INTERN Narrative [facility] - 12/11/2019 4:42 PM COMMUNICATIONS MARKETING INTERN PSA NOTE: The PSA value should be used in conjunction with information available from clinical evaluation and other diagnostic procedures. us Teresa Aguilar MD CHEMISTRY ORDERABLES Final Result [facility] [address] [place] [address] from Last 3 Months or Most Recently Relevant to Health Maintenance Insurance MEDICARE Care Teams Basket Hand Braider Relationship Specialty Start Date End Date En Ibrahim MD [address] [place] [address] PCP - General Family Medicine 03/22/18
--- OUTSIDE RECORDS SUMMARY | 2025-03-22 16:32 | XMS_ITS | Clinical Summary ---
Author Organization [facility] Address [address] [place] [address] Care Team Providers Care Nail Maker Name Role Phone En Ibrahim MD Primary Care Provider [phone] Nick Barrientos MD Unavailable Allergies No known [...] Department Care Team Description 01/13/2025 12:41 PM [facility] - 01/13/2025 11:59 PM [facility] Hospital Encounter [facility] [address] [facility] [place] [address] En Ibrahim MD Discharge Disposition: Home or [...] Sex Assigned at Male 01/13/2025 12:37 PM [facility]UCE Legal Sex Male 9:41 AM CDT Gender [...] Colorectal Cancer Screening Colonoscopy (10 Years) 1955 DTaP, Tdap and Td Vaccines ( 1 - Tdap) 1972 Pneumococcal Vaccine: 50+ Ye ars (1 of 2 - PCV) 1972 Zoster Vaccines (1 of 2) 2003 [...] Comments CTA NECK Routine 01/13/2025 1:27 PM [facility] Carotid stenosis CT LUNG SCREENING Routine 01/13/2025 1:0 2 PM [facility] Screening for lung cancer Personal history of tobacco use, presenting hazards to health HEPATITIS C ANTIBODY Routine 04/15/2020 12:37 PM CDT Need for hepatitis C screening test from Last 3 Months or Most Recently Relevant to Health Maintenance Results * CTA NECK (01/13/2025 1:27 PM [facility]) Anatomical Region Laterality Modality Neck Computed Tomogra phy 01/14/2025 7:56 AM [facility] Addenda Addendum by Nick Shaffer MD on 01/14/2025 9:56 AM [facility] [address] [place] [address] Axial, sagittal and coronal MIPS were constructed. Referred By: EN IBRAHIM Interpreted By: Nick Shaffer MD, 01/14/2025 9:55 AM Impressions 01/14/2025 8:05 AM [facility] IMPRESSION: 1. 2.3 cm long segment of [...] 01/14/2025 7:56 AM Narrative 01/14/2025 8:05 AM [facility] [address] [place] [address] EXAMINATION:CT angiogram of the neck with contrast [...] Procedure Note Nick Shaffer MD - 01/14/[address] [place] [address] EXAMINATION:CT angiogram of the neck with contrast [...] * CT LUNG SCREENING (01/13/2025 1:02 PM [facility]) Anatomical Region Laterality Modality Chest Computed Tomogra phy 01/15/2025 2:28 PM [facility] Narrative 01/15/2025 3:20 PM [facility] [address] [place] [address] EXAM: LUNG SCREENING LOW-DOSE CT THORAX WITHOUT [...] December 2025. Thank you for choosing the [facility] Lung Screening Program. The attending radiologist has reviewed the image(s) and agrees with the content of this report. Ordered By: EN IBRAHIM Interpreted By: Brooks Eagle MD, 01/15/2025 2:28 PM Procedure Note Lonnie Brady MD - 01/15/2025 [place] [address] [facility] [place] [address] EXAM: LUNG SCREENING LOW-DOSE CT THORAX WITHOUT [...] December 2025. Thank you for choosing the [facility] Lung ScreeningProgram. The attending radiologist has reviewed the image(s) and agrees with thecontent of this report. Ordered By: EN IBRAHIM Interpreted By: Brooks Eagle MD, 01/15/2025 2:28 PM us En Ibrahim MD CT Final Result * HEPATITIS C ANTIBODY (04/15/2020 12:37 PM CDT) HEPATITIS C AB NON-REACTI VE NON-REACT TELMA 04/16/2020 7:04 PM CDT [facility] Comment: ANTIBODIES TO HCV NOT DETECTED. DOES NOT EXCLUDE THE POSSIBILITY OF EXPOSURE TO HCV. 04/15/2020 12:3 7 PM CDT En Ibrahim MD LABORATORY Final Result [facility] [address] [place] [address], [id number] from Last 3 Months or Most Recently Relevant to Health Maintenance Insurance MEDICARE [facility] Care Teams Nail Maker Relationship Specialty Start Date End Date En Ibrahim MD [address] [place] [phone] PCP - General FAMILY PRACTICE 04/03/18 Nick Barrientos MD [address] [place] [phone] Vascular/Supervisor Taping INTERNAL MEDICINE 04/03/18
--- OUTSIDE RECORDS SUMMARY | 2025-03-22 16:32 | XMS_ITS | Clinical Summary ---
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 Active 11-20 00:00: 00 DYSARTHRIA FOLLOWING UNSPECIFIED CEREBROVASCU LAR DISEASE Active 11-20 00:00: 00 ESSENTIAL (PRIMARY) HYPERTENSION Active 11-20 00:00: 00 HYPERLIPIDEM IA, UNSPECIFIED Active 11-20 00:00: 00 BENIGN PROSTATIC HYPERPLASIA WITHOUT LOWER URINRY TRACT SYMP Active 11-20 00:00: 00 NICOTINE DEPENDENCE, CIGARETTES, UNCOMPLICATE D Active 11-20 00:00: 00 IRON DEFICIENCY ANEMIA, UNSPECIFIED Active 11-20 00:00: 00 HYPOTENSION, UNSPECIFIED Active 11-20 00:00: 00 Problems related to health literacy Active 11-20 00:00: 00 PRISON (CURRENT) USE OF ASPIRIN Active 11-20 00:00: 00 PRISON (CURRENT) USE OF ANTITHROMBOT ICS/ANTIPLAT ELETS Active 11-20 00:00: 00 Allergies, Adverse Reactions, Alerts Allergy Name Allergy Type Status Severity Reaction(s) Onset Date Inactive Date Treating Clinician Comments NKA Propensity to adverse reactions Active 2025-02 22:09:3 1 Medications Ordered Medication Name Filled Medication Name Start Date Stop Date Current Medication? Ordering Clinician Indication Dosage Frequency Signature (SIG) Comments Components aspirin 325 mg tablet 4-13 00:00: 00 Yes [id number] 1 tablet DAILY 1 tablet DAILY (route: oral) Med Classific ation: Analgesic , Anti-infl ammatory or Antipyret ic atorvastati n 80 mg tablet 03-02 00:00: 00 Yes [id number] 1 tablet BEDTIME 1 tablet BEDTIME (route: oral) Med Classific ation: Cardiovas cular Therapy Agents Brilinta 90 mg tablet 03-02 00:00: 00 Yes [id number] 1 tablet 2 TIMES DAILY 1 tablet 2 TIMES DAILY (route: oral) Med Classific ation: Hematolog ical Agents nicotine 7 mg/24 hr daily transdermal patch 03-02 00:00: 00 Yes [id number] 1 patch, transde rmal 24 hours DAILY 1 patch, transderma l 24 hours DAILY (route: transderma l) Med Classific ation: Chemical Dependenc y, Agents to Treat tamsulosin 0.4 mg capsule 03-02 00:00: 00 Yes [id number] 1 capsule BEDTIME 1 capsule BEDTIME (route: oral) Med Classific ation: Genitouri nary Therapy Colace 100 mg capsule 03-18 00:00: 00 Yes [id number] 1 capsule 2 TIMES DAILY 1 capsule 2 TIMES DAILY (route: oral) Med Classific ation: Gastroint estinal Therapy Agents midodrine 5 mg tablet 03-18 00:00: 00 Yes [id number] 1 tablet 3 TIMES DAILY 1 tablet 3 TIMES DAILY (route: oral) Med Classific ation: Cardiovas cular Therapy Agents pravastatin 10 mg tablet 03-18 00:00: 00 Yes [id number] 1 tablet BEDTIME 1 tablet BEDTIME (route: oral) Med Classific ation: Cardiovas cular Therapy Agents Tylenol Extra Strength 500 mg tablet 03-18 00:00: 00 Yes [id number] 2 tablet EVERY 6 HOURS 2 tablet EVERY 6 HOURS (route: oral) Med Classific ation: Analgesic , Anti-infl ammatory or Antipyret ic Immunizations Ordered Immunization Name Filled Immunization Name Date Status Comments Refusal Reason PNEUMOCOCCAL (PPV), PPV 2025-03-03 00:00:00 REFUSED PNEUMONIA, PPV 2025-03-03 00:00:00 Vital Signs Vital Name Observation Time Observation Value Commen ts Temperature 2025-03-18 13:08:00.000 97.9 [degF] Temperature 2025-03-03 14:24:00.000 97.8 [degF] BMI (%) 2025-03-18 13:08:00.000 21 kg/m2 BMI (%) 2025-03-03 14:24:00.000 19 kg/m2 Height 2025-03-18 13:08:00.000 67 [in_us] Height 2025-03-03 14:24:00.000 71 [in_us] Pulse 2025-03-18 13:08:00.000 72 /min Pulse 2025-03-03 14:24:00.000 89 /min O2 Saturation (%) 2025-03-18 13:08:00.000 98 % O2 Saturation (%) 2025-03-03 14:24:00.000 95 % Respirations 2025-03-18 13:08:00.000 18 /min Respirations 2025-03-03 14:24:00.000 18 /min Weight (lbs) 2025-03-18 13:08:00.000 138 [lb_av] Weight (lbs) 2025-03-03 14:24:00.000 140 [lb_av] Systolic Blood Pressure 2025-03-18 13:08:00.000 110 mm [Hg] Systolic Blood Pressure 2025-03-03 14:24:00.000 110 mm [Hg] Diastolic Blood Pressure 2025-03-18 13:08:00.000 62 mm [Hg] Diastolic Blood Pressure 2025-03-03 14:24:00.000 62 mm [Hg] Plan of Treatment Planned Activity Planned Date Details Comments Future Scheduled Test SKILLED NU RSE TO EVALUATE PATIENT, IDENTIFY PRIMARY AND CO-MORBID CONDITIONS CODED PER CODING GUIDELINES, AND DEVELOP PATIENT SPECIFIC PLAN OF CARE THAT INCLUDES PATIENT GOAL FOR HOME HEALTH. [code = SKILLED NURSE TO EVALUATE PATIENT, IDENTIFY PRIMARY AND CO-MORBID CONDITIONS CODED PER CODING GUIDELINES, AND DEVELOP PATIENT SPECIFIC PLAN OF CARE THAT INCLUDES PATIENT GOAL FOR HOME HEALTH.] Future Scheduled Test [facility] MAY ACCEPT ORDERS FROM THE FOLLOWING PHYSICIANS: DR TYLER CHAIREZ GRADE SETTER/TREATING PROVIDERS [code = HOME HEALTH AGENCY MAY ACCEPT ORDERS FROM THE FOLLOWING PHYSICIANS: DR TYLER CHAIREZ GRADE SETTER/TREATING PROVIDERS] Future Scheduled Test SKILLED NU RSE FOR INSTRUCTION/ REINFORCEMENT OF NEEDS RELATED TO NUTRITION/HYDRATION. [code = SKILLED NURSE FOR INSTRUCTION/ REINFORCEMENT OF NEEDS RELATED TO NUTRITION/HYDRATION.] Future Scheduled Test SPEECH THE RAPIST TO EVALUATE PATIENT FOR DYSPHAGIA. [code = SPEECH THERAPIST TO EVALUATE PATIENT FOR DYSPHAGIA.] Future Scheduled Test SKILLED NU RSE TO PROVIDE TEACHING ON SIGNS AND SYMPTOMS AND MANAGEMENT OF HYPERTENSION. [code = SKILLED NURSE TO PROVIDE TEACHING ON SIGNS AND SYMPTOMS AND MANAGEMENT OF HYPERTENSION.] Future Scheduled Test SKILLED NU RSE TO INSTRUCT PATIENT/CAREGIVER ON WARNING SIGNS OF CVA, RISK FACTORS, AND METHODS TO MANAGE LEFT FACIAL DROOP/DYSARTHRIA/DYSPHGIA/LEFT ARM MONOPLEGIA D/T CVA. [code = SKILLED NURSE TO INSTRUCT PATIENT/CAREGIVER ON WARNING SIGNS OF CVA, RISK FACTORS, AND METHODS TO MANAGE LEFT FACIAL DROOP/DYSARTHRIA/DYSPHGIA/LEFT ARM MONOPLEGIA D/T CVA.] Future Scheduled Test PATIENT BRAMBILA S A RISK OF HOSPITALIZATION AND ED USE. SKILLED NURSE TO ESTABLISH SUPPORT MEASURES TO MINIMIZE RISK OF HOSPITALIZATION AND ED USE, AND INSTRUCT PATIENT/CAREGIVER ON METHODS TO REDUCE AVOIDABLE HOSPITALIZATION AND ED USE. [code = PATIENT HAS A RISK OF HOSPITALIZATION AND ED USE. SKILLED NURSE TO ESTABLISH SUPPORT MEASURES TO MINIMIZE RISK OF HOSPITALIZATION AND ED USE, AND INSTRUCT PATIENT/CAREGIVER ON METHODS TO REDUCE AVOIDABLE HOSPITALIZATION AND ED USE.] Future Scheduled Test SKILLED NU RSE TO PROVIDE INSTRUCTION TO PATIENT/CAREGIVER RELATED TO DISCHARGE PLANNING. [code = SKILLED NURSE TO PROVIDE INSTRUCTION TO PATIENT/CAREGIVER RELATED TO DISCHARGE PLANNING.] Future Scheduled Test SKILLED NU RSE TO PERFORM ENVIRONMENTAL SAFETY RISK ASSESSMENT AND FALL RISK ASSESSMENT AND PROVIDE INSTRUCTION TO IMPLEMENT ENVIRONMENTAL SAFETY AND FALL PREVENTION STRATEGIES THROUGHOUT THE CERTIFICATION PERIOD. SKILLED NURSE WILL MAINTAIN SITUATIONAL AWARENESS AND WILL NOTIFY CLINICAL DUMPER MOLD CLEANER AND PHYSICIAN/PROVIDER WITH ANY CHANGE IN CONDITION. [code = SKILLED NURSE TO PERFORM ENVIRONMENTAL SAFETY RISK ASSESSMENT AND FALL RISK ASSESSMENT AND PROVIDE INSTRUCTION TO IMPLEMENT ENVIRONMENTAL SAFETY AND FALL PREVENTION STRATEGIES THROUGHOUT THE CERTIFICATION PERIOD. SKILLED NURSE WILL MAINTAIN SITUATIONAL AWARENESS AND WILL NOTIFY CLINICAL DUMPER MOLD CLEANER AND PHYSICIAN/PROVIDER WITH ANY CHANGE IN CONDITION.] Future Scheduled Test SKILLED NU RSE FOR OBSERVATION AND ASSESSMENT OF PATIENTS PAIN LEVEL AND EFFECTIVENESS OF PAIN MANAGEMENT REGIMEN. SKILLED NURSE TO INSTRUCT PATIENT/CAREGIVER REGARDING PHARMACOLOGIC AND NON-PHARMACOLOGIC PAIN CONTROL MEASURES. SKILLED NURSE TO REPORT TO PHYSICIAN IF PAIN IS UNCONTROLLED WITH CURRENT PAIN MANAGEMENT REGIMEN. [code = SKILLED NURSE FOR OBSERVATION AND ASSESSMENT OF PATIENTS PAIN LEVEL AND EFFECTIVENESS OF PAIN MANAGEMENT REGIMEN. SKILLED NURSE TO INSTRUCT PATIENT/CAREGIVER REGARDING PHARMACOLOGIC AND NON-PHARMACOLOGIC PAIN CONTROL MEASURES. SKILLED NURSE TO REPORT TO PHYSICIAN IF PAIN IS UNCONTROLLED WITH CURRENT PAIN MANAGEMENT REGIMEN.] Future Scheduled Test SKILLED NU RSE TO ASSESS PATIENT'S SKIN INTEGRITY AND INSTRUCT PATIENT/CAREGIVER ON MEASURES TO PREVENT PRESSURE ULCERS. [code = SKILLED NURSE TO ASSESS PATIENT'S SKIN INTEGRITY AND INSTRUCT PATIENT/CAREGIVER ON MEASURES TO PREVENT PRESSURE ULCERS.] Future Scheduled Test SKILLED NU RSE TO REVIEW PATIENT MEDICATIONS (PRESCRIPTION/OTC). INSTRUCT PATIENT/CAREGIVER ON ALL MEDICATIONS INCLUDING PURPOSE, WHEN TO TAKE, IMPORTANCE OF MEDICATION ADHERENCE, MONITORING OF EFFECTIVENESS, ADVERSE DRUG REACTIONS, POSSIBLE SIDE EFFECTS, AND WHEN TO NOTIFY AGENCY OR PHYSICIAN/PROVIDER OF ANY CONCERNS. [code = SKILLED NURSE TO REVIEW PATIENT MEDICATIONS (PRESCRIPTION/OTC). INSTRUCT PATIENT/CAREGIVER ON ALL MEDICATIONS INCLUDING PURPOSE, WHEN TO TAKE, IMPORTANCE OF MEDICATION ADHERENCE, MONITORING OF EFFECTIVENESS, ADVERSE DRUG REACTIONS, POSSIBLE SIDE EFFECTS, AND WHEN TO NOTIFY AGENCY OR PHYSICIAN/PROVIDER OF ANY CONCERNS.] Goal 2025-03-18 Patient Goal - TO TALK SHAHBAZ R Goal Patient Goal - TO TALK SHAHBAZ R Goal Provider Goal - A PLAN OF CARE WILL BE ESTABLISHED THAT MEETS PATIENT'S [facility] NEEDS AND INCLUDES PATIENT GOAL FOR HOME HEALTH. Goal Provider Goal - ADDITIONAL ORDERS WILL BE RECEIVED FROM ALTERNATE PHYSICIAN IN A TIMELY MANNER THROUGHOUT THE CERTIFICATION PERIOD. Goal Provider Goal - PATIENT/CAREGIVER WILL DEMONSTRATE ABILITY TO SELF MANAGE NEEDS RELATED TO NUTRITION/HYDRATION THROUGHOUT THE EPISODE. Goal Provider Goal - SPEECH THERAPIST EVALUATION TO BE COMPLETED WITH RECOMMENDATIONS AND/OR WRITTEN PLAN OF TREATMENT ESTABLISHED FOR THE PHYSICIANS SIGNATURE. Goal Provider Goal - PATIENT/CAREGIVER WILL VERBALIZE SIGNS AND SYMPTOMS OF HYPERTENSION AND WILL BE ABLE TO DEMONSTRATE ABILITY TO MANAGE EXACERBATION BY END OF THE EPISODE. Goal Provider Goal - PATIENT/CAREGIVER WILL DEMONSTRATE COMPLIANCE WITH TREATMENT REGIME AND VERBALIZE SIGNS AND SYMPTOMS TO REPORT WELL POSSIBLE COMPLICATIONS OF CVA BY END OF EPISODE. Goal Provider Goal - PATIENT WILL HAVE SUPPORT MEASURES ESTABLISHED TO PREVENT HOSPITALIZATION AND ED USE AND PATIENT/CAREGIVER WILL VERBALIZE/DEMONSTRATE METHODS TO REDUCE AVOIDABLE HOSPITALIZATION AND ED USE BY END OF EPISODE. Goal Provider Goal - PATIENT/CAREGIVER WILL VERBALIZE UNDERSTANDING OF DISCHARGE PLANNING INSTRUCTIONS BY DATE OF DISCHARGE. Goal Provider Goal - PATIENT/CAREGIVER WILL VERBALIZE/DEMONSTRATE EFFECTIVE ENVIRONMENTAL SAFETY AND FALL PREVENTION STRATEGIES, WILL REMAIN SAFE IN THE COMMUNITY, AND WILL BE FREE OF DANGER TO SELF AND OTHERS THROUGHOUT THE CERTIFICATION PERIOD. Goal Provider Goal - PATIENT/CAREGIVER WILL DEMONSTRATE UNDERSTANDING OF PHARMACOLOGIC AND NONPHARMACOLOGIC PAIN CONTROL MEASURES AND PATIENT WILL HAVE IMPROVEMENT IN PAIN INTERFERING WITH ACTIVITY EVIDENCED BY PAIN CONTROLLED AT LEVEL OF 5 ON 0-10 PAIN SCALE OR LESS BY END OF CERTIFICATION PERIOD. Goal Provider Goal - PATIENT/CAREGIVER WILL VERBALIZE UNDERSTANDING OF PRESSURE ULCER PREVENTION BY END OF THE EPISODE. Goal Provider Goal - PATIENT/CAREGIVER WILL VERBALIZE UNDERSTANDING OF EDUCATION PROVIDED ON MEDICATIONS BY THE END OF THE CERTIFICATION PERIOD. Progress Notes Progress Notes <paragraph>[Visit Date: 2024 by KARTIK BOWERS RN]:</paragraph><paragraph>PATIENT WAS SEEN TODAY FOR RESUMPTION OF CARE VISIT UPON ARRIVAL PATIENT ANSWERED THE DOOR ALLOWING LANGUAGE INTERPRETER INTO THE KITCHEN AREA PATIENT RETURNED HOME LAST MONDAY [facility] STAY FOR A LEFT CAROTID STENT PLACEMENT. PRIMARY DIAGNOSIS IS FACIAL WEAKNESS FOLLOWING CEREBROVASCULAR DISEASE, PAST MEDICAL HISTORY INCLUDES DYSRHYTHMIA FOLLOWING UNSPECIFIED CEREBROVASCULAR DISEASE, ESSENTIAL PRIMARY HYPERTENSION, HYPERLIPIDEMIA UNSPECIFIED, OCCLUSION/STENOSIS OF RIGHT CAROTID ARTERY, BENIGN PROSTATIC HYPERPLASIA WITHOUT LOWER URINARY TRACT INFECTION SYMPTOMS, NICOTINE DEPENDENCE CIGARETTES, PROBLEMS RELATED TO HEALTH LITERACY, AND LONG-TERM ASPIRIN USE. PATIENT IS ALERT AND ORIENTED X3 WITH OCCASIONAL FORGETFULNESS, FAIR GROOMED ELDERLY MALE PATIENT WHO IS PLEASANT AND COOPERATIVE THROUGHOUT THE ENTIRE VISIT. VITAL SIGNS ASSESSED AND WITHIN NORMAL LIMITS, HEART RATE AND RHYTHM ASSESSED AND WITHIN NORMAL LIMITS, PATIENT DENIES ANY HEART PALPITATIONS, CHEST PAIN, OR DIZZINESS AT THIS VISIT OR SINCE THE LAST VISIT. BILATERAL LUNG SOUNDS CLEAR TO ALL LAMAR, PATIENT IS NOTED TO BECOME SHORT OF BREATH WHEN TALKING OR WITH MODERATE EXERTION, PATIENT IS STILL A SMOKER, ABDOMEN SOFT, NONDISTENDED, BOWEL SOUNDS POSITIVE X4 QUADRANTS WITH LAST BOWEL MOVEMENT BEING EARLIER TODAY. PATIENT DENIES ANY CONSTIPATION OR DIARRHEA, PATIENT DENIES ANY PROBLEMS URINATING, NO EDEMA NOTED AT THIS VISIT. AT TODAY'S VISIT PATIENT WAS INSTRUCTED ON FALL PREVENTION, MEDICATION COMPLIANCE, AND DIAGNOSIS EDUCATION. REREVIEWED THAT [facility] CARES AND TO CALL US FIRST WITH ANY QUESTIONS, CONCERNS OR CHANGES IN THE PATIENT MAY HAVE. MEDICATIONS WERE REVIEWED AND IT WAS NOTED THAT ASPIRIN CAN INTERACT WITH BRILINTA. DR. TONI RUIZ OFFICE WAS MADE AWARE NO NEW ORDERS AT THIS TIME. AFTER TODAY'S VISIT [facility] WILL CONTINUE TO SEE THE PATIENT ONE TIME A WEEK FOR A TOTAL OF 4 WEEKS, FOR EDUCATION AND ASSESSMENT. SPEECH THERAPY TO EVALUATE AND TREAT PER THEIR PLAN OF CARE, FOR SPEECH DEFICIT. CALL PLACED TO DR. HAMILTON OFFICE AND SPOKE WITH GUILLAUME CLARIFYING THE ASPIRIN AND BRILINTA INTERACTION AND THE DOCTOR STILL WANTS CHARLES TO TAKE BOTH OF THESE ALSO CLARIFIED THE TYLENOL AND THE COLACE AND IT IS OKAY TO CONTINUE TO TAKE THOSE AND MADE THEM AWARE OF PLAN OF CARE THEY ARE IN AGREEMENT OF THE PLAN OF CARE AND WILL SIGN OFF ON ALL HOME HEALTH ORDERS. SKIN ASSESSMENT COMPLETED AND NO OPEN AREAS NOTED AT THIS TIME. WE REVIEWED THE CALENDAR FOR THE NEXT SCHEDULED VISIT, REMINDED HIM THAT [facility] CARES, AND TO CALL [facility] CAR[facility] FIRST WITH ANY QUESTIONS CONCERNS OR CHANGES HE MAY HAVE</paragraph> Encounters Start Date/Time End Date/Time Encounter Type Admission Type Attending Clinicians Care Facility Care Department Encounter ID Discharge Date Discharge Status Discharge Condition Discharge Reason Percent Goals Met 2025-03-03 00:00:00 2025-05-01 00:00:00 Outpatient NEW ADMISSION KACY CISNEROS [facility] [id number] [phone]
== END 2025-03-22 11:52 | disposition home or self-care (01) ==
LOC: CHSLAB 11:52
PROVIDERS: Nurse Practitioner Family; PCP Family Medicine; Visit Provider Family Medicine
DX: R79.89 Other specified abnormal findings of blood chemistry (principal); I65.01 Occlusion and stenosis of right vertebral artery
CPT/HCPCS: 36415; 80061; 83540; 83550